=== PATIENT | female | born 1960 | race Caucasian/White ===

== ENCOUNTER → 2016-12-10 | Outpatient (CLI) | payer MEDICAID ==
[~2016-12-10] MED LIST: /ADVA50050; /ESOM40CA PO; /MOXI40TA; /TIOT18INH INH; ADV500INH INH; ADVAIR INH; ALBU17IN2 INH; ALBU83IN INH; ALBUT0.05 INHALATION; ALBUTEROL INHALATION; ALBUTEROL LIQ; AMIT75TA PO; AMIT75TA2 PO; AMITRIP PO; AMITRIP100 PO; AMITRIP75 PO; AMO500 PO; ASPI1TAB PO; ASPI81TA13 PO; ATOR1TAB21 PO; ATROVENT0.02%; ATROVENT0.02% INH; ATROVENTIN INHALATION; AZIT250T3 OR; AZMACORT; BACLOFEN10 PO; BENZ100C5 PO; COLA100C2 PO; COMBAER6 INH; COMBIVENT; COMBIVENT PO; CYMBALTA20 PO; DARVOCET-N PO; DULO20CA PO; FLEXERIL PO; FLEXERIL10 PO; GABA-282 PO; GUAI1TAB PO; GUAI400T6 PO; HABITROL2 TOPICAL; IPRA2IN INH; IPRATROP INHALATION; IPRATROPIUM; LIDODERM PATCH; LIPI10TA PO; LIPITOR10 PO; MELO15TA4 PO; MELOPOW; MELOPOW PO; MOBIC15 PO; MUCINEX; MUCU400T2 PO; NASONEX NASAL; NASONEX NASAL SPRAY; NEUR300C PO; NEURONTIN3 PO; NICO14DI3; NICO21DI4; NICO21PAT TD; NORCO PO; OCEAN NASAL SPRAY; OMEP20CA3 PO; PRED10TA PO; PRED10TA2; PREVACID; PREVACID30 PO; RELAFEN PO; SING10TA31 PO; SING10TA32 PO; SINGULAI10 PO; SPIR1CAP INH; SPIRIVA INH; TESS100C; TESS100C PO; TESSALO100 PO; TORADOL PO; TRAM50TA2 PO; ULTRTA; ULTRTA PO; VENL75TA2 PO; VENL75TA3 PO; VICO5TAB; VICODIN PO; VIOXX25 PO; VITA50003 PO; [UNRECOGNIZED DRUG - OTHER]; [UNRECOGNIZED DRUG - OTHER] PO; [UNRECOGNIZED DRUG - OTHER] PO
--- NOTE | 2016-12-10 12:07 | REP ---
Bilateral carotid artery duplex ultrasound: Peak flow velocity analysis: RIGHT LEFT ICA. Peak flow velocity cm/sec 53 the 43 ICA Diastolic flow velocity cm/sec 24 18 ICA/CCA Ratio 0.9 0.7 There is a small shallow focal atheromatous plaque at the origin of the right ICA. Otherwise there is intimal thickening bilaterally. Peak flow velocities are normal. Findings indicate less than 50% narrowing. There is no significant stenosis on the right on the left. There is antegrade flow in the vertebral arteries bilaterally. Signed by Anant Delgado MD 12/10/2016 11:58 A
--- NOTE | 2016-12-10 12:30 | REP ---
MR BRAIN WITHOUT CONTRAST: HISTORY: Dizziness. There are no areas of abnormal signal intensity in the brain. There is no intraparenchymal hemorrhage, infarct, mass or midline shift. The ventricular system is normal in appearance. There is no extracerebral collection. Minimal mucosal thickening is present in the left mastoid air cells. The sinuses are clear. Impression: There is no intracranial lesion. Signed by Frandy Bran MD 12/10/2016 12:33 P
== END ==
LOC: M RAD 10:41
PROVIDERS: ATTEND Physician Assistant Medical
DX: R42 Dizziness and giddiness (principal)

== ENCOUNTER → 2016-12-31 | Outpatient (CLI) | payer MEDICAID ==
[2016-12-31 16:47] LABS: BASO % 0.3 % (0.0-1.0); EOS # 0.2 K/mm3 (0.0-0.50); EOS % 2.5 % (0.0-3.0); LYMPH # 3.3 K/mm3 (1.5-4.5); LYMPH % 36.1 % (24.0-44.0); MEAN CORPUSCULAR HEMOGLOBIN 28.7 pg (27.0-33.0); MEAN CORPUSCULAR HGB CONC 31.3 g/dl (32.0-36.5); MEAN CORPUSCULAR VOLUME 91.6 fl (80.0-96.0); MONO # 0.6 K/mm3 (0.0-0.8); NEUTROPHILS # 4.8 K/mm3 (1.8-7.7); NEUTROPHILS % 52.3 % (36.0-66.0); RED CELL DISTRIBUTION WIDTH 12.4 % (11.5-14.5); WHITE BLOOD COUNT 9.2 K/mm3 (4.0-10.0)
[2016-12-31 16:59] LABS: ALBUMIN 3.5 GM/DL (3.2-5.2); ALKALINE PHOSPHATASE 83 U/L (45-117); ALT/SGPT 20 U/L (12-78); ANION GAP 6 MEQ/L (8-16); AST/SGOT 12 U/L (15-37); BILIRUBIN,TOTAL 0.3 MG/DL (0.2-1.0); BLOOD UREA NITROGEN 13 MG/DL (7-18); CALCIUM LEVEL 8.7 MG/DL (8.5-10.1); CARBON DIOXIDE LEVEL 35 MEQ/L (21-32); CHLORIDE LEVEL 98 MEQ/L (98-107); CREATININE FOR GFR 0.52 MG/DL (0.55-1.02); FERRITIN 44 NG/ML (8-252); GLOMERULAR FILTRATION RATE > 60.0 (>51); GLUCOSE, FASTING 97 MG/DL (70-105); POTASSIUM SERUM 4.5 MEQ/L (3.5-5.1); SODIUM LEVEL 139 MEQ/L (136-145); TOTAL PROTEIN 6.2 GM/DL (6.4-8.2)
[2016-12-31 17:01] LABS: FOLATE 9.6 NG/ML; VITAMIN B12 LEVEL 386 PG/ML
== END ==
LOC: M WUC 11:24
PROVIDERS: ATTEND Physician Assistant Medical
DX: R42 Dizziness and giddiness (principal)

== ENCOUNTER → 2018-01-17 | Outpatient (REF) | payer OTHER, MEDICAID ==
[2018-01-17 19:22] LABS: BASO % 0.1 % (0.0-1.0); EOS % 0.1 % (0.0-3.0); HEMATOCRIT 38.4 % (36.0-47.0); HEMOGLOBIN 11.9 g/dl (12.0-15.5); IMMATURE GRANULOCYTE % 0.3 % (0-3.0); LYMPH % 11.1 % (24.0-44.0); MEAN CORPUSCULAR HEMOGLOBIN 27.3 pg (27.0-33.0); MEAN CORPUSCULAR VOLUME 88.1 fl (80.0-96.0); MONO # 0.2 10^3/uL (0.0-0.8); MONO % 1.8 % (0.0-5.0); NEUTROPHILS # 7.5 10^3/uL (1.8-7.7); NEUTROPHILS % 86.6 % (36.0-66.0); PLATELET COUNT, AUTOMATED 252 10^3/uL (150-450); RED BLOOD COUNT 4.36 10^6/uL (4.00-5.40); RED CELL DISTRIBUTION WIDTH 12.7 % (11.5-14.5); WHITE BLOOD COUNT 8.7 10^3/uL (4.0-10.0)
[2018-01-17 19:53] LABS: ALBUMIN 3.7 GM/DL (3.2-5.2); ALBUMIN/GLOBULIN RATIO 1.23 (1.00-1.93); ALKALINE PHOSPHATASE 67 U/L (45-117); ALT/SGPT 23 U/L (12-78); ANION GAP 5 MEQ/L (8-16); AST/SGOT 14 U/L (7-37); BILIRUBIN,TOTAL 0.3 MG/DL (0.2-1.0); BLOOD UREA NITROGEN 8 MG/DL (7-18); CALCIUM LEVEL 9.4 MG/DL (8.5-10.1); CARBON DIOXIDE LEVEL 37 MEQ/L (21-32); CHLORIDE LEVEL 99 MEQ/L (98-107); CHOLESTEROL LEVEL 204 MG/DL (<200); CHOLESTEROL RISK RATIO 1.773 (<5); CREATININE FOR GFR 0.44 MG/DL (0.55-1.30); FERRITIN 19 NG/ML (8-252); GLOMERULAR FILTRATION RATE > 60.0 (>51); GLUCOSE, FASTING 108 MG/DL (70-100); HDL CHOLESTEROL 115 MG/DL (>40); IRON (FE) 60 UG/DL (50-170); LDL CHOLESTEROL 74.8 MG/DL (<100); NON-HDL-C 89 MG/DL; POTASSIUM SERUM 4.3 MEQ/L (3.5-5.1); SODIUM LEVEL 141 MEQ/L (136-145); THYROID STIMULATING HORMONE 0.517 uIU/ML (0.358-3.740); TOTAL PROTEIN 6.7 GM/DL (6.4-8.2); TRIGLYCERIDES LEVEL 71 MG/DL (<150)
[2018-01-17 19:55] LABS: FOLATE 12.2 NG/ML (>5.4); VITAMIN B12 LEVEL 340 PG/ML (247-911)
[2018-01-17 20:31] LABS: ESTIMATED AVERAGE GLUCOSE 120 MG/DL (60-110); HEMOGLOBIN A1c 5.8 %
[2018-01-18 10:58] LABS: TOTAL 25(OH) VITAMIN D 20.1 NG/ML (30.0-100.0)
== END ==
LOC: M LAB REF 19:00
DX: Z13.9 Encounter for screening, unspecified (principal)

== ENCOUNTER 2018-06-01 16:27 | Inpatient (IN) | payer OTHER, MEDICAID ==
[2018-06-01 17:36] LABS: BASO % 0.1 % (0.0-1.0); EOS % 0.1 % (0.0-3.0); HEMATOCRIT 37.1 % (36.0-47.0); HEMOGLOBIN 11.2 g/dl (12.0-15.5); IMMATURE GRANULOCYTE % 0.3 % (0-3.0); LYMPH # 0.8 10^3/uL (1.5-4.5); LYMPH % 9.3 % (24.0-44.0); MEAN CORPUSCULAR HEMOGLOBIN 27.6 pg (27.0-33.0); MEAN CORPUSCULAR HGB CONC 30.2 g/dl (32.0-36.5); MEAN CORPUSCULAR VOLUME 91.4 fl (80.0-96.0); MONO # 0.3 10^3/uL (0.0-0.8); MONO % 3.5 % (0.0-5.0); NEUTROPHILS # 7.8 10^3/uL (1.8-7.7); NEUTROPHILS % 86.7 % (36.0-66.0); PLATELET COUNT, AUTOMATED 279 10^3/uL (150-450); RED BLOOD COUNT 4.06 10^6/uL (4.00-5.40)
[2018-06-01] MEDS: methylPREDNISolone INJ 125 MG/2 ML VIAL (J2930) IV (17:37)
[2018-06-01] MEDS: IPRATROPIUM 0.5MG/ALBUTEROL 2.5MG INH SOL UD 3ML (DUONEB)(J7620) NEB ×3 (17:46→21:11)
[2018-06-01 18:07] LABS: ALBUMIN 3.7 GM/DL (3.2-5.2); ALBUMIN/GLOBULIN RATIO 1.28 (1.00-1.93); ALKALINE PHOSPHATASE 74 U/L (45-117); ALT/SGPT 24 U/L (12-78); ANION GAP 6 MEQ/L (8-16); AST/SGOT 20 U/L (7-37); BILIRUBIN,DIRECT 0.1 MG/DL (0.0-0.2); BILIRUBIN,TOTAL 0.2 MG/DL (0.2-1.0); BLOOD UREA NITROGEN 9 MG/DL (7-18); CALCIUM LEVEL 9.4 MG/DL (8.5-10.1); CARBON DIOXIDE LEVEL 42 MEQ/L (21-32); CHLORIDE LEVEL 90 MEQ/L (98-107); CPK CREATINE PHOSPHOKINASE 84 U/L (26-192); CREATININE FOR GFR 0.48 MG/DL (0.55-1.30); GLOMERULAR FILTRATION RATE > 60.0 (>51); GLUCOSE, FASTING 147 MG/DL (70-100); MB/CK RELATIVE INDEX 2.74 (< OR =4); POTASSIUM SERUM 4.2 MEQ/L (3.5-5.1); SODIUM LEVEL 138 MEQ/L (136-145); THYROID STIMULATING HORMONE 0.873 uIU/ML (0.358-3.740); TOTAL PROTEIN 6.6 GM/DL (6.4-8.2); TROPONIN I < 0.02 NG/ML (< 0.10)
[2018-06-01 18:28] LABS: ABG HCO3 45.8 MEQ/L (22.0-26.0); ABG O2 SATURATION 93.1 % (95.0-99.0); ABG PARTIAL PRESSURE O2 62.8 mmHg (75.0-100.0); ABG STANDARD HCO3 40.9 MEQ/L (22.0-26.0); ABG TOTAL CO2 48.2 MEQ/L (22.0-29.0); ABG pH (ARTERIAL) 7.382 UNITS (7.350-7.450)
[2018-06-01 18:34] LABS: ABG PARTIAL PRESSURE CO2 78.8 mmHg (35.0-45.0)
[2018-06-01] MEDS: FUROSEMIDE 20 MG/2 ML VIAL (J1940) IV (18:58)
[2018-06-01] MEDS ORDERED: ONDANSETRON 4MG/2ML VIAL (J2405) IV (20:15)
[2018-06-01] MEDS ORDERED: GABAPENTIN 300 MG CAP PO (20:15)
[2018-06-01 20:42] LABS: NT-PRO BNP 123 PG/ML (<125)
[2018-06-01] MEDS: ATORVASTATIN 20 MG TAB PO (23:32)
[2018-06-01] MEDS: AMITRIPTYLINE 25 MG TAB PO (23:32)
[2018-06-01] MEDS: FUROSEMIDE 40 MG/4 ML VIAL (J1940) IV (23:34)
[2018-06-01 23:47] LABS: ABG BASE EXCESS 16.8 (-2.0-2.0); ABG HCO3 45.8 MEQ/L (22.0-26.0); ABG O2 SATURATION 97.8 % (95.0-99.0); ABG PARTIAL PRESSURE O2 97.9 mmHg (75.0-100.0); ABG STANDARD HCO3 40.9 MEQ/L (22.0-26.0); ABG TOTAL CO2 48.3 MEQ/L (22.0-29.0); ABG pH (ARTERIAL) 7.372 UNITS (7.350-7.450)
[2018-06-01 23:48] LABS: ABG PARTIAL PRESSURE CO2 80.7 mmHg (35.0-45.0)
[2018-06-02] MEDS: methylPREDNISolone INJ 125 MG/2 ML VIAL (J2930) IV ×3 (01:09→17:36)
[2018-06-02 05:14] LABS: HEMATOCRIT 36.8 % (36.0-47.0); HEMOGLOBIN 11.1 g/dl (12.0-15.5); MEAN CORPUSCULAR HEMOGLOBIN 26.8 pg (27.0-33.0); MEAN CORPUSCULAR HGB CONC 30.2 g/dl (32.0-36.5); MEAN CORPUSCULAR VOLUME 88.9 fl (80.0-96.0); PLATELET COUNT, AUTOMATED 276 10^3/uL (150-450); RED BLOOD COUNT 4.14 10^6/uL (4.00-5.40); RED CELL DISTRIBUTION WIDTH 11.9 % (11.5-14.5); WHITE BLOOD COUNT 6.5 10^3/uL (4.0-10.0)
[2018-06-02 05:30] LABS: ANION GAP 6 MEQ/L (8-16); BLOOD UREA NITROGEN 11 MG/DL (7-18); CARBON DIOXIDE LEVEL 44 MEQ/L (21-32); CHLORIDE LEVEL 90 MEQ/L (98-107); CREATININE FOR GFR 0.37 MG/DL (0.55-1.30); GLOMERULAR FILTRATION RATE > 60.0 (>51); GLUCOSE, FASTING 156 MG/DL (70-100); POTASSIUM SERUM 3.9 MEQ/L (3.5-5.1); SODIUM LEVEL 140 MEQ/L (136-145)
[2018-06-02 06:24] LABS: ABG BASE EXCESS 16.8 (-2.0-2.0); ABG HCO3 46.3 MEQ/L (22.0-26.0); ABG O2 SATURATION 99.4 % (95.0-99.0); ABG STANDARD HCO3 40.8 MEQ/L (22.0-26.0); ABG pH (ARTERIAL) 7.339 UNITS (7.350-7.450)
[2018-06-02 06:26] LABS: ABG PARTIAL PRESSURE CO2 87.9 mmHg (35.0-45.0)
[2018-06-02] MEDS: IPRATROPIUM 0.5MG/ALBUTEROL 2.5MG INH SOL UD 3ML (DUONEB)(J7620) NEB ×4 (08:10→19:59)
[2018-06-02] MEDS ORDERED: PANTOPRAZOLE 40MG TAB (PROTONIX) PO (09:00)
[2018-06-02] MEDS ORDERED: FUROSEMIDE 40 MG/4 ML VIAL (J1940) IV (09:00)
[2018-06-02 09:13] LABS: ABG BASE EXCESS 17.7 (-2.0-2.0); ABG HCO3 46.3 MEQ/L (22.0-26.0); ABG O2 SATURATION 96.7 % (95.0-99.0); ABG PARTIAL PRESSURE O2 81.6 mmHg (75.0-100.0); ABG STANDARD HCO3 41.7 MEQ/L (22.0-26.0); ABG TOTAL CO2 48.7 MEQ/L (22.0-29.0); ABG pH (ARTERIAL) 7.386 UNITS (7.350-7.450)
[2018-06-02] MEDS: MELOXICAM (MOBIC) 7.5 MG TAB PO (10:14)
[2018-06-02] MEDS: ASPIRIN 81 MG ENTERIC TAB PO (10:14)
[2018-06-02] MEDS: MONTELUKAST 10 MG TAB PO (10:14)
[2018-06-02] MEDS: OMEPRAZOLE 20 MG CAP PO (10:14)
[2018-06-02] MEDS: ENOXAPARIN 40 MG/0.4 ML SYRINGE (J1650) SC (10:15)
[2018-06-02] MEDS: NICOTINE 21MG/24HR 1 EA TRANSDERMAL TD (10:16)
[2018-06-02] MEDS: FUROSEMIDE 40 MG/4 ML VIAL (J1940) IV ×2 (10:16→17:33)
[2018-06-02] MEDS: ACETAMINOPHEN TAB 650MG DOSE (2X325MG) PO (17:36)
[2018-06-02] MEDS: AMITRIPTYLINE 25 MG TAB PO (20:50)
[2018-06-02] MEDS: ATORVASTATIN 20 MG TAB PO (20:50)
[2018-06-03] MEDS: methylPREDNISolone INJ 125 MG/2 ML VIAL (J2930) IV ×2 (02:06→08:49)
[2018-06-03 06:48] LABS: HEMATOCRIT 36.7 % (36.0-47.0); HEMOGLOBIN 11.1 g/dl (12.0-15.5); MEAN CORPUSCULAR HEMOGLOBIN 27.5 pg (27.0-33.0); MEAN CORPUSCULAR HGB CONC 30.2 g/dl (32.0-36.5); MEAN CORPUSCULAR VOLUME 90.8 fl (80.0-96.0); PLATELET COUNT, AUTOMATED 306 10^3/uL (150-450); RED BLOOD COUNT 4.04 10^6/uL (4.00-5.40); RED CELL DISTRIBUTION WIDTH 12.2 % (11.5-14.5); WHITE BLOOD COUNT 13.2 10^3/uL (4.0-10.0)
[2018-06-03] MEDS: IPRATROPIUM 0.5MG/ALBUTEROL 2.5MG INH SOL UD 3ML (DUONEB)(J7620) NEB ×4 (07:16→20:00)
[2018-06-03 07:17] LABS: ANION GAP 3 MEQ/L (8-16); BLOOD UREA NITROGEN 29 MG/DL (7-18); CALCIUM LEVEL 9.3 MG/DL (8.5-10.1); CARBON DIOXIDE LEVEL 45 MEQ/L (21-32); CHLORIDE LEVEL 92 MEQ/L (98-107); CREATININE FOR GFR 0.66 MG/DL (0.55-1.30); GLOMERULAR FILTRATION RATE > 60.0 (>51); GLUCOSE, FASTING 140 MG/DL (70-100); POTASSIUM SERUM 4.6 MEQ/L (3.5-5.1); SODIUM LEVEL 140 MEQ/L (136-145)
[2018-06-03] MEDS: FUROSEMIDE 40 MG/4 ML VIAL (J1940) IV ×2 (08:49→16:08)
[2018-06-03] MEDS: ASPIRIN 81 MG ENTERIC TAB PO (08:50)
[2018-06-03] MEDS: MELOXICAM (MOBIC) 7.5 MG TAB PO (08:50)
[2018-06-03] MEDS: ENOXAPARIN 40 MG/0.4 ML SYRINGE (J1650) SC (08:50)
[2018-06-03] MEDS: NICOTINE 21MG/24HR 1 EA TRANSDERMAL TD (08:50)
[2018-06-03] MEDS: MONTELUKAST 10 MG TAB PO (08:51)
[2018-06-03] MEDS: OMEPRAZOLE 20 MG CAP PO (08:51)
[2018-06-03] MEDS: ADVAIR HFA 230/21MCG INHALER INH ×2 (09:00→21:14)
[2018-06-03 09:27] LABS: MAGNESIUM LEVEL 2.4 MG/DL (1.8-2.4)
[2018-06-03] MEDS ORDERED: CYCLOBENZAPRINE 5MG TABLET PO (12:45)
[2018-06-03] MEDS: GABAPENTIN 100 MG CAP PO ×2 (16:08→20:49)
[2018-06-03] MEDS: ATORVASTATIN 20 MG TAB PO (20:48)
[2018-06-03] MEDS: AMITRIPTYLINE 25 MG TAB PO (20:49)
[2018-06-03] MEDS: methylPREDNISolone INJ 40 MG/1 ML VIAL (J2920) IV (20:49)
[2018-06-04 06:05] LABS: HEMATOCRIT 36.1 % (36.0-47.0); MEAN CORPUSCULAR HEMOGLOBIN 27.4 pg (27.0-33.0); MEAN CORPUSCULAR HGB CONC 30.5 g/dl (32.0-36.5); MEAN CORPUSCULAR VOLUME 89.8 fl (80.0-96.0); PLATELET COUNT, AUTOMATED 291 10^3/uL (150-450); RED BLOOD COUNT 4.02 10^6/uL (4.00-5.40); RED CELL DISTRIBUTION WIDTH 12.4 % (11.5-14.5); WHITE BLOOD COUNT 12.9 10^3/uL (4.0-10.0)
[2018-06-04 06:47] LABS: ANION GAP 5 MEQ/L (8-16); BLOOD UREA NITROGEN 30 MG/DL (7-18); CALCIUM LEVEL 9.5 MG/DL (8.5-10.1); CHLORIDE LEVEL 90 MEQ/L (98-107); CREATININE FOR GFR 0.59 MG/DL (0.55-1.30); GLOMERULAR FILTRATION RATE > 60.0 (>51); GLUCOSE, FASTING 161 MG/DL (70-100); MAGNESIUM LEVEL 2.1 MG/DL (1.8-2.4); POTASSIUM SERUM 4.2 MEQ/L (3.5-5.1); SODIUM LEVEL 142 MEQ/L (136-145)
[2018-06-04 06:48] LABS: CARBON DIOXIDE LEVEL 47 MEQ/L (21-32)
[2018-06-04] MEDS: ADVAIR HFA 230/21MCG INHALER INH ×2 (07:14→22:10)
[2018-06-04] MEDS: IPRATROPIUM 0.5MG/ALBUTEROL 2.5MG INH SOL UD 3ML (DUONEB)(J7620) NEB ×4 (07:19→20:00)
[2018-06-04] MEDS: ASPIRIN 81 MG ENTERIC TAB PO (08:52)
[2018-06-04] MEDS: OMEPRAZOLE 20 MG CAP PO (08:52)
[2018-06-04] MEDS: MELOXICAM (MOBIC) 7.5 MG TAB PO (08:53)
[2018-06-04] MEDS: GABAPENTIN 100 MG CAP PO ×3 (08:54→20:29)
[2018-06-04] MEDS: VITAMIN D 50,000 UNITS CAPSULE (ERGOCALCIFEROL 1.25MG) PO (08:54)
[2018-06-04] MEDS: NICOTINE 21MG/24HR 1 EA TRANSDERMAL TD (08:54)
[2018-06-04] MEDS: ENOXAPARIN 40 MG/0.4 ML SYRINGE (J1650) SC (08:55)
[2018-06-04] MEDS: methylPREDNISolone INJ 40 MG/1 ML VIAL (J2920) IV ×2 (08:56→20:28)
[2018-06-04] MEDS: FUROSEMIDE 40 MG/4 ML VIAL (J1940) IV (08:56)
[2018-06-04] MEDS: MONTELUKAST 10 MG TAB PO (08:57)
[2018-06-04] MEDS: FUROSEMIDE 40 MG TAB PO (17:28)
[2018-06-04] MEDS: AMITRIPTYLINE 25 MG TAB PO (20:29)
[2018-06-04] MEDS: ATORVASTATIN 20 MG TAB PO (20:29)
[2018-06-05 06:43] LABS: HEMATOCRIT 36.2 % (36.0-47.0); HEMOGLOBIN 10.9 g/dl (12.0-15.5); MEAN CORPUSCULAR HGB CONC 30.1 g/dl (32.0-36.5); MEAN CORPUSCULAR VOLUME 89.6 fl (80.0-96.0); PLATELET COUNT, AUTOMATED 269 10^3/uL (150-450); RED BLOOD COUNT 4.04 10^6/uL (4.00-5.40); RED CELL DISTRIBUTION WIDTH 12.4 % (11.5-14.5)
[2018-06-05 07:03] LABS: ANION GAP 3 MEQ/L (8-16); BLOOD UREA NITROGEN 26 MG/DL (7-18); CALCIUM LEVEL 8.9 MG/DL (8.5-10.1); CARBON DIOXIDE LEVEL 45 MEQ/L (21-32); CHLORIDE LEVEL 90 MEQ/L (98-107); CREATININE FOR GFR 0.56 MG/DL (0.55-1.30); GLOMERULAR FILTRATION RATE > 60.0 (>51); GLUCOSE, FASTING 132 MG/DL (70-100); MAGNESIUM LEVEL 2.1 MG/DL (1.8-2.4); POTASSIUM SERUM 3.6 MEQ/L (3.5-5.1); SODIUM LEVEL 138 MEQ/L (136-145)
[2018-06-05] MEDS: IPRATROPIUM 0.5MG/ALBUTEROL 2.5MG INH SOL UD 3ML (DUONEB)(J7620) NEB ×4 (07:58→20:00)
[2018-06-05] MEDS: ADVAIR HFA 230/21MCG INHALER INH ×2 (07:58→20:03)
[2018-06-05] MEDS: ENOXAPARIN 40 MG/0.4 ML SYRINGE (J1650) SC (09:00)
[2018-06-05] MEDS: methylPREDNISolone INJ 40 MG/1 ML VIAL (J2920) IV ×2 (09:37→20:11)
[2018-06-05] MEDS: MONTELUKAST 10 MG TAB PO (09:37)
[2018-06-05] MEDS: MELOXICAM (MOBIC) 7.5 MG TAB PO (09:38)
[2018-06-05] MEDS: NICOTINE 21MG/24HR 1 EA TRANSDERMAL TD (09:38)
[2018-06-05] MEDS: GABAPENTIN 100 MG CAP PO ×3 (09:38→20:11)
[2018-06-05] MEDS: ASPIRIN 81 MG ENTERIC TAB PO (09:38)
[2018-06-05] MEDS: OMEPRAZOLE 20 MG CAP PO (09:38)
[2018-06-05] MEDS: FUROSEMIDE 40 MG TAB PO ×2 (12:09→16:54)
[2018-06-05] MEDS: ATORVASTATIN 20 MG TAB PO (20:11)
[2018-06-05] MEDS: AMITRIPTYLINE 25 MG TAB PO (20:11)
[2018-06-06] MEDS: BISACODYL 5 MG TAB PO (02:27)
[2018-06-06 07:17] LABS: HEMATOCRIT 34.7 % (36.0-47.0); HEMOGLOBIN 10.8 g/dl (12.0-15.5); MEAN CORPUSCULAR HEMOGLOBIN 27.6 pg (27.0-33.0); MEAN CORPUSCULAR HGB CONC 31.1 g/dl (32.0-36.5); MEAN CORPUSCULAR VOLUME 88.5 fl (80.0-96.0); PLATELET COUNT, AUTOMATED 263 10^3/uL (150-450); RED BLOOD COUNT 3.92 10^6/uL (4.00-5.40); RED CELL DISTRIBUTION WIDTH 12.2 % (11.5-14.5); WHITE BLOOD COUNT 9.6 10^3/uL (4.0-10.0)
[2018-06-06] MEDS: ADVAIR HFA 230/21MCG INHALER INH ×2 (07:50→20:07)
[2018-06-06 07:51] LABS: ANION GAP 2 MEQ/L (8-16); BLOOD UREA NITROGEN 22 MG/DL (7-18); CALCIUM LEVEL 9.1 MG/DL (8.5-10.1); CHLORIDE LEVEL 88 MEQ/L (98-107); CREATININE FOR GFR 0.48 MG/DL (0.55-1.30); GLOMERULAR FILTRATION RATE > 60.0 (>51); GLUCOSE, FASTING 142 MG/DL (70-100); MAGNESIUM LEVEL 2.2 MG/DL (1.8-2.4); POTASSIUM SERUM 3.6 MEQ/L (3.5-5.1); SODIUM LEVEL 138 MEQ/L (136-145)
[2018-06-06] MEDS: IPRATROPIUM 0.5MG/ALBUTEROL 2.5MG INH SOL UD 3ML (DUONEB)(J7620) NEB ×4 (07:51→20:00)
[2018-06-06 08:06] LABS: CARBON DIOXIDE LEVEL 48 MEQ/L (21-32)
[2018-06-06] MEDS: MELOXICAM (MOBIC) 7.5 MG TAB PO (08:18)
[2018-06-06] MEDS: methylPREDNISolone INJ 40 MG/1 ML VIAL (J2920) IV (08:18)
[2018-06-06] MEDS: OMEPRAZOLE 20 MG CAP PO (08:18)
[2018-06-06] MEDS: FUROSEMIDE 40 MG TAB PO ×2 (08:18→16:22)
[2018-06-06] MEDS: ENOXAPARIN 40 MG/0.4 ML SYRINGE (J1650) SC (08:18)
[2018-06-06] MEDS: GABAPENTIN 100 MG CAP PO ×3 (08:19→21:04)
[2018-06-06] MEDS: MONTELUKAST 10 MG TAB PO (08:19)
[2018-06-06] MEDS: NICOTINE 21MG/24HR 1 EA TRANSDERMAL TD (08:19)
[2018-06-06] MEDS: ASPIRIN 81 MG ENTERIC TAB PO (08:19)
[2018-06-06] MEDS: ACETAMINOPHEN TAB 650MG DOSE (2X325MG) PO (14:44)
[2018-06-06] MEDS: predniSONE 20 MG TAB PO (21:04)
[2018-06-06] MEDS: AMITRIPTYLINE 25 MG TAB PO (21:04)
[2018-06-06] MEDS: ATORVASTATIN 20 MG TAB PO (21:05)
[2018-06-06] MEDS: MOM 30ML SUSPENSION UDC PO (22:57)
[2018-06-07 06:10] LABS: HEMATOCRIT 37.6 % (36.0-47.0); HEMOGLOBIN 11.6 g/dl (12.0-15.5); MEAN CORPUSCULAR HEMOGLOBIN 27.3 pg (27.0-33.0); MEAN CORPUSCULAR HGB CONC 30.9 g/dl (32.0-36.5); MEAN CORPUSCULAR VOLUME 88.5 fl (80.0-96.0); PLATELET COUNT, AUTOMATED 284 10^3/uL (150-450); RED BLOOD COUNT 4.25 10^6/uL (4.00-5.40); WHITE BLOOD COUNT 11.8 10^3/uL (4.0-10.0)
[2018-06-07 06:35] LABS: BLOOD UREA NITROGEN 20 MG/DL (7-18); CALCIUM LEVEL 8.9 MG/DL (8.5-10.1); CHLORIDE LEVEL 86 MEQ/L (98-107); CREATININE FOR GFR 0.64 MG/DL (0.55-1.30); GLOMERULAR FILTRATION RATE > 60.0 (>51); GLUCOSE, FASTING 226 MG/DL (70-100); MAGNESIUM LEVEL 2.6 MG/DL (1.8-2.4); POTASSIUM SERUM 3.7 MEQ/L (3.5-5.1); SODIUM LEVEL 139 MEQ/L (136-145)
[2018-06-07 06:39] LABS: ANION GAP 5 MEQ/L (8-16)
[2018-06-07 07:39] LABS: CARBON DIOXIDE LEVEL 45 MEQ/L (21-32)
[2018-06-07] MEDS: ADVAIR HFA 230/21MCG INHALER INH (07:51)
[2018-06-07] MEDS: IPRATROPIUM 0.5MG/ALBUTEROL 2.5MG INH SOL UD 3ML (DUONEB)(J7620) NEB ×2 (07:53→12:20)
[2018-06-07] MEDS: NICOTINE 21MG/24HR 1 EA TRANSDERMAL TD (09:03)
[2018-06-07] MEDS: ENOXAPARIN 40 MG/0.4 ML SYRINGE (J1650) SC (09:03)
[2018-06-07] MEDS: DOCUSATE SODIUM 100 MG CAP PO (09:04)
[2018-06-07] MEDS: predniSONE 20 MG TAB PO (09:06)
[2018-06-07] MEDS: OMEPRAZOLE 20 MG CAP PO (09:06)
[2018-06-07] MEDS: GABAPENTIN 100 MG CAP PO (09:07)
[2018-06-07] MEDS: MONTELUKAST 10 MG TAB PO (09:07)
[2018-06-07] MEDS: FUROSEMIDE 40 MG TAB PO (09:07)
[2018-06-07] MEDS: ASPIRIN 81 MG ENTERIC TAB PO (09:07)
[2018-06-07] MEDS: MOM 30ML SUSPENSION UDC PO (09:13)
[2018-06-07] MEDS: BISACODYL 5 MG TAB PO (09:13)
[2018-06-07] MEDS: MELOXICAM (MOBIC) 7.5 MG TAB PO (09:14)
== END 2018-06-07 14:26 | disposition home health service (06) | DRG 194 ==
LOC: M MSPAV 06-02 12:16 → M ED 16:27 → M ED INP 20:01 → M ICU 22:29
DX: I50.33 Acute on chronic diastolic (congestive) heart failure (principal); J96.21 Acute and chronic respiratory failure with hypoxia; J96.22 Acute and chronic respiratory failure with hypercapnia; J44.1 Chronic obstructive pulmonary disease with (acute) exacerbation; E66.01 Morbid (severe) obesity due to excess calories; G62.9 Polyneuropathy, unspecified; F17.210 Nicotine dependence, cigarettes, uncomplicated; E78.5 Hyperlipidemia, unspecified; K21.9 Gastro-esophageal reflux disease without esophagitis; Z79.899 Other long term (current) drug therapy; Z79.82 Long term (current) use of aspirin; Z79.52 Long term (current) use of systemic steroids

== ENCOUNTER → 2018-08-04 | Outpatient (REF) | payer OTHER, MEDICAID ==
[2018-08-04 19:11] LABS: BASO % 0.4 % (0.0-1.0); EOS # 0.1 10^3/uL (0.0-0.50); EOS % 0.8 % (0.0-3.0); HEMATOCRIT 37.8 % (36.0-47.0); HEMOGLOBIN 11.2 g/dl (12.0-15.5); IMMATURE GRANULOCYTE % 0.4 % (0-3.0); LYMPH # 0.9 10^3/uL (1.5-4.5); LYMPH % 10.9 % (24.0-44.0); MEAN CORPUSCULAR HEMOGLOBIN 26.5 pg (27.0-33.0); MEAN CORPUSCULAR HGB CONC 29.6 g/dl (32.0-36.5); MEAN CORPUSCULAR VOLUME 89.6 fl (80.0-96.0); MONO # 0.4 10^3/uL (0.0-0.8); MONO % 4.6 % (0.0-5.0); NEUTROPHILS # 7.1 10^3/uL (1.8-7.7); NEUTROPHILS % 82.9 % (36.0-66.0); RED BLOOD COUNT 4.22 10^6/uL (4.00-5.40); RED CELL DISTRIBUTION WIDTH 12.1 % (11.5-14.5); WHITE BLOOD COUNT 8.5 10^3/uL (4.0-10.0)
[2018-08-04 19:30] LABS: POS COUNT POS FLAG
[2018-08-04 20:02] LABS: ALBUMIN 3.5 GM/DL (3.2-5.2); ALBUMIN/GLOBULIN RATIO 1.09 (1.00-1.93); ALKALINE PHOSPHATASE 97 U/L (45-117); ALT/SGPT 23 U/L (12-78); ANION GAP 5 MEQ/L (8-16); AST/SGOT 15 U/L (7-37); BILIRUBIN,TOTAL 0.2 MG/DL (0.2-1.0); BLOOD UREA NITROGEN 9 MG/DL (7-18); CALCIUM LEVEL 8.6 MG/DL (8.5-10.1); CHLORIDE LEVEL 87 MEQ/L (98-107); CHOLESTEROL LEVEL 214 MG/DL (<200); CHOLESTEROL RISK RATIO 1.739 (<5); CREATININE FOR GFR 0.53 MG/DL (0.55-1.30); FOLATE 11.3 NG/ML (>5.4); GLOMERULAR FILTRATION RATE > 60.0 (>51); GLUCOSE, FASTING 107 MG/DL (70-100); HDL CHOLESTEROL 123 MG/DL (>40); LDL CHOLESTEROL 78 MG/DL (<100); NON-HDL-C 91 MG/DL; POTASSIUM SERUM 4.6 MEQ/L (3.5-5.1); SODIUM LEVEL 140 MEQ/L (136-145); THYROID STIMULATING HORMONE 0.964 uIU/ML (0.358-3.740); TOTAL PROTEIN 6.7 GM/DL (6.4-8.2); TRIGLYCERIDES LEVEL 66 MG/DL (<150); VITAMIN B12 LEVEL 431 PG/ML (247-911)
[2018-08-04 21:44] LABS: CARBON DIOXIDE LEVEL 48 MEQ/L (21-32)
== END ==
LOC: M LAB REF 18:31
DX: Z13.9 Encounter for screening, unspecified (principal)
CPT/HCPCS: 82746

== ENCOUNTER 2018-09-02 14:38 | Inpatient (IN) | payer OTHER, MEDICAID ==
[~2018-09-02] VITALS: Ht 162.6 cm; Wt 98.5 kg
[~2018-09-02 14:38] MED LIST changes: -ASPI81TA13 PO; +ASPI81TA24 PO; +AZIT-12 OR; -AZIT250T3 OR; +AZIT500T2 PO; +BENZ-18 PO; -BENZ100C5 PO; +COLA100C5 PO; +DRIS50003 PO; -GABA-282 PO; +GABA-843 PO; -GUAI400T6 PO; +GUAI400T9 PO; +IPRA0.00 INH; +LASI40TA PO; +MELO15TA28 PO; -MELO15TA4 PO; +NICO7PA TD; +PRED10TA2 PO; +PRED25TA PO; +SPIR12.9 INH; +VENTAER INH; -VITA50003 PO; +VITA50005 PO
[2018-09-02] MEDS ORDERED: methylPREDNISolone INJ 125 MG/2 ML VIAL (J2930) IV ONE (15:15)
[2018-09-02] MEDS ORDERED: IPRATROPIUM 0.5MG/ALBUTEROL 2.5MG INH SOL UD 3ML (DUONEB)(J7620) NEB ONE (15:15)
[2018-09-02] MEDS ORDERED: ALBUTEROL SULFATE 2.5 MG/0.5 ML INH NEB SOLN INH ONE (15:15)
[2018-09-02 15:33] LABS: ABG BASE EXCESS 16.9 (-2.0-2.0); ABG O2 SATURATION 99.1 % (95.0-99.0); ABG PARTIAL PRESSURE O2 176.2 mmHg (75.0-100.0); ABG STANDARD HCO3 40.9 MEQ/L (22.0-26.0); ABG TOTAL CO2 52.8 MEQ/L (22.0-29.0)
[2018-09-02 15:36] LABS: ABG PARTIAL PRESSURE CO2 122.5 mmHg (35.0-45.0)
[2018-09-02] MEDS ORDERED: LORazepam 2 MG/ML VIAL (J2060) IV STA (16:04)
--- NOTE | 2018-09-02 16:15 | REP ---
Clinical: Cough and dyspnea. Technique: Portable semiupright view. Findings: Mediastinum and cardiac silhouette are relatively stable/normal. Lung wilson demonstrate mildly increased interstitial markings with indistinct pulmonary vasculature and suspected early Isidro B lines raising the possibility of pulmonary vascular congestion/interstitial edema. No effusion. No pneumothorax. Trace right middle lobe atelectasis cannot be excluded. Skeletal structures intact. Impression: Cannot exclude mild early pulmonary vascular congestion/interstitial edema as well as trace linear right middle lobe atelectasis. Electronically Signed by Luis Ware MD 09/02/2018 04:07 P
[2018-09-02] MEDS ORDERED: FUROSEMIDE 100 MG/10 ML VIAL (J1940) IV ONE (17:00)
[2018-09-02 17:19] LABS: ABG BASE EXCESS 11.7 (-2.0-2.0); ABG HCO3 42.6 MEQ/L (22.0-26.0); ABG O2 SATURATION 93.5 % (95.0-99.0); ABG PARTIAL PRESSURE O2 73.2 mmHg (75.0-100.0); ABG STANDARD HCO3 35.4 MEQ/L (22.0-26.0); ABG TOTAL CO2 45.7 MEQ/L (22.0-29.0); ABG pH (ARTERIAL) 7.232 UNITS (7.350-7.450)
[2018-09-02 17:20] LABS: ABG PARTIAL PRESSURE CO2 103.5 mmHg (35.0-45.0)
[2018-09-02 17:42] LABS: VENOUS BASE EXCESS 14.2 (-2.0-2.0); VENOUS HCO3 43.4 MEQ/L (23.0-27.0); VENOUS O2 SATURATION 98.8 % (60.0-80.0); VENOUS PARTIAL PRESSURE CO2 84.4 mmHg (38.0-50.0); VENOUS PARTIAL PRESSURE O2 139.9 mmHg (30.0-50.0); VENOUS PH 7.329 UNITS (7.330-7.430); VENOUS STANDARD HCO3 38.1 MEQ/L
[2018-09-02 17:44] LABS: BASO % 0.1 % (0.0-1.0); EOS % 0.1 % (0.0-3.0); HEMATOCRIT 33.8 % (36.0-47.0); LYMPH # 0.3 10^3/uL (1.5-4.5); LYMPH % 3.4 % (24.0-44.0); MEAN CORPUSCULAR HEMOGLOBIN 26.2 pg (27.0-33.0); MEAN CORPUSCULAR HGB CONC 29.6 g/dl (32.0-36.5); MEAN CORPUSCULAR VOLUME 88.5 fl (80.0-96.0); MONO # 0.3 10^3/uL (0.0-0.8); MONO % 2.9 % (0.0-5.0); NEUTROPHILS % 93.1 % (36.0-66.0); PLATELET COUNT, AUTOMATED 254 10^3/uL (150-450); RED BLOOD COUNT 3.82 10^6/uL (4.00-5.40); WHITE BLOOD COUNT 9.7 10^3/uL (4.0-10.0)
[2018-09-02 18:01] LABS: INR 0.95; PROTHROMBIN TIME 12.8 SECONDS (12.1-14.4)
[2018-09-02 18:09] LABS: ALBUMIN 3.3 GM/DL (3.2-5.2); ALT/SGPT 25 U/L (12-78); BILIRUBIN,DIRECT < 0.1 MG/DL (0.0-0.2); BILIRUBIN,TOTAL 0.2 MG/DL (0.2-1.0); BLOOD UREA NITROGEN 11 MG/DL (7-18); CARBON DIOXIDE LEVEL 40 MEQ/L (21-32); CHLORIDE LEVEL 92 MEQ/L (98-107); CPK CREATINE PHOSPHOKINASE 110 U/L (26-192); CREATININE FOR GFR 0.35 MG/DL (0.55-1.30); GLOMERULAR FILTRATION RATE > 60.0 (>51); GLUCOSE, FASTING 121 MG/DL (70-100); MB/CK RELATIVE INDEX 7.09 (< OR =4); NT-PRO BNP 142 PG/ML (<125); POTASSIUM SERUM 4.3 MEQ/L (3.5-5.1); SODIUM LEVEL 137 MEQ/L (136-145); TOTAL PROTEIN 6.2 GM/DL (6.4-8.2); TROPONIN I < 0.02 NG/ML (< 0.10)
[2018-09-02] MEDS ORDERED: cefTRIAXone SOD 1 GM in D5W MINI-BAG PLUS 50 ML IV ONE (18:15)
--- NOTE | 2018-09-02 18:45 | ECGEPIP ---
Stationary ECG Study [facility] - ED Test Date: 2018-09-02 Pat Name: HARRY GUTIERRES Department: Room: - Gender: F Data Analytics Developer: jarett : 1960 Requested By: Berenice Rodas Order Number: [id number] Reading MD: Naren Barton Measurements Intervals [place] Rate: 120 P: 77 [place]: 120 QRS: 103 QRSD: 87 T: 40 QT: 297 QTc: 420 Interpretive Statements SINUS TACHYCARDIA BASELINE ARTIFACT AFFECTS INTERPRETATION SIMILAR TO 06/01/18 Electronically Signed On 09-02-2018 18:44:36 EST by Naren Barton
--- NOTE | 2018-09-02 19:23 | HPE ---
DATE OF ADMISSION: 09/02/2018 A 57-year-old female with past medical history of oxygen (O2) dependent end-stage chronic obstructive pulmonary disease (COPD) requiring 4 liters, history of hyperlipidemia, morbid obesity, also steroid dependent, presents to the emergency room with increasing shortness of breath for the last 2 weeks, unrelieved by inhalers. She also has a cough associated with productive yellow sputum. No subjective feeling of fever, aches or chills. She also has a history of intubation due to COPD exacerbation in the past. In the emergency room (ER), she received Solu-Medrol and DuoNebs times two. Through her arterial blood gas (ABG), was found to be in hypercapnic respiratory failure, was started on bilevel positive airway pressure (BiPAP) and repeat BiPAPs have showed improved pCO2 and blood pH. The patient is awake, alert, oriented times three, and she gave a coherent history. She will be admitted to the intensive care unit (ICU) for further management. PAST MEDICAL HISTORY: Hyperlipidemia. Morbid obesity. End-stage COPD, steroid dependent and requiring 4 liters of nasal cannula. Chronic active tobacco abuser. Gastroesophageal reflux disease (GERD). ALLERGIES: She has no known drug allergies. FAMILY HISTORY: Noncontributory. SOCIAL HISTORY: The patient still smokes a half a pack a day, used to smoke a pack a day for many years but still is actively smoking. Denies alcohol or illicit drugs. MEDICATIONS: Medications she takes at home are as follows: - albuterol inhaler as needed - amitriptyline 75 mg orally at bedtime - aspirin 81 mg orally daily - atorvastatin 20 mg orally at bedtime - Zithromax 500 mg orally every 2 days - Colace 100 mg orally twice daily - Lasix 40 mg orally daily - gabapentin 300 mg orally three times a day as needed - meloxicam 15 mg orally daily - montelukast 10 mg orally daily - nicotine patch 7 mg transdermal daily - omeprazole 20 mg orally daily - prednisone 10 mg orally daily - salmeterol/fluticasone 500-50 one puff inhaled twice daily - Spiriva two inhalations daily - Drisdol 50,000 units by mouth every week REVIEW OF SYSTEMS: Negative all ten major systems except what is mentioned in the history of the present illness. Vital Signs: Blood pressure 152/73, heart rate is 120, regular, respiratory rate 18, temperature 98.2, oxygen saturation is 95% on Bilevel positive airway pressure (BiPAP). Head is atraumatic, normocephalic. Neck supple. No jugular venous distention (JVD). Lungs have late expiratory wheezes bilaterally. S1, S2 audible, No murmurs appreciated. Abdomen: Soft, positive bowel sounds. +1 pedal edema. Skin: Intact. Neurologic Examination: Patient awake, alert, oriented times three. LABORATORY: ABG initial on room air was pH of 7.220, pCO2 of 122.5, pO2 of 176.2. With BiPAP, the patient's blood pH is now 7.329, pCO2 is 84.4, pO2 is 139.9. WBC is 9.7, hemoglobin is 10.0, hematocrit 33.8, platelets are 254,000. Sodium 137, potassium 4.3, chloride 92, CO2 40, anion gap 5, BUN 11, creatinine 0.35, TSH 0.8, lactic acid 0.7. Troponin is less than 0.02. Chest x-ray shows no obvious consolidation. IMPRESSION: 1. Acute hypercapnic respiratory failure. 2. Acute bronchitis. PLAN: Patient is to be admitted to the ICU. Will continue current BiPAP settings. Dr. Montalvo will be seeing the patient on consult, and he will decide on when to switch her from BiPAP back to her 4 liters nasal cannula. We are going to start her on IV Levaquin 500 daily and DuoNebs every 4 hours as needed, as well as Solu-Medrol 40 mg IV every 8 hours. I will continue her other preadmission medications and will continue her care in the ICU.
[2018-09-02] MEDS ORDERED: PRED10TA2 PO (19:35)
[2018-09-02] MEDS ORDERED: NICODIS3 TD (19:35)
[2018-09-02] MEDS ORDERED: DOCU100C16 PO (19:35)
[2018-09-02] MEDS ORDERED: FURO40TA2 PO (19:35)
[2018-09-02] MEDS ORDERED: OMEP40CA2 PO (19:36)
[2018-09-02 20:47] VITALS: BP 167/73
[2018-09-02 21:00] VITALS: BP 116/68
[2018-09-02 22:00] VITALS: BP 140/86
[2018-09-02] MEDS ORDERED: NICOTINE 7 MG/24 HR TRANSDERMAL TD ONE (22:15)
[2018-09-02] MEDS: MONTELUKAST 10 MG TAB PO SCH (22:36)
[2018-09-02] MEDS: ATORVASTATIN 20 MG TAB PO SCH (22:37)
[2018-09-02] MEDS: AMITRIPTYLINE 25 MG TAB PO SCH (22:37)
[2018-09-02] MEDS: DOCUSATE SODIUM 100 MG CAP PO SCH (22:37)
[2018-09-02 23:00] VITALS: BP 144/65
[2018-09-02] MEDS: methylPREDNISolone INJ 40 MG/1 ML VIAL (J2920) IV SCH (23:07)
[2018-09-02] MEDS: ADVAIR HFA 230/21MCG INHALER INH SCH (23:26)
[2018-09-03] VITALS (20 sets, daily range): BP systolic 113–168; BP diastolic 55–78; O2SAT 97–99
[2018-09-03 04:24] LABS: HEMATOCRIT 32.6 % (36.0-47.0); HEMOGLOBIN 9.8 g/dl (12.0-15.5); LYMPH # 0.5 10^3/uL (1.5-4.5); LYMPH % 9.2 % (24.0-44.0); MEAN CORPUSCULAR HEMOGLOBIN 26.2 pg (27.0-33.0); MEAN CORPUSCULAR HGB CONC 30.1 g/dl (32.0-36.5); MEAN CORPUSCULAR VOLUME 87.2 fl (80.0-96.0); MONO # 0.1 10^3/uL (0.0-0.8); MONO % 1.2 % (0.0-5.0); NEUTROPHILS # 4.5 10^3/uL (1.8-7.7); NEUTROPHILS % 89.2 % (36.0-66.0); PLATELET COUNT, AUTOMATED 253 10^3/uL (150-450); RED BLOOD COUNT 3.74 10^6/uL (4.00-5.40)
[2018-09-03 04:45] LABS: BLOOD UREA NITROGEN 12 MG/DL (7-18); CALCIUM LEVEL 9.1 MG/DL (8.5-10.1); CARBON DIOXIDE LEVEL 44 MEQ/L (21-32); CHLORIDE LEVEL 89 MEQ/L (98-107); CREATININE FOR GFR 0.38 MG/DL (0.55-1.30); GLOMERULAR FILTRATION RATE > 60.0 (>51); GLUCOSE, FASTING 131 MG/DL (70-100); POTASSIUM SERUM 4.4 MEQ/L (3.5-5.1); SODIUM LEVEL 136 MEQ/L (136-145)
[2018-09-03 08:22] LABS: ABG BASE EXCESS 21.6 (-2.0-2.0); ABG HCO3 50.7 MEQ/L (22.0-26.0); ABG PARTIAL PRESSURE CO2 90.2 mmHg (35.0-45.0); ABG PARTIAL PRESSURE O2 151.4 mmHg (75.0-100.0); ABG STANDARD HCO3 45.9 MEQ/L (22.0-26.0); ABG TOTAL CO2 53.5 MEQ/L (22.0-29.0); ABG pH (ARTERIAL) 7.368 UNITS (7.350-7.450)
[2018-09-03] MEDS: DOCUSATE SODIUM 100 MG CAP PO SCH ×2 (08:56→20:02)
[2018-09-03] MEDS: ASPIRIN 81 MG ENTERIC TAB PO SCH (08:56)
[2018-09-03] MEDS: methylPREDNISolone INJ 40 MG/1 ML VIAL (J2920) IV SCH (08:56)
[2018-09-03] MEDS: OMEPRAZOLE 20 MG CAP PO SCH (08:57)
[2018-09-03] MEDS ORDERED: NICOTINE 7 MG/24 HR TRANSDERMAL TD SCH (09:00)
[2018-09-03] MEDS ORDERED: LevoFLOXacin IV 500 MG in APPROPRIATE DILUENT 1 EA IV SCH (09:00)
[2018-09-03] MEDS ORDERED: predniSONE 10 MG TAB PO SCH (09:00)
[2018-09-03] MEDS: ADVAIR HFA 230/21MCG INHALER INH SCH ×2 (09:00→20:00)
[2018-09-03 10:16] LABS: FERRITIN 13 NG/ML (8-252); IRON (FE) 25 UG/DL (50-170); PERCENT SATURATION 5.4 % (13.2-45.0); TOTAL IRON BINDING CAPACITY 461 UG/DL (250-450)
[2018-09-03] MEDS: FUROSEMIDE 40 MG TAB PO SCH (11:44)
--- NOTE | 2018-09-03 12:25 | IPN ---
DATE: 09/03/2018 Kenia was seen in the ICU. She is a patient of [facility], Dr. Jani Paul though she sees a unspecified mid-level provider typically. She has severe COPD which required hospitalizations for chronic respiratory failure with hypercapnia. She is followed by Dr. Noe in the pulmonary office. She feels about the same as when she got admitted. Her blood gas are improving her PCo2 has improved and her pH has normalized. Her respiratory panel came back showing rhinovirus /enterovirus as a probable etiology of her exacerbation. She is anemic. She has been anemic going back to January with a hemoglobin around 11. I do not have access to her primary care records. I do not know if this has been worked up or not. She had partial iron studies in January. She had a low normal ferritin at that time. PHYSICAL EXAMINATION: 127/59, pulse 100, respiratory rate 29, on pressure support. She is able to speak short sentences. Thick neck. Narrow airway. Lungs have expiratory wheezes and fairly tight bilaterally. Could not hear her heart sounds well. Abdomen soft, nontender and 1+ peripheral edema. LABS: Potassium 4.2, BUN 9, creatinine 0.4 glucose 147, troponin was negative, white count 5, hemoglobin 9.8, platelets 250, ABG 7.36/90/150. IMPRESSION: 1. Acute on chronic respiratory failure secondary to exacerbation of COPD from vital upper respiratory infection. PLAN: We will stop the Levaquin. It seems to be a vital etiology. She has a nebulized bronchodilator and new venous steroids on pressure support. Appreciate Dr. Montalvo's assistance of the patient while she is on pressure support. I have ordered labs for the morning. Expect her hospitalization to last at least 5-6 days. 2. Tobacco abuse. Smoking cessation discussed. She still smokes. 3. History of diastolic congestive heart failure per her past history, suspect this is also contributing. She has pretty significant edema. We will restart her furosemide. She does not have any ordered this morning. Hold Meloxicam. Would advise against restarting this upon discharge as it will blunt the effects of her diuretic. 4. Suspected neuropathy. He is on Gabapentin 300 mg three times a day and I do not have access to her office records. I am not sure what she is being for with this. She also takes Amitriptyline 75 mg at bedtime. We will continue this. 5. Tobacco abuse. Smoking cessation reviewed. 6. Hyperlipidemia. Continue atorvastatin 20 mg daily. 7. Vitamin B deficiency. Should restart her Drisdol 50,000 units weekly upon discharge
--- NOTE | 2018-09-03 12:55 | CCN ---
DATE: 09/03/2018 START TIME: 944 STOP TIME: 1021 I was asked to attend Kenia Hung here in the intensive care unit. She is on non-invasive support. She has advanced obstructive lung disease and is on chronic antibiotic she tells me and was in the midst of a prednisone taper. Unfortunately she is still smoking. She says that she is chronically shortness of breath but yesterday more so. Blood gas done at that time showed a pH of 7.220, PCO2 122.5 and a PO2 176. She was placed on non-invasive support per my suggestions changes were made. She remains dependant on non-invasive support this morning. She is however able to be conversant. She has had some cough with some sputum production at home but does not think she has had any fevers. Most recent laboratories show an arterial blood gas done on a biPAP 16/6 rate of 8 FiO2 of 40% and has a pH of 7.368, PcO2 of 90.2 and a P02 of 151.4. White blood cell count 5.0, hemoglobin 9.8, platelet count 253,000, 89% segmented neutrophils no bands. Sodium 136, potassium 4.4, chloride 89, CO2 44, BUN 12, creatinine 0.38, glucose 131. Chest x-rays show suboptimal respiratory effort. I can not rule out some infiltrate versus atelectasis versus crowding at the bases bilaterally. Medication list has been reviewed and does include IV steroids, aerosols and empiric antimicrobials of which it appears she only got one dose in the ER. On exam she is awake, alert, appropriate and follows commands. Noninvasive mask is in place. Pupils are reactive and sclera is clear. Jugular venous distension difficulty to assess with the mask in place. Chest shows diminished buy symmetric expansion. There is ventilated expiratory wheezing. There is some occasional rhonchi. No convincing rubs. No obvious egophony. Cardiac exam is distant but regular. Peripheral pulses palpable. Abdomen is obese, soft with active bowel sounds. No complaints of any nausea. Extremities without cyanosis, clubbing. Neurologic as outlined above and is grossly nonfocal. The most pressing problems requiring my presence at the bedside, acute on chronic respiratory failure, both hypoxemia and hypercapnic. Obstructive lung disease with exacerbation. Continued tobacco abuse. At this point we will increase her IV steroids and made some further changes in her noninvasive support due to wheezing. My hopes is that we can still give her a break off and on during the day so that she can take some oral fluids. We will continue her nebulizers. She received one dose of antimicrobials in the ER. She says that she was on chronic antibiotics of some sort at home but describes every other day and I wonder if this is azithromycin used as an antiinflammatory. We will attempt to obtain her outpatient records in that regard. I did review with her the need for smoking cessation. She says that she think she is going to try to quit again as she has multiple times in the past. We will make the changes outlined above. I left the bedside at 1022 hours. 37 minutes of critical care time was delivered at the bedside not including procedure.
[2018-09-03] MEDS: methylPREDNISolone INJ 125 MG/2 ML VIAL (J2930) IV SCH ×2 (16:08→23:33)
[2018-09-03] MEDS ORDERED: NICOTINE 21MG/24HR 1 EA TRANSDERMAL TD ONE (19:45)
[2018-09-03] MEDS: AMITRIPTYLINE 25 MG TAB PO SCH (20:01)
[2018-09-03] MEDS: MONTELUKAST 10 MG TAB PO SCH (20:02)
[2018-09-03] MEDS: ATORVASTATIN 20 MG TAB PO SCH (20:02)
[2018-09-04] VITALS (9 sets, daily range): BP systolic 116–141; BP diastolic 56–80
[2018-09-04 04:45] LABS: HEMATOCRIT 31.8 % (36.0-47.0); HEMOGLOBIN 9.6 g/dl (12.0-15.5); MEAN CORPUSCULAR HEMOGLOBIN 25.9 pg (27.0-33.0); MEAN CORPUSCULAR HGB CONC 30.2 g/dl (32.0-36.5); MEAN CORPUSCULAR VOLUME 85.9 fl (80.0-96.0); PLATELET COUNT, AUTOMATED 289 10^3/uL (150-450); WHITE BLOOD COUNT 7.9 10^3/uL (4.0-10.0)
[2018-09-04 05:01] LABS: BLOOD UREA NITROGEN 16 MG/DL (7-18); CREATININE FOR GFR 0.51 MG/DL (0.55-1.30); GLOMERULAR FILTRATION RATE > 60.0 (>51); GLUCOSE, FASTING 123 MG/DL (70-100); SODIUM LEVEL 136 MEQ/L (136-145)
[2018-09-04 05:02] LABS: CALCIUM LEVEL 9.2 MG/DL (8.5-10.1); CARBON DIOXIDE LEVEL 43 MEQ/L (21-32); CHLORIDE LEVEL 90 MEQ/L (98-107); POTASSIUM SERUM 4.4 MEQ/L (3.5-5.1); TOTAL PROTEIN 6.1 GM/DL (6.4-8.2)
[2018-09-04] MEDS: DOCUSATE SODIUM 100 MG CAP PO SCH ×2 (08:13→20:21)
[2018-09-04] MEDS: methylPREDNISolone INJ 125 MG/2 ML VIAL (J2930) IV SCH ×2 (08:14→15:47)
[2018-09-04] MEDS: FUROSEMIDE 40 MG TAB PO SCH (08:14)
[2018-09-04] MEDS: ASPIRIN 81 MG ENTERIC TAB PO SCH (08:14)
[2018-09-04] MEDS: OMEPRAZOLE 20 MG CAP PO SCH (08:14)
[2018-09-04] MEDS: NICOTINE 21MG/24HR 1 EA TRANSDERMAL TD SCH (08:15)
[2018-09-04] MEDS: GABAPENTIN 300 MG CAP PO PRN (08:22)
[2018-09-04] MEDS: ADVAIR HFA 230/21MCG INHALER INH SCH ×2 (09:08→20:16)
[2018-09-04] MEDS: IPRATROPIUM 0.5MG/ALBUTEROL 2.5MG INH SOL UD 3ML (DUONEB)(J7620) NEB PRN ×2 (09:19→14:36)
[2018-09-04] MEDS: guaiFENesin ER 600 MG TAB PO SCH ×2 (11:58→20:20)
[2018-09-04] MEDS: LevoFLOXacin 500 MG TABLET PO SCH (11:58)
--- NOTE | 2018-09-04 14:34 | IPNPDOC ---
Date Seen The patient was seen on 09/04/18. Progress Note SUBJECTIVE: Patient seen and examined at bedside, off BIPAP on 4 L NC saturating well, speaking comfortably, On Levaquin day 1 for COPD ex 2/2 URI in setting of advanced COPD OBJECTIVE PHYSICAL EXAMINATION: VITAL SIGNS: Please see below. GENERAL: well nourished, in no acute distress HEENT: normocephalic, atraumatic, EOMI CARDIOVASCULAR: tachycardic, normal s1 and s2 no MGR RESPIRATORY: diminshed, faint expiratory wheezing ABDOMINAL: soft, non tender, non distended, + BS EXTREMITIES: 1+ edema, no calf tenderness NEUROLOGICAL: A&OX3, no focal deficits PSYCHOLOGICAL: normal mood LABORATORY DATA, IMAGING STUDIES, MICROBIOLOGY: Please see below. DVT prophylaxis ordered?: SCD ASSESSMENT AND PLAN: This is a -year-old [RACE] [GENDER] with . PROBLEMS: 1. Acute on chronic hypercapnic/ Hypoxemic respiratory failure 2/2 COPD ex due to URI in setting of advanced COPD: continue duoneb standing, spiriva on hold with standing nebs, continue symbicort , oxygen 4 L during day, BIPAP at night. On Levaquin ( fulfills [facility] criteria for antibiotics despite having virus on sputum) ? whether pt is on chronic macrolide therapy. pulmonary input appreciated 2. diastolic CHF: acute on chronic: diuresing well on lasix 40 mg PO daily, strict I:O , daily weights, elevate head of bed 3. neuropathy/ HPL: continue home meds VS, I&O, 24H, Fishbone Vital Signs/I&O Vital Signs Date Time Temp Pulse Resp B/P (MAP) Pulse Ox O2 Delivery O2 Flow Rate FiO2 09/04/18 12:00 4.0 09/04/18 12:00 97.9 129 24 135/80 (98) 94 Nasal Cannula 09/04/18 06:11 35 I&O- Last 24 Hours up to 6 AM 09/04/18 06:00 Intake Total 770 ml Output Total 3150 ml Balance -2380 ml Laboratory Data 24H LABS Laboratory Tests 2 09/04/18 04:11: Nucleated Red Blood Cells % (auto) 0.0, Anion Gap 3L, Glomerular Filtration Rate > 60.0, Blood Urea Nitrogen 16, Creatinine 0.51L, Sodium Level 136, Potassium Level 4.4, Chloride Level 90L, Carbon Dioxide Level 43H, Calcium Level 9.2, Total Protein (PEP) 6.1L CBC/BMP Laboratory Tests 09/04/18 04:11 Red Blood Count 3.70 L, Mean Corpuscular Volume 85.9, Mean Corpuscular Hemog lobin 25.9 L, Mean Corpuscular Hemoglobin Concent 30.2 L, Red Cell Distribution Width 12.5, Calcium Level 9.2 Microbiology Microbiology 09/02/18 Blood Culture - Preliminary, Resulted No growth after 24 hours . All specim... 09/02/18 Blood Culture - Preliminary, Resulted No growth after 24 hours . All specim... 09/02/18 Respiratory Virus Panel (PCR) ([facility]) - Final, Complete Human Rhinovirus/Enterovirus WEDNESDAY,MAR TITUS Sep 04, 2018 14:34
[2018-09-04] MEDS: ATORVASTATIN 20 MG TAB PO SCH (20:20)
[2018-09-04] MEDS: MONTELUKAST 10 MG TAB PO SCH (20:21)
[2018-09-04] MEDS: AMITRIPTYLINE 25 MG TAB PO SCH (20:21)
[2018-09-05] MEDS: methylPREDNISolone INJ 125 MG/2 ML VIAL (J2930) IV SCH ×2 (00:13→08:41)
[2018-09-05 04:00] VITALS: BP 141/69
[2018-09-05 04:30] LABS: HEMOGLOBIN 10.2 g/dl (12.0-15.5); MEAN CORPUSCULAR HEMOGLOBIN 26.2 pg (27.0-33.0); MEAN CORPUSCULAR VOLUME 87.4 fl (80.0-96.0); PLATELET COUNT, AUTOMATED 297 10^3/uL (150-450); RED BLOOD COUNT 3.89 10^6/uL (4.00-5.40); WHITE BLOOD COUNT 8.2 10^3/uL (4.0-10.0)
[2018-09-05 04:56] LABS: BLOOD UREA NITROGEN 24 MG/DL (7-18); CALCIUM LEVEL 9.2 MG/DL (8.5-10.1); CARBON DIOXIDE LEVEL 45 MEQ/L (21-32); CHLORIDE LEVEL 92 MEQ/L (98-107); CREATININE FOR GFR 0.62 MG/DL (0.55-1.30); GLOMERULAR FILTRATION RATE > 60.0 (>51); GLUCOSE, FASTING 140 MG/DL (70-100); SODIUM LEVEL 140 MEQ/L (136-145)
[2018-09-05 06:05] LABS: ABG HCO3 43.8 MEQ/L (22.0-26.0); ABG O2 SATURATION 94.7 % (95.0-99.0); ABG PARTIAL PRESSURE O2 77.7 mmHg (75.0-100.0); ABG STANDARD HCO3 39.9 MEQ/L (22.0-26.0); ABG pH (ARTERIAL) 7.402 UNITS (7.350-7.450)
[2018-09-05] MEDS: LevoFLOXacin 500 MG TABLET PO SCH (06:12)
[2018-09-05] MEDS: ADVAIR HFA 230/21MCG INHALER INH SCH ×2 (08:00→20:00)
[2018-09-05] MEDS: IPRATROPIUM 0.5MG/ALBUTEROL 2.5MG INH SOL UD 3ML (DUONEB)(J7620) NEB PRN ×2 (08:01→12:29)
[2018-09-05 08:25] VITALS: BP 126/60
[2018-09-05] MEDS: ASPIRIN 81 MG ENTERIC TAB PO SCH (08:42)
[2018-09-05] MEDS: NICOTINE 21MG/24HR 1 EA TRANSDERMAL TD SCH (08:42)
[2018-09-05] MEDS: OMEPRAZOLE 20 MG CAP PO SCH (08:42)
[2018-09-05] MEDS: DOCUSATE SODIUM 100 MG CAP PO SCH ×2 (08:43→21:06)
[2018-09-05] MEDS: guaiFENesin ER 600 MG TAB PO SCH ×2 (08:43→21:07)
[2018-09-05] MEDS: FUROSEMIDE 40 MG TAB PO SCH (08:43)
[2018-09-05 12:00] VITALS: BP 124/61
[2018-09-05 12:16] LABS: FOLATE 10.9 NG/ML (>5.4); VITAMIN B12 LEVEL 347 PG/ML (247-911)
--- NOTE | 2018-09-05 14:39 | IPNPDOC ---
Date Seen The patient was seen on 09/05/18. Progress Note SUBJECTIVE: Patient seen and examined at bedside, in no acute, on day 2 of levaquin for COPD ex. has been off BIPAP for last 24 hrs saturating well on NC. no acute complaints GENERAL: well nourished, in no acute distress HEENT: normocephalic, atraumatic, EOMI CARDIOVASCULAR: tachycardic, normal s1 and s2 no MGR RESPIRATORY: diminshed, faint expiratory wheezing ABDOMINAL: soft, non tender, non distended, + BS EXTREMITIES: 1+ edema, no calf tenderness NEUROLOGICAL: A&OX3, no focal deficits PSYCHOLOGICAL: normal mood LABORATORY DATA, IMAGING STUDIES, MICROBIOLOGY: Please see below. DVT prophylaxis ordered?: SCD ASSESSMENT AND PLAN: This is a -year-old [RACE] [GENDER] with . PROBLEMS: 1. Acute on chronic hypercapnic/ Hypoxemic respiratory failure 2/2 COPD ex due to URI in setting of advanced COPD: continue duoneb standing, spiriva on hold with standing nebs, continue symbicort , oxygen 4 L during day, BIPAP at night. On Levaquin ( fulfills [facility] criteria for antibiotics despite having virus on sputum) ? whether pt is on chronic macrolide therapy. pulmonary input appre ciated . resp cx: rhinovirus/enterovirus 2. diastolic CHF: acute on chronic: diuresing well on lasix 40 mg PO daily, strict I:O , daily weights, elevate head of bed 3. neuropathy/ HPL: continue home meds DISPOSITION: transfer to med surg today. can begin to initiate d/c process in the next 24 hrs VS, I&O, 24H, Fishbone Vital Signs/I&O Vital Signs Date Time Temp Pulse Resp B/P (MAP) Pulse Ox O2 Delivery O2 Flow Rate FiO2 09/05/18 12:30 113 09/05/18 12:00 97.9 22 124/61 (82) 99 Nasal Cannula 3.0 09/04/18 06:11 35 I&O- Last 24 Hours up to 6 AM 09/05/18 06:00 Intake Total 960 ml Output Total 2825 ml Balance -1865 ml Laboratory Data 24H LABS Laboratory Tests 2 09/05/18 04:08: Nucleated Red Blood Cells % (auto) 0.0, Anion Gap 3L, Glomerular Filtration Rate > 60.0, Blood Urea Nitrogen 24H, Creatinine 0.62, Sodium Level 140, Potassium Level 4.0, Chloride Level 92L, Carbon Dioxide Level 45H, Calcium Level 9.2 09/05/18 05:35: Blood Gas Bicarbonate Standard 39.9H, Arterial Blood pH 7.402, Arterial Blood Partial Pressure CO2 72.0*H, Arterial Blood Partial Pressure O2 77.7, Arterial Blood Total CO2 46.0H, Arterial Blood HCO3 43.8H, Arterial Blood Base Excess 16.0H, Arterial Blood Oxygen Saturation 94.7L CBC/BMP Laboratory Tests 09/05/18 04:08 Red Blood Count 3.89 L, Mean Corpuscular Volume 87.4, Mean Corpuscular Hemoglobin 26.2 L, Mean Corpuscular Hemoglobin Concent 30.0 L, Red Cell Distribution Width 12.5, Calcium Level 9.2 Microbiology Microbiology 09/02/18 Blood Culture - Preliminary, Resulted No Growth after 48 hours. All Specime... 09/02/18 Blood Culture - Preliminary, Resulted No Growth after 48 hours. All Specime... 09/02/18 Respiratory Virus Panel (PCR) ([facility]) - Final, Complete Human Rhinovirus/Enterovirus WEDNESDAY,MAR TITUS Sep 05, 2018 14:39
[2018-09-05 16:00] VITALS: BP 148/98
[2018-09-05] MEDS: methylPREDNISolone INJ 40 MG/1 ML VIAL (J2920) IV SCH (16:49)
[2018-09-05 20:00] VITALS: BP 150/80
[2018-09-05] MEDS: AMITRIPTYLINE 25 MG TAB PO SCH (21:07)
[2018-09-05] MEDS: ATORVASTATIN 20 MG TAB PO SCH (21:07)
[2018-09-05] MEDS: MONTELUKAST 10 MG TAB PO SCH (21:08)
[2018-09-06] MEDS: methylPREDNISolone INJ 40 MG/1 ML VIAL (J2920) IV SCH ×2 (00:37→08:49)
[2018-09-06 04:00] VITALS: BP 136/74
[2018-09-06] MEDS: LevoFLOXacin 500 MG TABLET PO SCH (05:54)
[2018-09-06 07:13] LABS: HEMATOCRIT 33.4 % (36.0-47.0); MEAN CORPUSCULAR HEMOGLOBIN 25.8 pg (27.0-33.0); MEAN CORPUSCULAR HGB CONC 29.9 g/dl (32.0-36.5); MEAN CORPUSCULAR VOLUME 86.1 fl (80.0-96.0); PLATELET COUNT, AUTOMATED 285 10^3/uL (150-450); RED BLOOD COUNT 3.88 10^6/uL (4.00-5.40); WHITE BLOOD COUNT 9.1 10^3/uL (4.0-10.0)
[2018-09-06 07:16] LABS: BLOOD UREA NITROGEN 19 MG/DL (7-18); CALCIUM LEVEL 8.8 MG/DL (8.5-10.1); CARBON DIOXIDE LEVEL 44 MEQ/L (21-32); CHLORIDE LEVEL 91 MEQ/L (98-107); CREATININE FOR GFR 0.56 MG/DL (0.55-1.30); GLOMERULAR FILTRATION RATE > 60.0 (>51); GLUCOSE, FASTING 134 MG/DL (70-100); POTASSIUM SERUM 3.9 MEQ/L (3.5-5.1); SODIUM LEVEL 138 MEQ/L (136-145)
[2018-09-06] MEDS: ADVAIR HFA 230/21MCG INHALER INH SCH ×2 (07:51→20:00)
[2018-09-06] MEDS: guaiFENesin ER 600 MG TAB PO SCH ×2 (08:48→20:43)
[2018-09-06] MEDS: ASPIRIN 81 MG ENTERIC TAB PO SCH (08:48)
[2018-09-06] MEDS: DOCUSATE SODIUM 100 MG CAP PO SCH ×2 (08:48→20:45)
[2018-09-06] MEDS: FUROSEMIDE 40 MG TAB PO SCH (08:49)
[2018-09-06] MEDS: NICOTINE 21MG/24HR 1 EA TRANSDERMAL TD SCH (08:49)
[2018-09-06] MEDS: OMEPRAZOLE 20 MG CAP PO SCH (08:49)
[2018-09-06] MEDS: GABAPENTIN 300 MG CAP PO PRN (09:02)
[2018-09-06] MEDS: HEPARIN SOD (PORCINE) 5000 UNITS/ML VIAL SQ SCH ×2 (10:11→20:44)
[2018-09-06] MEDS: MELOXICAM (MOBIC) 7.5 MG TAB PO SCH (10:11)
[2018-09-06 12:00] VITALS: BP 140/78
[2018-09-06] MEDS: predniSONE 20 MG TAB PO SCH (20:43)
[2018-09-06] MEDS: ATORVASTATIN 20 MG TAB PO SCH (20:44)
[2018-09-06] MEDS: AMITRIPTYLINE 25 MG TAB PO SCH (20:44)
[2018-09-06] MEDS: MONTELUKAST 10 MG TAB PO SCH (20:44)
[2018-09-06 22:00] VITALS: BP 145/84
--- NOTE | 2018-09-07 01:39 | IPN ---
DATE OF SERVICE: 09/02/2018 Patient seen and examined. Reported respirations much improved. Currently on baseline 4 liter oxygen with mild dyspnea. Denies any chest pain, pressure or discomfort. VITAL SIGNS: Temperature 96.7, pulse 112, respirations 21, blood pressure 140/78, pulse oximetry 96% on 4 liters oxygen. LABORATORY: White blood cell (WBC) 9.1, hemoglobin and hematocrit (H and H) 10/33.4, platelets 285. Chemistry: Sodium 138, potassium 3.9, chloride 91, bicarbonate 44, BUN 19, creatinine 0.56. PHYSICAL EXAMINATION: GENERAL: The patient is obese, alert, in mild dyspnea. HEENT: Normocephalic, atraumatic. PULMONARY: Mild expiratory wheeze. Diminished breath sounds bilaterally. CARDIAC: Mild tachycardia. S1, S2. ABDOMEN: Soft, nontender. EXTREMITIES: 1+ edema of bilateral lower extremities. NEUROLOGIC: The patient seems to be anxious. ASSESSMENT AND PLAN: This is a 57-year-old female patient with underlying medical history of chronic hypoxic and chronic hypercarbic respiratory failure on 4 liters oxygen at home with chronic obstructive pulmonary disease (COPD) endstage, dyslipidemia, morbid obesity, steroid dependent, pulmonary artery hypertension, chronic smoker, gastroesophageal reflux disease (GERD), dyslipidemia admitted for acute on chronic hypoxic hypercarbic respiratory failure secondary to acute COPD exacerbation. 1. Acute on chronic hypercarbic hypoxic respiratory failure secondary to COPD exacerbation due to human rhinovirus in the setting of endstage COPD continue Spiriva, Advair, taper steroids to prednisone, smoking cessation, nicotine patch, continue Singulair, Levaquin, poor long-term prognosis. Patient currently off of bilevel positive airway pressure (BiPAP), back to baseline oxygen requirement. Patient on chronic suppressive azithromycin as outpatient. Pulmonology input appreciated. 2. Diastolic congestive heart failure acute on chronic. Diuresing well with Lasix, strict input/output (Is and Os), continue to follow. 3. Dyslipidemia. Outpatient followup. Continue statin and aspirin. 4. Morbid obesity complicating care. 5. Smoker. Nicotine patch. 6. Gastroesophageal reflux disease (GERD). Continue current medication. 7. Depression. Continue current medications. Deep vein thrombosis (DVT) prophylaxis. Heparin subcutaneously. DISPOSITION: Pending clinical improvement. Patient passed physical therapy likely discharge in the next 24 hours.
[2018-09-07] MEDS: LevoFLOXacin 500 MG TABLET PO SCH (05:54)
[2018-09-07 06:00] VITALS: BP 162/81
[2018-09-07 06:28] LABS: HEMATOCRIT 33.8 % (36.0-47.0); HEMOGLOBIN 10.2 g/dl (12.0-15.5); MEAN CORPUSCULAR HGB CONC 30.2 g/dl (32.0-36.5); PLATELET COUNT, AUTOMATED 262 10^3/uL (150-450); RED BLOOD COUNT 3.93 10^6/uL (4.00-5.40); WHITE BLOOD COUNT 8.4 10^3/uL (4.0-10.0)
[2018-09-07 06:58] LABS: BLOOD UREA NITROGEN 20 MG/DL (7-18); CALCIUM LEVEL 8.7 MG/DL (8.5-10.1); CARBON DIOXIDE LEVEL 42 MEQ/L (21-32); CHLORIDE LEVEL 92 MEQ/L (98-107); CREATININE FOR GFR 0.55 MG/DL (0.55-1.30); GLOMERULAR FILTRATION RATE > 60.0 (>51); GLUCOSE, FASTING 145 MG/DL (70-100); POTASSIUM SERUM 3.9 MEQ/L (3.5-5.1); SODIUM LEVEL 137 MEQ/L (136-145)
[2018-09-07] MEDS ORDERED: TIOTROPIUM INHALER/CAPSULE (SPIRIVA) INH SCH (08:00)
[2018-09-07] MEDS: OMEPRAZOLE 20 MG CAP PO SCH (08:50)
[2018-09-07] MEDS: guaiFENesin ER 600 MG TAB PO SCH (08:50)
[2018-09-07] MEDS: DOCUSATE SODIUM 100 MG CAP PO SCH (08:50)
[2018-09-07] MEDS: MELOXICAM (MOBIC) 7.5 MG TAB PO SCH (08:50)
[2018-09-07] MEDS: predniSONE 20 MG TAB PO SCH (08:50)
[2018-09-07] MEDS: ASPIRIN 81 MG ENTERIC TAB PO SCH (08:50)
[2018-09-07] MEDS: FUROSEMIDE 40 MG TAB PO SCH (08:50)
[2018-09-07] MEDS: HEPARIN SOD (PORCINE) 5000 UNITS/ML VIAL SQ SCH (08:51)
[2018-09-07] MEDS: ADVAIR HFA 230/21MCG INHALER INH SCH (08:51)
[2018-09-07] MEDS: NICOTINE 21MG/24HR 1 EA TRANSDERMAL TD SCH (08:52)
[2018-09-07] MEDS ORDERED: PRED10TA2 PO (10:50)
[2018-09-07] MEDS ORDERED: LEVA1TAB2 PO (10:50)
[2018-09-07] MEDS: GABAPENTIN 300 MG CAP PO PRN (11:19)
--- NOTE | 2018-09-07 16:15 | DSES ---
DATE OF ADMISSION: 09/02/2018 DATE OF DISCHARGE: 09/07/2018 FINAL DIAGNOSIS: Acute on chronic hypercarbic hypoxic respiratory failure secondary to COPD secondary to human rhinovirus and end-stage COPD, diastolic congestive heart failure, acute on chronic, dyslipidemia, morbid obesity, smoker, GERD, depression. HISTORY OF PRESENT ILLNESS: This is a 57-year-old female patient with underlying medical history of oxygen dependant end-stage COPD requiring 4 liters of oxygen at home, morbid obesity, dyslipidemia, steroid dependence who presented to the emergency room with increasing shortness of breath over the past 2 weeks only relieved by inhalers also reported a cough productive of yellow sputum. No subjective fevers, aches, or chills. Patient has a history of intubation due to COPD exacerbation. In the past in the emergency room patient received Solu-Medrol nebulizer treatment. ABG was found to have hypercarbic respiratory failure. Patient was started on BiPAP. Repeat ABG shows improvement of hypercarbia. Subsequently patient was admitted to intensive care unit. HOSPITAL COURSE: Patient was admitted to ICU and given steroids initially and placed on antibiotics. Pulmonology was consulted. Patient was waned off of bipap. Respiratory panel shows human rhinovirus. Patient's condition gradually improved. Subsequently patient went to medical surgical floor. Smoking cessation counseling provided. Physical therapy has been ordered. Steroids were tapered. Patient was also diuresed with Lasix. Currently patient is back to baseline Oxygen requirement. Comfortable and ready to discharged for further care as outpatient. VITAL SIGNS: Temperature 97.5, pulse 100, respirations 18, blood pressure 162/81, pulse ox 100% on 2 liters. LABORATORY: WBC 8.4, hemoglobin and hematocrit 10.2 over 33.8, platelets 262. Chemistry: Sodium 137, potassium 3.9, chloride 92, bicarbonate 42, BUN 20, creatinine 0.55. GENERAL: Patient morbidly obese, comfortable in no acute distress. HEENT: Normocephalic atraumatic. PULMONARY: Minimal expiratory wheeze. Diminished breath sounds bilateral. CARDIAC: Regular S1, S2. ABDOMEN: Soft and nontender. EXTREMITIES: 1+ edema bilateral lower extremities. DISCHARGE MEDICATIONS: Levaquin 500 mg by mouth daily for 5 more days and start azithromycin after Levaquin. Patient on chronic suppressive azithromycin. Prednisone taper and to resume prednisone 10 mg by mouth daily after taper. Continue Ventolin inhalers four times a day as needed. Duonebs inhalation four times a day as needed, amitriptyline 75 mg by mouth at bedtime. Aspirin 81 mg by mouth daily, Lipitor 20 mg by mouth at bedtime. Colace 100 mg by mouth twice a day, Lasix 40 mg by mouth daily, gabapentin 300 mg by mouth three times a day as needed. Meloxicam 15 mg by mouth daily, Singular 10 mg by mouth at bedtime, nicotine patch 7 mg transdermal daily, omeprazole 40 mg by mouth daily, Advair 1 inhalation twice a day, Spiriva inhalation daily, vitamin D 50,000 units by mouth weekly, discharge instructions. DISCHARGE INSTRUCTIONS: Recommend weight loss. Oxygen supplementation, Oxygen saturation goal of 90-94%. Avoid over oxygenation. Please see primary care provider in 7 days. Please see ship construction teacher Dr. Noe in 14 days. Resume Azithromycin after Levaquin complete, resume prednisone 10 mg by mouth daily after prednisone taper, adjustment of steroids per ship construction teacher return to hospital if symptoms worse. Smoking cessation.
[2018-09-08 00:06] LABS: FREE KAPPA LIGHT CHAINS SERUM 6.4 mg/L (3.3-19.4); FREE LAMBDA LIGHT CHAINS SERUM 10.4 mg/L (5.7-26.3); KAPPA/LAMBDA RATIO SERUM 0.62 (0.26-1.65)
[2018-09-08 13:19] LABS: ALBUMIN 3.45 GM/DL (3.29-5.55); ALBUMIN % 56.6 % (55.8-66.1); ALPHA-1-GLOBULIN % 6.2 % (2.9-4.9); ALPHA-1-GLOBULINS 0.38 GM/DL (0.17-0.41); ALPHA-2-GLOBULINS 0.82 GM/DL (0.42-0.99); ALPHA-2-GLOBULINS % 13.4 % (7.1-11.8); BETA-1-GLOBULINS 0.53 GM/DL (0.28-0.60); BETA-1-GLOBULINS % 8.7 % (4.7-7.2); BETA-2-GLOBULINS 0.31 GM/DL (0.19-0.55)
[2018-09-08 13:20] LABS: BETA-2-GLOBULINS % 5.1 % (3.2-6.5); GAMMA GLOBULINS 0.61 GM/DL (0.65-1.58)
== END 2018-09-07 13:39 | disposition home health service (06) | DRG 133 ==
LOC: M ED 14:38 → M ED INP 18:41 → M ICU 20:40 → M MS4PR 09-05 15:42
PROVIDERS: ADMIT Internal Medicine; ATTEND Hospitalist
DX: J96.22 Acute and chronic respiratory failure with hypercapnia (principal); I50.33 Acute on chronic diastolic (congestive) heart failure; Z99.81 Dependence on supplemental oxygen; J44.0 Chronic obstructive pulmonary disease with (acute) lower respiratory infection; E66.01 Morbid (severe) obesity due to excess calories; G62.9 Polyneuropathy, unspecified; J44.1 Chronic obstructive pulmonary disease with (acute) exacerbation; B97.89 Other viral agents as the cause of diseases classified elsewhere; K21.9 Gastro-esophageal reflux disease without esophagitis; E78.5 Hyperlipidemia, unspecified; F17.200 Nicotine dependence, unspecified, uncomplicated; F32.9 Major depressive disorder, single episode, unspecified; Z79.52 Long term (current) use of systemic steroids; Z79.899 Other long term (current) drug therapy; Z79.82 Long term (current) use of aspirin; J96.21 Acute and chronic respiratory failure with hypoxia

== ENCOUNTER → 2018-10-10 | Outpatient (REF) | payer OTHER ==
[~2018-10-10] MED LIST changes: +DOCU100C16 PO; +FURO40TA2 PO; -LASI40TA PO; +LASI40TA9 PO; +LEVA1TAB2 PO; +NICO7DIS27 TD; +OMEP40CA2 PO
== END ==
LOC: M LAB REF 17:21
PROVIDERS: ATTEND Internal Medicine Pulmonary Disease
DX: J44.9 Chronic obstructive pulmonary disease, unspecified (principal); R05 Cough

== ENCOUNTER 2018-12-28 18:09 | Inpatient (IN) | payer OTHER ==
[~2018-12-28] VITALS: Ht 160 cm; Wt 102.8 kg
[~2018-12-28 18:09] MED LIST changes: -/ADVA50050; -/ESOM40CA PO; -/MOXI40TA; -/TIOT18INH INH; +ADVA1AER2; -ASPI1TAB PO; +ASPI81TA26 PO; +AVEL1TAB2; +CYMB1CAP4 PO; -DULO20CA PO; +NEXI1CAP3 PO; +NICO21DI3 TD; -NICO21PAT TD; -NICO7DIS27 TD; +NICO7DIS5 TD; +PRED-351 PO; -PRED10TA PO; +VENL-65 PO; -VENL75TA3 PO
[2018-12-28] MEDS ORDERED: IPRATROPIUM 0.5MG/ALBUTEROL 2.5MG INH SOL UD 3ML (DUONEB)(J7620) As Ordered ONE (18:25)
[2018-12-28] MEDS ORDERED: ALBUTEROL SULFATE 2.5 MG/0.5 ML INH NEB SOLN As Ordered ONE (18:25)
[2018-12-28] MEDS ORDERED: IPRATROPIUM 0.5MG/ALBUTEROL 2.5MG INH SOL UD 3ML (DUONEB)(J7620) NEB ONE (18:30)
[2018-12-28] MEDS ORDERED: ALBUTEROL SULFATE 2.5 MG/0.5 ML INH NEB SOLN INH ONE (18:30)
[2018-12-28] MEDS ORDERED: methylPREDNISolone INJ 125 MG/2 ML VIAL (J2930) IV ONE (18:45)
[2018-12-28 18:48] LABS: ABG BASE EXCESS 21.1 (-2.0-2.0); ABG HCO3 53.5 MEQ/L (22.0-26.0); ABG O2 SATURATION 99.5 % (95.0-99.0); ABG PARTIAL PRESSURE O2 284.8 mmHg (75.0-100.0); ABG STANDARD HCO3 45.5 MEQ/L (22.0-26.0); ABG TOTAL CO2 57.3 MEQ/L (22.0-29.0)
[2018-12-28 18:49] LABS: ABG pH (ARTERIAL) 7.247 UNITS (7.350-7.450)
[2018-12-28 18:50] LABS: ABG PARTIAL PRESSURE CO2 125.6 mmHg (35.0-45.0)
--- NOTE | 2018-12-28 19:15 | REP ---
Chest one-view HISTORY: Cough Comparison: 09/02/2018 The lungs are clear. The heart is normal in size. The pulmonary vasculature is normal in appearance. The proximal one half of the right clavicle is absent. Impression: No acute disease. Electronically Signed by Frandy Bran MD 12/28/2018 07:06 P
[2018-12-28 19:38] LABS: INFLUENZA A AMPLIFICATION NEGATIVE (NEGATIVE); INFLUENZA B AMPLIFICATION NEGATIVE (NEGATIVE)
[2018-12-28 19:55] LABS: ALBUMIN 3.7 GM/DL (3.2-5.2); ALT/SGPT 23 U/L (12-78); BILIRUBIN,DIRECT < 0.1 MG/DL (0.0-0.2); BILIRUBIN,TOTAL 0.1 MG/DL (0.2-1.0); BLOOD UREA NITROGEN 13 MG/DL (7-18); CALCIUM LEVEL 8.9 MG/DL (8.5-10.1); CARBON DIOXIDE LEVEL 50 MEQ/L (21-32); CHLORIDE LEVEL 87 MEQ/L (98-107); CPK CREATINE PHOSPHOKINASE 101 U/L (26-192); CREATININE FOR GFR 0.56 MG/DL (0.55-1.30); GLOMERULAR FILTRATION RATE > 60.0 (>51); GLUCOSE, FASTING 155 MG/DL (70-100); MB/CK RELATIVE INDEX 4.06 (< OR =4); NT-PRO BNP 195 PG/ML (<125); POTASSIUM SERUM 4.1 MEQ/L (3.5-5.1); SODIUM LEVEL 136 MEQ/L (136-145); THYROID STIMULATING HORMONE 0.587 uIU/ML (0.358-3.740); TOTAL PROTEIN 6.8 GM/DL (6.4-8.2); TROPONIN I < 0.02 NG/ML (< 0.10)
[2018-12-28] MEDS ORDERED: LevoFLOXacin IV 750 MG in APPROPRIATE DILUENT 1 EA IV ONE (20:00)
[2018-12-28 20:39] LABS: BASO % 0.1 % (0.0-1.0); HEMATOCRIT 34.6 % (36.0-47.0); HEMOGLOBIN 9.9 g/dl (12.0-15.5); LYMPH # 0.4 10^3/uL (1.5-4.5); LYMPH % 3.6 % (24.0-44.0); MEAN CORPUSCULAR HEMOGLOBIN 26.1 pg (27.0-33.0); MEAN CORPUSCULAR HGB CONC 28.6 g/dl (32.0-36.5); MEAN CORPUSCULAR VOLUME 91.1 fl (80.0-96.0); MONO # 0.3 10^3/uL (0.0-0.8); MONO % 3.3 % (0.0-5.0); NEUTROPHILS # 9.2 10^3/uL (1.8-7.7); NEUTROPHILS % 92.6 % (36.0-66.0); PLATELET COUNT, AUTOMATED 277 10^3/uL (150-450)
[2018-12-28 20:43] LABS: ABG HCO3 51.7 MEQ/L (22.0-26.0); ABG O2 SATURATION 96.9 % (95.0-99.0); ABG PARTIAL PRESSURE O2 93.6 mmHg (75.0-100.0); ABG STANDARD HCO3 45.3 MEQ/L (22.0-26.0); ABG pH (ARTERIAL) 7.308 UNITS (7.350-7.450)
[2018-12-28 20:44] LABS: ABG PARTIAL PRESSURE CO2 105.6 mmHg (35.0-45.0)
[2018-12-28] MEDS ORDERED: guaiFENesin SYRUP 200 MG/10 ML UDC PO PRN (21:15)
[2018-12-28] MEDS ORDERED: AZIT500T2 PO (22:17)
[2018-12-28] MEDS ORDERED: PRED20TA PO (22:17)
--- NOTE | 2018-12-28 22:24 | ECGEPIP ---
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
[2018-12-28] MEDS ORDERED: ALBUTEROL SULFATE 2.5 MG/0.5 ML INH NEB SOLN NEB PRN (23:15)
[2018-12-29 00:35] VITALS: BP 130/68
[2018-12-29] MEDS: IPRATROPIUM 0.5MG/ALBUTEROL 2.5MG INH SOL UD 3ML (DUONEB)(J7620) NEB SCH ×4 (00:42→13:40)
[2018-12-29] MEDS ORDERED: IPRATROPIUM 0.5MG/ALBUTEROL 2.5MG INH SOL UD 3ML (DUONEB)(J7620) NEB SCH (02:00)
[2018-12-29] MEDS: methylPREDNISolone INJ 125 MG/2 ML VIAL (J2930) IV SCH ×2 (03:46→10:13)
[2018-12-29 04:00] VITALS: BP 127/62
[2018-12-29 06:12] LABS: ABG BASE EXCESS 12.9 (-2.0-2.0); ABG HCO3 40.1 MEQ/L (22.0-26.0); ABG O2 SATURATION 91.4 % (95.0-99.0); ABG STANDARD HCO3 36.5 MEQ/L (22.0-26.0); ABG TOTAL CO2 42.1 MEQ/L (22.0-29.0)
[2018-12-29 06:15] LABS: ABG PARTIAL PRESSURE CO2 67.7 mmHg (35.0-45.0)
[2018-12-29 06:22] LABS: ALT/SGPT 18 U/L (12-78); BLOOD UREA NITROGEN 16 MG/DL (7-18); CALCIUM LEVEL 8.8 MG/DL (8.5-10.1); CARBON DIOXIDE LEVEL 47 MEQ/L (21-32); CHLORIDE LEVEL 85 MEQ/L (98-107); CREATININE FOR GFR 0.46 MG/DL (0.55-1.30); GLOMERULAR FILTRATION RATE > 60.0 (>51); GLUCOSE, FASTING 113 MG/DL (70-100); POTASSIUM SERUM 3.6 MEQ/L (3.5-5.1); SODIUM LEVEL 133 MEQ/L (136-145)
[2018-12-29 06:23] LABS: TOTAL PROTEIN 6.2 GM/DL (6.4-8.2)
[2018-12-29 06:24] LABS: BILIRUBIN,TOTAL 0.3 MG/DL (0.2-1.0)
[2018-12-29] MEDS: HEPARIN SOD (PORCINE) 5000 UNITS/ML VIAL SC SCH ×3 (06:32→20:07)
[2018-12-29] MEDS: ACETAMINOPHEN TAB 650MG DOSE (2X325MG) PO PRN (06:33)
[2018-12-29 08:00] VITALS: BP 126/80
--- NOTE | 2018-12-29 08:54 | REP ---
Right knee series: Four views. History: Pain after fall. Findings: Four views of the right knee are presented. The no sunrise view is included. There is some diffuse osteopenia. No fracture or subluxation is seen. No evidence of joint effusion. Impression: Mild diffuse osteopenia. No fracture seen. Electronically Signed by Corona Melendez MD 12/29/2018 08:45 A
--- NOTE | 2018-12-29 08:54 | REP ---
Right tib-fib series: Three views. History: Pain after a fall. Findings: There is mild diffuse soft tissue edema. No tibial or fibular fracture is seen. No subluxation noted. Impression: No fracture or other acute bony abnormality. Electronically Signed by Corona Melendez MD 12/29/2018 08:45 A
[2018-12-29 11:07] LABS: HEMATOCRIT 31.5 % (36.0-47.0); HEMOGLOBIN 9.4 g/dl (12.0-15.5); MEAN CORPUSCULAR HGB CONC 29.8 g/dl (32.0-36.5); PLATELET COUNT, AUTOMATED 268 10^3/uL (150-450); RED BLOOD COUNT 3.62 10^6/uL (4.00-5.40)
[2018-12-29 12:00] VITALS: BP 136/66
--- NOTE | 2018-12-29 14:59 | HPE ---
DATE OF ADMISSION: 12/28/2018 HISTORY OF PRESENT ILLNESS: 58-year-old female with chronic hypoxic and hypercapnic respiratory failure secondary to chronic obstructive pulmonary disease (COPD) who came to the emergency department for complaints of worsening shortness of breath for the past few days. In the emergency room, the patient was found in mild respiratory distress and immediately placed on BiPAP. She was found with vitals of temperature 98.1, blood pressure 159/67, heart rate 123, respiratory rate 28, saturating 92% on supplemental oxygen. Chest x-ray did not show any acute pathology. ABG was pH 7.247, pCO2 125.6. Influenza test was negative. The patient was given levofloxacin, IV Solu-Medrol 80 mg, DuoNebs. The hospitalist service was consulted to admit the patient for further management. The patient was seen and examined in the emergency department at bedside. Boyfriend at bedside. Patient was on BiPAP. Patient stated that after she was placed on BiPAP her complaint of shortness of breath has significantly improved. She also complained of right lower extremity pain around the lateral aspect of the upper right leg. The patient stated that today she was walking around at about 9:00 a.m. and she fell down. The patient denied any history of loss of consciousness. At the time of examination, the patient complained of mild shortness of breath and right lower extremity pain. PAST MEDICAL HISTORY: Hyperlipidemia. Morbid obesity. Chronic hypoxic and hypercapnic respiratory failure secondary to end stage COPD, requires 4 liters supplemental oxygen. Nicotine dependence. Gastroesophageal reflux disease (GERD). ALLERGIES: No known drug allergies. HOME MEDICATIONS: Reviewed. Please refer to permanent medical records. SOCIAL HISTORY: The patient is an active smoker, denied use of alcohol and any illicit drug abuse, lives with her boyfriend. FAMILY HISTORY: Reviewed, noncontributory. PHYSICAL EXAMINATION: GENERAL: Patient is on BiPAP, not in acute distress. HEENT: Oral mucosa moist. NECK: Supple. RESPIRATORY SYSTEM: Bilateral decreased breath sounds. No rhonchi or wheezing. No crepitations. CARDIOVASCULAR SYSTEM: S1, S2 heard. ABDOMEN: Soft, obese, nontender. EXTREMITIES: Bilateral lower extremities neurovascularly intact. There is no tenderness. Mild restriction of right knee movement due to pain. CENTRAL NERVOUS SYSTEM: No focal deficits. PSYCHIATRIC: Mood normal. SKIN- no rash REVIEW OF SYSTEMS: 10 point review of systems was performed and it was negative except as per history of present illness. LABS: White count 10.0, hemoglobin 9.9, platelets 277. BUN 13, creatinine 0.56. Influenza negative. Chest x-ray no acute pathology. ASSESSMENT: 58-year-old female with chronic respiratory failure, nicotine dependence, complaining of worsening shortness of breath for the past few days, no specific aggravating or relieving factor. In the emergency department, the patient was found in respiratory distress and ABG was suggestive of acute hypercapnic respiratory failure. IMPRESSION: 1. Acute on chronic hypercapnic respiratory failure, most probably secondary to COPD exacerbation related to active smoking. PLAN: Patient was counseled extensively about smoking cessation, but the patient is not willing to quit. IV steroids, DuoNebs, IV levofloxacin, BiPAP as needed. We will consult the client delivery manager for BiPAP management. 2. Morbid obesity, supportive care. 3. Chronic anemia. Hemoglobin and hematocrit stable. Patient to follow-up with primary medical doctor for further workup and management. 4. Gastroesophageal reflux disease (GERD), home medications. 5. Hyperlipidemia. Home medication. DVT ppx - sq heparin MTDD
[2018-12-29] MEDS ORDERED: ALBUTEROL SULFATE 2.5 MG/0.5 ML INH NEB SOLN NEB PRN (15:00)
[2018-12-29 16:00] VITALS: BP 147/72
[2018-12-29] MEDS ORDERED: NICOTINE 14 MG/24 HR TRANSDERMAL TD PRN (16:30)
--- NOTE | 2018-12-29 16:54 | IPNPDOC ---
Date Seen The patient was seen on 12/29/18. Progress Note SUBJECTIVE: Patient admitted overnight for shortness of breath and hypercapnia respiratory failure. Patient started on BiPAP and in the ICU. Her shortness of breath is improved and currently has a Bernabe in due to urinary retention and difficulty ambulating due to BiPAP use. Patient states that she had right knee sprain and is aware that it is not broken. Provide supportive care for the pain and evaluate with PT and OT once respiratory status improves. OBJECTIVE PHYSICAL EXAMINATION: VITAL SIGNS: Please see below GENERAL APPEARANCE: Resting comfortably on BiPAP HEENT: Normocephalic, PERRLA, Mucous moist, CARDIOVASCULAR: S1,S2, pulse present, regularly, regular, no obvious murmur LUNGS: Equal air entry b/l, no wheezes or crackle ABDOMEN: Soft, BS present, no tenderness, no guarding, morbid obesity EXTREMITIES: B/L no edema, capillary refill present SKIN: Warm, No fever NEUROLOGICAL: Cranial nerves grossly intact PSYCHIATRIC: Normal mood and affect for current situation LABORATORY DATA, IMAGING STUDIES, MICROBIOLOGY: Please see below. ASSESSMENT: 58-year-old female past medical history of hyperlipidemia, morbid obesity, COPD endstage requiring 4 L nasal cannula, and nicotine dependent, GERD, hypertension, chronic knee pain admitted due to complaining of worsening shortne ss of breath for the past few days, no specific aggravating or relieving factor. In the emergency department, the patient was found in respiratory distress and ABG was suggestive of acute hypercapnic respiratory failure. Acute on chronic hypercapnic respiratory failure, most probably secondary to COPD exacerbation related to active smoking. -Patient was counseled extensively about smoking cessation, but the patient is not willing to quit. -IV steroids, DuoNebs, IV levofloxacin -consult with Dr. Olivia triage clinician for BiPAP management. -Bernabe due to urinary retention and difficulty ablation due to respiratory failure -cxr:Impression: No acute disease -Blood culture 2 pending result -Respiratory virus panel negative -nicotine patch prn Right leg/knee pain, suspect sprain -X-ray of the right tib-fib:No fracture or other acute bony abnormality. -Right knee:Mild diffuse osteopenia. No fracture seen. -Supportive therapy including amitriptyline, Mobic with omeprazole, Tylenol when necessary -Weight loss recommended Morbid obesity, supportive care. Chronic anemia. -Stable -No active bleed Gastroesophageal reflux disease (GERD), home medications. Hyperlipidemia. Home medication. Pertinent hypertension. Resume Lasix DISPOSITION: [PT/OT after BiPAP utilization no longer required.]. VS, I&O, 24H, Fishbone Vital Signs/I&O Vital Signs Date Time Temp Pulse Resp B/P (MAP) Pulse Ox O2 Delivery O2 Flow Rate FiO2 12/29/18 12:00 4.0 12/29/18 12:00 98.4 104 20 136/66 (89) 95 12/29/18 08:04 35 12/28/18 23:39 NIPPV (BIPAP/CPAP) I&O- Last 24 Hours up to 6 AM 12/29/18 06:00 Intake Total 480 ml Balance 480 ml Laboratory Data 24H LABS Laboratory Tests 2 12/28/18 18:23: Blood Gas Bicarbonate Standard 45.5H, Arterial Blood pH 7.247*L, Arterial Blood Partial Pressure CO2 125.6*H, Arterial Blood Partial Pressure O2 284.8H, Arterial Blood Total CO2 57.3H, Arterial Blood HCO3 53.5H, Arterial Blood Base Excess 21.1H, Arterial Blood Oxygen Saturation 99.5H, Anion Gap , Glomerular Filtration Rate > 60.0, Calcium Level 8.9, Aspartate Amino Transf (AST/SGOT) 24, Alanine Aminotransferase (ALT/SGPT) 23, Alkaline Phosphatase 111, Total Bilirubin 0.1L, Direct Bilirubin < 0.1, Total Creatine Kinase 101, Creatine Kinase MB 4.0H, Creatine Kinase MB Relative Index 4.06H, Troponin I < 0.02, SO-Udm-X-Type Natriuretic Peptide 195H, Total Protein 6.8, Albumin 3.7, Albumin/Globulin Ratio 1.19, Thyroid Stimulating Hormone (TSH) 0.587 12/28/18 18:48: Influenza Type A (RT-PCR) NEGATIVE, Influenza Type B (RT-PCR) NEGATIVE 12/28/18 20:34: Immature Granulocyte % (Auto) 0.4, White Blood Count 10.0, Red Blood Count 3.80L, Hemoglobin 9.9L, Hematocrit 34.6L, Mean Corpuscular Volume 91.1, Mean Corpuscular Hemoglobin 26.1L, Mean Corpuscular Hemoglobin Concent 28.6L, Red Cell Distribution Width 12.7, Platelet Count 277, Neutrophils (%) (Auto) 92.6H, Lymphocytes (%) (Auto) 3.6L, Monocytes (%) (Auto) 3.3, Eosinophils (%) (Auto) 0.0, Basophils (%) (Auto) 0.1, Neutrophils # (Auto) 9.2H, Lymphocytes # (Auto) 0.4L, Monocytes # (Auto) 0.3, Eosinophils # (Auto) 0.0, Basophils # (Auto) 0.0, Nucleated Red Blood Cells % (auto) 0.0 12/28/18 20:35: Blood Gas Bicarbonate Standard 45.3H, Arterial Blood pH 7.308L, Arterial Blood Partial Pressure CO2 105.6*H, Arterial Blood Partial Pressure O2 93.6, Arterial Blood Total CO2 55.0H, Arterial Blood HCO3 51.7H, Arterial Blood Base Excess 21.0H, Arterial Blood Oxygen Saturation 96.9 12/29/18 04:30: Anion Gap 1L, Glomerular Filtration Rate > 60.0, Blood Urea Nitrogen 16, Creatinine 0.46L, Sodium Level 133L, Potassium Level 3.6, Chloride Level 85L, Carbon Dioxide Level 47H, Calcium Level 8.8, Aspartate Amino Transf (AST/SGOT) 14, Alanine Aminotransferase (ALT/SGPT) 18, Alkaline Phosphatase 83, Total Bilirubin 0.3#, Total Protein 6.2L, Albumin 3.0L, Albumin/Globulin Ratio 0.94L 12/29/18 05:51: Blood Gas Bicarbonate Standard 36.5H, Arterial Blood pH 7.390, Arterial Blood Partial Pressure CO2 67.7*H, Arterial Blood Partial Pressure O2 64.0L, Arterial Blood Total CO2 42.1H, Arterial Blood HCO3 40.1H, Arterial Blood Base Excess 12.9H, Arterial Blood Oxygen Saturation 91.4L 12/29/18 10:55: Nucleated Red Blood Cells % (auto) 0.0 CBC/BMP Laboratory Tests 12/28/18 18:23 12/28/18 20:34 Red Blood Count 3.80 L, Mean Corpuscular Volume 91.1, Mean Corpuscular Hemoglobin 26.1 L, Mean Corpuscular Hemoglobin Concent 28.6 L, Red Cell Distribution Width 12.7, Neutrophils (%) (Auto) 92.6 H, Lymphocytes (%) (Auto) 3.6 L, Monocytes (%) (Auto) 3.3, Eosinophils (%) (Auto) 0.0, Basophils (%) (Auto) 0.1, Neutrophils # (Auto) 9.2 H, Lymphocytes # (Auto) 0.4 L, Monocytes # (Auto) 0.3, Eosinophils # (Auto) 0.0, Basophils # (Auto) 0.0 12/29/18 04:30 Calcium Level 8.8, Aspartate Amino Transf (AST/SGOT) 14, Alanine Aminotransferase (ALT/SGPT) 18, Alkaline Phosphatase 83, Total Bilirubin 0.3 #, Total Protein 6.2 L, Albumin 3.0 L 12/29/18 10:55 Red Blood Count 3.62 L, Mean Corpuscular Volume 87.0, Mean Corpuscular Hemoglobin 26.0 L, Mean Corpuscular Hemoglobin Concent 29.8 L, Red Cell Distribution Width 12.7 Microbiology Microbiology 12/28/18 Blood Culture, Received Pending 12/28/18 Blood Culture, Received Pending 12/29/18 Respiratory Virus Panel (PCR) ([facility]) - Final, Complete BOB ABDI MD Dec 29, 2018 16:54
[2018-12-29] MEDS: OMEPRAZOLE 20 MG CAP PO SCH (17:52)
[2018-12-29] MEDS: FUROSEMIDE 40 MG TAB PO SCH (17:52)
[2018-12-29] MEDS: GABAPENTIN 300 MG CAP PO SCH (17:52)
[2018-12-29] MEDS ORDERED: LevoFLOXacin IV 750 MG in APPROPRIATE DILUENT 1 EA IV SCH (18:00)
[2018-12-29 20:00] VITALS: BP 132/73
[2018-12-29] MEDS: DOCUSATE SODIUM 100 MG CAP PO SCH (20:06)
[2018-12-29] MEDS: AMITRIPTYLINE 25 MG TAB PO SCH (20:06)
[2018-12-29] MEDS: ATORVASTATIN 20 MG TAB PO SCH (20:06)
[2018-12-29] MEDS: MONTELUKAST 10 MG TAB PO SCH (20:06)
[2018-12-29] MEDS: ADVAIR HFA 230/21MCG INHALER INH SCH (20:56)
[2018-12-30] VITALS (7 sets, daily range): BP systolic 113–168; BP diastolic 55–86
[2018-12-30 04:47] LABS: HEMATOCRIT 31.6 % (36.0-47.0); HEMOGLOBIN 9.5 g/dl (12.0-15.5); MEAN CORPUSCULAR HEMOGLOBIN 26.1 pg (27.0-33.0); MEAN CORPUSCULAR HGB CONC 30.1 g/dl (32.0-36.5); MEAN CORPUSCULAR VOLUME 86.8 fl (80.0-96.0); PLATELET COUNT, AUTOMATED 267 10^3/uL (150-450); RED BLOOD COUNT 3.64 10^6/uL (4.00-5.40); WHITE BLOOD COUNT 8.3 10^3/uL (4.0-10.0)
[2018-12-30 05:27] LABS: ALT/SGPT 19 U/L (12-78); BILIRUBIN,TOTAL 0.2 MG/DL (0.2-1.0); BLOOD UREA NITROGEN 16 MG/DL (7-18); CALCIUM LEVEL 8.9 MG/DL (8.5-10.1); CARBON DIOXIDE LEVEL 49 MEQ/L (21-32); CHLORIDE LEVEL 89 MEQ/L (98-107); CREATININE FOR GFR 0.61 MG/DL (0.55-1.30); GLOMERULAR FILTRATION RATE > 60.0 (>51); GLUCOSE, FASTING 99 MG/DL (70-100); POTASSIUM SERUM 3.9 MEQ/L (3.5-5.1); SODIUM LEVEL 138 MEQ/L (136-145); TOTAL PROTEIN 5.9 GM/DL (6.4-8.2)
[2018-12-30] MEDS: HEPARIN SOD (PORCINE) 5000 UNITS/ML VIAL SC SCH ×3 (06:00→21:46)
[2018-12-30] MEDS: TIOTROPIUM INHALER/CAPSULE (SPIRIVA) INH SCH (08:16)
[2018-12-30] MEDS: ADVAIR HFA 230/21MCG INHALER INH SCH ×2 (08:16→20:03)
[2018-12-30] MEDS: predniSONE 10 MG TAB PO SCH (08:20)
[2018-12-30] MEDS: ASPIRIN 81 MG ENTERIC TAB PO SCH (08:20)
[2018-12-30] MEDS: MELOXICAM (MOBIC) 7.5 MG TAB PO SCH (08:20)
[2018-12-30] MEDS: FUROSEMIDE 40 MG TAB PO SCH (08:21)
[2018-12-30] MEDS: GABAPENTIN 300 MG CAP PO SCH (08:21)
[2018-12-30] MEDS: DOCUSATE SODIUM 100 MG CAP PO SCH ×2 (08:21→21:45)
[2018-12-30] MEDS: OMEPRAZOLE 20 MG CAP PO SCH (08:21)
[2018-12-30] MEDS: NICOTINE 14 MG/24 HR TRANSDERMAL TD SCH (09:02)
[2018-12-30] MEDS ORDERED: IPRATROPIUM 0.5MG/ALBUTEROL 2.5MG INH SOL UD 3ML (DUONEB)(J7620) NEB PRN (10:15)
--- NOTE | 2018-12-30 10:40 | CCN ---
DATE: 12/30/2018 Ms. Hung is seen in intensive care unit (ICU). She states that she is slowly improving. She is now using oxygen through nasal cannula at 4 liters. She did not use BiPap last night. She is coughing and she does desaturate some with the cough. Otherwise, she states her breathing is close to baseline. She is using a Nicoderm patch in hopes of working towards complete smoking cessation. She denies fevers or chills. She does state that she thinks the BiPap did help. PHYSICAL EXAMINATION: Vitals: Temperature is 98.6, pulse 117, respiratory rate 24, blood pressure is 113/55, pulse oximetry was 98% on 4 liters. This was decreased to 2 liters and was 90% on 2 liters. GENERAL: The patient is alert and oriented times three. She speaks in complete sentences. HEENT: Head is normocephalic, atraumatic. Moist mucous membranes. Neck is supple. No cervical lymphadenopathy. No jugular venous distention (JVD). Trachea is midline. PULMONARY: Diminished breath sounds in all wilson. No wheezes, rales, rhonchi or crackles. Prolongation of expiratory phase. No dullness to percussion. HEART: Regular rate and rhythm. No obvious murmurs. ABDOMEN: Positive bowel sounds, soft, nontender. No rebound or guarding. EXTREMITIES: Trace bilateral lower extremity edema. SKIN: Warm and dry. NEUROLOGIC: : Nonfocal. LABORATORIES: WBC 8.3, hemoglobin is 9.5, hematocrit 31.6, platelets 267. Sodium was 138, potassium 3.9, chloride is 89, carbon dioxide is 49, BUN 16, creatinine 0.61, glucose 66, calcium 8.9, total bili 0.2, AST 20, ALT 19, alkaline phosphatase 75, total protein 5.9, albumin 3.0. Respiratory virus panel was negative. Blood cultures showed no growth after 24 hours times two. ASSESSMENT/PLAN: 1. Acute on chronic hypercapnic respiratory failure. Plan for today is to try to titrate the patient's oxygen down to see if she can tolerate a lower supplemental oxygen level and hopefully to decrease her carbon dioxide. She is coughing. Therefore, we will add DuoNebs scheduled and as needed. She will continue Advair, Spiriva, Singulair. She is on chronic prednisone therapy. She is getting guaifenesin. The plan is to avoid excessive oxygen. 2. Tobacco use. The patient is getting nicotine patch. She was counseled on smoking cessation. 3. Probable obstructive sleep apnea / excessive daytime somnolence. The patient will require a pulmonary office followup soon after discharge for sleep evaluation for probable sleep apnea. She will probably need C-PAP or BiPap. Testing will need to be conducted as an outpatient through pulmonary office. We will sign off this patient for now but will be available if needed.
[2018-12-30] MEDS: IPRATROPIUM 0.5MG/ALBUTEROL 2.5MG INH SOL UD 3ML (DUONEB)(J7620) NEB SCH ×4 (11:08→23:52)
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
[2018-12-30] MEDS: ACETAMINOPHEN TAB 650MG DOSE (2X325MG) PO PRN (12:24)
--- NOTE | 2018-12-30 13:14 | IPNPDOC ---
Date Seen The patient was seen on 12/30/18. Progress Note SUBJECTIVE: Patient no longer requiring BiPAP and currently on nasal cannula. Patient -1595 net negative. Patient complained of multiple chronic condition including feet neuropathy which she takes gabapentin. Otherwise patient denies of any acute respiratory complaint. DC Bernabe for void trial. Inform by staff pt okay to downgrade out of ICU by Kiln Cleaner. OBJECTIVE PHYSICAL EXAMINATION: VITAL SIGNS: Please see below GENERAL APPEARANCE: Resting comfortably on nasal cannula HEENT: Normocephalic, PERRLA, Mucous moist, CARDIOVASCULAR: S1,S2, pulse present, regularly, regular, no obvious murmur LUNGS: Equal air entry b/l, no wheezes or crackle ABDOMEN: Soft, BS present, no tenderness, no guarding, morbid obesity EXTREMITIES: B/L no edema, capillary refill present SKIN: Warm, No fever NEUROLOGICAL: Cranial nerves grossly intact PSYCHIATRIC: Normal mood and affect for current situation LABORATORY DATA, IMAGING STUDIES, MICROBIOLOGY: Please see below. ASSESSMENT: 58-year-old female past medical history of hyperlipidemia, morbid obesity, COPD endstage requiring 4 L nasal cannula, and nicotine dependent, GERD, hypertension, chronic knee pain admitted due to complaining of worsening shortness of breath for the past few days, no specific aggravating or relieving factor. In the emergency department, the patient was found in respiratory distress and ABG was suggestive of acute hypercapnic respiratory failure. Patient was started on BiPAP once admitted to ICU. Patient titrated off the BiPAP and on nasal cannula. Patient downgraded. Acute on chronic hypercapnic respiratory failure, COPD exacerbation related to active smoking and hypoxemia dependency. -Patient was counseled extensively about smoking cessation, but the patient is not willing to quit. -IV steroids, DuoNebs, s/p IV levofloxacin -Status post consult with Dr. Olivia/Kusum sr. operations manager for BiPAP management. -Bernabe due to urinary retention and difficulty ablation due to respiratory failure. Void trial -cxr:Impression: No acute disease -Blood culture 2 no growth to date -Respiratory virus panel negative -nicotine patch prn Chronic Right leg/knee pain, suspect sprain and OA -X-ray of the right tib-fib:No fracture or other acute bony abnormality. -Right knee:Mild diffuse osteopenia. No fracture seen. -Supportive therapy including amitriptyline, Mobic with omeprazole, Tylenol when necessary -Weight loss recommended Morbid obesity, supportive care. Chronic peripheral neuropathy -Gabapentin Chronic anemia. -Stable -No active bleed Gastroesophageal reflux disease (GERD), home medications. Hyperlipidemia. Home medication. Pertinent hypertension. Resume Lasix DISPOSITION: [PT/OT evaluation tomorrow] VS, I&O, 24H, Fishbone Vital Signs/I&O Vital Signs Date Time Temp Pulse Resp B/P (MAP) Pulse Ox O2 Delivery O2 Flow Rate FiO2 12/30/18 11:15 98.9 122 22 132/73 (92) 89 4.0 12/29/18 08:04 35 12/28/18 23:39 NIPPV (BIPAP/CPAP) I&O- Last 24 Hours up to 6 AM 12/30/18 06:00 Intake Total 2080 ml Output Total 2920 ml Balance -840 ml Laboratory Data 24H LABS Laboratory Tests 2 12/30/18 04:29: Nucleated Red Blood Cells % (auto) 0.0, Anion Gap 0L, Glomerular Filtration Rate > 60.0, Blood Urea Nitrogen 16, Creatinine 0.61, Sodium Level 138, Potassium Level 3.9, Chloride Level 89L, Carbon Dioxide Level 49H, Calcium Level 8.9, Aspartate Amino Transf (AST/SGOT) 20, Alanine Aminotransferase (ALT/SGPT) 19, Alkaline Phosphatase 75, Total Bilirubin 0.2, Total Protein 5.9L, Albumin 3.0L, Albumin/Globulin Ratio 1.03 CBC/BMP Laboratory Tests 12/30/18 04:29 Red Blood Count 3.64 L, Mean Corpuscular Volume 86.8, Mean Corpuscular Hemoglobin 26.1 L, Mean Corpuscular Hemoglobin Concent 30.1 L, Red Cell Distribution Width 13.1, Calcium Level 8.9, Aspartate Amino Transf (AST/SGOT) 20, Alanine Aminotransferase (ALT/SGPT) 19, Alkaline Phosphatase 75, Total Bilirubin 0.2, Total Protein 5.9 L, Albumin 3.0 L Microbiology Microbiology 12/28/18 Blood Culture - Preliminary, Resulted No growth after 24 hours . All specim... 12/28/18 Blood Culture - Preliminary, Resulted No growth after 24 hours . All specim... 12/29/18 Respiratory Virus Panel (PCR) ([facility]) - Final, Complete BOB ABDI MD Dec 30, 2018 13:14
[2018-12-30] MEDS ORDERED: ALBUTEROL SULFATE 2.5 MG/0.5 ML INH NEB SOLN NEB PRN (13:15)
[2018-12-30] MEDS: MONTELUKAST 10 MG TAB PO SCH (21:46)
[2018-12-30] MEDS: ATORVASTATIN 20 MG TAB PO SCH (21:46)
[2018-12-30] MEDS: AMITRIPTYLINE 25 MG TAB PO SCH (21:46)
[2018-12-31 04:00] VITALS: BP 150/73
[2018-12-31] MEDS: IPRATROPIUM 0.5MG/ALBUTEROL 2.5MG INH SOL UD 3ML (DUONEB)(J7620) NEB SCH ×5 (04:22→19:44)
[2018-12-31 05:52] LABS: HEMATOCRIT 32.1 % (36.0-47.0); HEMOGLOBIN 9.4 g/dl (12.0-15.5); MEAN CORPUSCULAR HEMOGLOBIN 25.8 pg (27.0-33.0); MEAN CORPUSCULAR HGB CONC 29.3 g/dl (32.0-36.5); MEAN CORPUSCULAR VOLUME 88.2 fl (80.0-96.0); PLATELET COUNT, AUTOMATED 265 10^3/uL (150-450); RED BLOOD COUNT 3.64 10^6/uL (4.00-5.40); WHITE BLOOD COUNT 7.8 10^3/uL (4.0-10.0)
[2018-12-31] MEDS: HEPARIN SOD (PORCINE) 5000 UNITS/ML VIAL SC SCH ×3 (05:56→21:38)
[2018-12-31 06:17] LABS: ALBUMIN 2.8 GM/DL (3.2-5.2); ALT/SGPT 18 U/L (12-78); BILIRUBIN,TOTAL 0.3 MG/DL (0.2-1.0); BLOOD UREA NITROGEN 17 MG/DL (7-18); CALCIUM LEVEL 9.1 MG/DL (8.5-10.1); CARBON DIOXIDE LEVEL 43 MEQ/L (21-32); CHLORIDE LEVEL 89 MEQ/L (98-107); CREATININE FOR GFR 0.48 MG/DL (0.55-1.30); GLOMERULAR FILTRATION RATE > 60.0 (>51); GLUCOSE, FASTING 120 MG/DL (70-100); POTASSIUM SERUM 3.2 MEQ/L (3.5-5.1); SODIUM LEVEL 137 MEQ/L (136-145); TOTAL PROTEIN 6.1 GM/DL (6.4-8.2)
[2018-12-31 07:26] VITALS: BP 165/78
[2018-12-31] MEDS ORDERED: MAGNESIUM OXIDE 400 MG TAB (MAG-OX) PO ONE (09:00)
[2018-12-31] MEDS: ADVAIR HFA 230/21MCG INHALER INH SCH ×2 (09:00→19:44)
[2018-12-31] MEDS: TIOTROPIUM INHALER/CAPSULE (SPIRIVA) INH SCH (09:00)
[2018-12-31] MEDS ORDERED: POTASSIUM CHLORIDE 10 MEQ SR TABLET PO ONE (09:00)
[2018-12-31] MEDS: predniSONE 10 MG TAB PO SCH (09:34)
[2018-12-31] MEDS: OMEPRAZOLE 20 MG CAP PO SCH (09:34)
[2018-12-31] MEDS: DOCUSATE SODIUM 100 MG CAP PO SCH ×2 (09:34→21:36)
[2018-12-31] MEDS: GABAPENTIN 300 MG CAP PO SCH (09:35)
[2018-12-31] MEDS: ASPIRIN 81 MG ENTERIC TAB PO SCH (09:35)
[2018-12-31] MEDS: FUROSEMIDE 40 MG TAB PO SCH (09:35)
[2018-12-31] MEDS: MELOXICAM (MOBIC) 7.5 MG TAB PO SCH (09:35)
[2018-12-31] MEDS: NICOTINE 14 MG/24 HR TRANSDERMAL TD SCH (09:36)
[2018-12-31 11:40] VITALS: BP 146/69
--- NOTE | 2018-12-31 12:05 | IPNPDOC ---
Date Seen The patient was seen on 12/31/18. Progress Note SUBJECTIVE: No new complaint this morning. But she complained of her chronic leg discomfort that she has from home. She had xray which did not show fracture. Continue non-narcotic supportive therapy and continue with PT/OT. OBJECTIVE PHYSICAL EXAMINATION: VITAL SIGNS: Please see below GENERAL APPEARANCE: Resting comfortably on nasal cannula HEENT: Normocephalic, PERRLA, Mucous moist, CARDIOVASCULAR: S1,S2, pulse present, regularly, regular, no obvious murmur LUNGS: Equal air entry b/l, no wheezes or crackle ABDOMEN: Soft, BS present, no tenderness, no guarding, morbid obesity EXTREMITIES: B/L no edema, capillary refill present SKIN: Warm, No fever NEUROLOGICAL: Cranial nerves grossly intact PSYCHIATRIC: Normal mood and affect for current situation LABORATORY DATA, IMAGING STUDIES, MICROBIOLOGY: Please see below. ASSESSMENT: 58-year-old female past medical history of hyperlipidemia, morbid obesity, COPD endstage requiring 4 L nasal cannula, and nicotine dependent, GERD, hyper tension, chronic knee pain admitted due to complaining of worsening shortness of breath for the past few days, no specific aggravating or relieving factor. In the emergency department, the patient was found in respiratory distress and ABG was suggestive of acute hypercapnic respiratory failure. Patient was started on BiPAP once admitted to ICU. Patient titrated off the BiPAP and on nasal cannula. Patient downgraded. Acute on chronic hypercapnic respiratory failure, COPD exacerbation related to active smoking and hypoxemia dependency. -Chronically on home O2, per patient 4L nc at home, she smoke at home but takes off oxygen before smoking. Cessation STRONGLY advise in light of home oxygen u se. -Patient was counseled extensively about smoking cessation, but the patient is not willing to quit. -IV steroids, DuoNebs, s/p IV levofloxacin -Status post consult with Dr. Olivia/Kusum transmission technician for BiPAP management. -Bernabe due to urinary retention and difficulty ablation due to respiratory failure. Void trial -cxr:Impression: No acute disease -Blood culture 2 no growth to date -Respiratory virus panel negative -nicotine patch Chronic Right leg/knee pain, suspect sprain and OA -X-ray of the right tib-fib:No fracture or other acute bony abnormality. -Right knee:Mild diffuse osteopenia. No fracture seen. -Supportive therapy including amitriptyline, Mobic with omeprazole, Tylenol when necessary -Weight loss recommended Morbid obesity, supportive care. Chronic peripheral neuropathy -Gabapentin Chronic anemia. -Stable -No active bleed Gastroesophageal reflux disease (GERD), home medications. Hyperlipidemia. Home medication. Pertinent hypertension. Resume Lasix DISPOSITION: [Home if able to return to baseline home oxygen requirement without desaturation] VS, I&O, 24H, Fishbone Vital Signs/I&O Vital Signs Date Time Temp Pulse Resp B/P (MAP) Pulse Ox O2 Delivery O2 Flow Rate FiO2 12/31/18 11:40 97.6 111 20 146/69 (94) 91 4.0 12/30/18 23:52 Nasal Cannula 12/29/18 08:04 35 I&O- Last 24 Hours up to 6 AM 12/31/18 06:00 Intake Total 1920 ml Output Total 1475 ml Balance 445 ml Laboratory Data 24H LABS Laboratory Tests 2 12/31/18 05:26: Nucleated Red Blood Cells % (auto) 0.0, Anion Gap 5L, Glomerular Filtration Rate > 60.0, Blood Urea Nitrogen 17, Creatinine 0.48L, Sodium Level 137, Potassium Level 3.2L, Chloride Level 89L, Carbon Dioxide Level 43H, Calcium Level 9.1, Aspartate Amino Transf (AST/SGOT) 18, Alanine Aminotransferase (ALT/SGPT) 18, Alkaline Phosphatase 83, Total Bilirubin 0.3, Total Protein 6.1L, Albumin 2.8L, Albumin/Globulin Ratio 0.85L CBC/BMP Laboratory Tests 12/31/18 05:26 Red Blood Count 3.64 L, Mean Corpuscular Volume 88.2, Mean Corpuscular Hemoglobin 25.8 L, Mean Corpuscular Hemoglobin Concent 29.3 L, Red Cell Distribution Width 13.1, Calcium Level 9.1, Aspartate Amino Transf (AST/SGOT) 18, Alanine Aminotransferase (ALT/SGPT) 18, Alkaline Phosphatase 83, Total Bilirubin 0.3, Total Protein 6.1 L, Albumin 2.8 L Microbiology Microbiology 12/28/18 Blood Culture - Preliminary, Resulted No Growth after 48 hours. All Specime... 12/28/18 Blood Culture - Preliminary, Resulted No Growth after 48 hours. All Specime... 12/29/18 Respiratory Virus Panel (PCR) ([facility]) - Final, Complete BOB ABDI MD Dec 31, 2018 12:05
--- NOTE | 2018-12-31 15:22 | CCN ---
DATE: 12/31/2018 Ms. Hung has been doing fairly well. She is sitting at the side of her bed during our visit today. She states she still feels tired and worn out. I have encouraged ambulation and physical activity with nursing assistance. She has some shortness of breath, but she denies that she is any worse than yesterday. She has no hemoptysis. She has noted that she occasionally wheezes; however, this is improved since admission. She has no chest pain, chest pressure. PHYSICAL EXAMINATION: Temperature is 97.6, pulse ranges 105-111, respiratory rate is 20, blood pressure is 146/69, oxygen saturation 91% on 4 liters, which is close to her baseline oxygen requirements. GENERAL: The patient is awake, alert, and oriented. Affect appropriate. Nutrition and hygiene are good. Oral mucosa is normal. She has poor dentition. Oropharynx is crowded, Mallampati 4. NECK: Supple without thyromegaly or masses. Trachea is midline. There is no elevated jugular venous pulse (JVP) that is discernible. LYMPH: No cervical, supraclavicular, axillary adenopathy. CARDIAC: There are decreased breath sounds throughout. Poor air entry. I do not auscultate any wheeze, rhonchi, or rales. Expiratory phase is significantly prolonged at this point in time. There is no accessory muscle use. There is increased AP diameter. CARDIAC: Regular S1, S2 but distant. No murmur, rub, or gallop. No discernible elevated JVP. Minimal pedal edema. ABDOMEN: Obese, soft, nontender, nontender with no splenomegaly. No masses or hernia. EXTREMITIES: No cyanosis, clubbing. Minimal pedal edema. Peripheral pulses are palpable at radial locations and symmetric. Nails without clubbing or cyanosis. MUSCULOSKELETAL: Without evidence of recent trauma. No joint effusions or evidence of fracture. NEUROLOGIC: No unilateral weakness or tremor. The patient able to complete sentences, follow simple commands, and is alert and oriented times three. LABORATORY EVALUATION: Shows a white blood cell count of 7.8, hemoglobin 9.4, hematocrit of 32.1 with a platelet count is 265. Sodium is 137, potassium 3.2, bicarbonate 43, chloride is 89, BUN 17, creatinine 0.48, glucose of 120 with an albumin of 2.8. Of note, influenza A and B panel has been negative. IMPRESSION: This is a 58-year-old female with a chronic hypercarbic hypoxic respiratory failure, close to baseline. 1. Recommend discharging from pulmonary standpoint. Will continue to follow the patient as an outpatient. She should continue her inhaled therapy, low-dose prednisone until seen in the office. Infectious surveillance reviewed with the patient. 2. Nicotine dependence. Extensively counseled on need to be smoke free. The patient has attempted quitting before. I have offered assistance. MAURICE
[2018-12-31 16:00] VITALS: BP 138/93
[2018-12-31] MEDS: ACETAMINOPHEN TAB 650MG DOSE (2X325MG) PO PRN (17:55)
[2018-12-31 20:00] VITALS: BP 134/75
[2018-12-31] MEDS: AMITRIPTYLINE 25 MG TAB PO SCH (21:36)
[2018-12-31] MEDS: MONTELUKAST 10 MG TAB PO SCH (21:36)
[2018-12-31] MEDS: ATORVASTATIN 20 MG TAB PO SCH (21:36)
[2018-12-31] MEDS: LIDOCAINE 5% (LIDODERM) PATCH TD SCH (21:37)
[2018-12-31 23:59] VITALS: BP 132/60
[2019-01-01 04:00] VITALS: BP 144/59
[2019-01-01] MEDS: IPRATROPIUM 0.5MG/ALBUTEROL 2.5MG INH SOL UD 3ML (DUONEB)(J7620) NEB SCH ×6 (04:00→20:30)
[2019-01-01] MEDS: HEPARIN SOD (PORCINE) 5000 UNITS/ML VIAL SC SCH ×3 (06:11→21:11)
[2019-01-01 07:32] VITALS: BP 134/98
[2019-01-01] MEDS: FUROSEMIDE 40 MG TAB PO SCH (08:00)
[2019-01-01] MEDS: DOCUSATE SODIUM 100 MG CAP PO SCH ×2 (08:01→21:11)
[2019-01-01] MEDS: ACETAMINOPHEN TAB 650MG DOSE (2X325MG) PO PRN (08:01)
[2019-01-01] MEDS: predniSONE 10 MG TAB PO SCH (08:01)
[2019-01-01] MEDS: GABAPENTIN 300 MG CAP PO SCH (08:01)
[2019-01-01] MEDS: OMEPRAZOLE 20 MG CAP PO SCH (08:01)
[2019-01-01] MEDS: ASPIRIN 81 MG ENTERIC TAB PO SCH (08:01)
[2019-01-01] MEDS: MELOXICAM (MOBIC) 7.5 MG TAB PO SCH (08:02)
[2019-01-01] MEDS: **NOTE PATIENT COMMENT** MISC XX SCH (08:02)
[2019-01-01] MEDS: NICOTINE 14 MG/24 HR TRANSDERMAL TD SCH (08:02)
[2019-01-01] MEDS: TIOTROPIUM INHALER/CAPSULE (SPIRIVA) INH SCH (08:39)
[2019-01-01] MEDS: ADVAIR HFA 230/21MCG INHALER INH SCH ×2 (08:39→20:30)
[2019-01-01] MEDS ORDERED: POTASSIUM CHLORIDE 10 MEQ SR TABLET PO ONE (09:00)
[2019-01-01] MEDS ORDERED: MAGNESIUM OXIDE 400 MG TAB (MAG-OX) PO ONE (09:00)
[2019-01-01 11:46] VITALS: BP 148/82
--- NOTE | 2019-01-01 12:16 | IPNPDOC ---
Date Seen The patient was seen on 01/01/19. Progress Note SUBJECTIVE:Still coughing but unable to bring up sputum. Will provide pulmonary toiletry. Otherwise, no new complaints today. No short of breath with rest. she is willing to ambulated with staff today. Will monitor for desaturation ambulating while on her nml 4L nc. OBJECTIVE PHYSICAL EXAMINATION: VITAL SIGNS: Please see below GENERAL APPEARANCE: comfortably on nasal cannula HEENT: Normocephalic, PERRLA, Mucous moist, CARDIOVASCULAR: S1,S2, pulse present, regularly, regular LUNGS: Equal air entry b/l, no wheezes or crackle ABDOMEN: Soft, BS present, no tenderness, no guarding, morbid obesity EXTREMITIES: B/L no edema, capillary refill present SKIN: Warm, No fever NEUROLOGICAL: Cranial nerves grossly intact PSYCHIATRIC: Normal mood and affect for current situation LABORATORY DATA, IMAGING STUDIES, MICROBIOLOGY: Please see below. ASSESSMENT: 58-year-old female past medical history of hyperlipidemia, morbid obesity, COPD endstage requiring 4 L nasal cannula, and nicotine dependent, GERD, hypertension, chronic knee pain admitted due to complaining of worsening shortness of breath for the past few days, no specific aggravating or relieving factor. In the emergency department, the patient was found in respiratory distress and ABG was suggestive of acute hypercapnic respiratory failure. Patient was started on BiPAP once admitted to ICU. Patient titrated off the BiPAP and on nasal cannula. Patient downgraded. Acute on chronic hypercapnic respiratory failure, COPD exacerbation related to active smoking and hypoxemia dependency. -Chronically on home O2, per patient 4L nc at home, she smoke at home but takes off oxygen before smoking. Cessation STRONGLY advise in light of home oxygen use. -Patient was counseled extensively about smoking cessation. Pt willing to try. -IV steroids, DuoNebs, s/p IV levofloxacin -Status post consult with Dr. Olivia/Kusum biofuels technology manager for BiPAP management. Outpatient f/u with Pulm. -Bernabe due to urinary retention and difficulty ablation due to respiratory failure. Void trial -cxr:Impression: No acute disease -Blood culture 2 no growth to date -Respiratory virus panel negative -nicotine patch Chronic Right leg/knee pain, suspect sprain and OA -X-ray of the right tib-fib:No fracture or other acute bony abnormality. -Right knee:Mild diffuse osteopenia. No fracture seen. -Supportive therapy including amitriptyline, Mobic with omeprazole, Tylenol when necessary -Weight loss recommended Morbid obesity, supportive care. Chronic peripheral neuropathy -Gabapentin Chronic anemia. -Stable -No active bleed Gastroesophageal reflux disease (GERD), home medications. Hyperlipidemia. Home medication. Pertinent hypertension. Resume Lasix DISPOSITION: [Home if able to return to baseline home oxygen requirement without desaturation] VS, I&O, 24H, Fishbone Vital Signs/I&O Vital Signs Date Time Temp Pulse Resp B/P (MAP) Pulse Ox O2 Delivery O2 Flow Rate FiO2 01/01/19 11:46 97.6 114 18 148/82 (104) 92 3.0 12/31/18 19:45 Nasal Cannula 12/29/18 08:04 35 I&O- Last 24 Hours up to 6 AM 01/01/19 05:59 Intake Total 1080 ml Output Total 3400 ml Balance -2320 ml Laboratory Data Microbiology Microbiology 12/28/18 Blood Culture - Preliminary, Resulted No Growth after 72 hours. All specime... 12/28/18 Blood Culture - Preliminary, Resulted No Growth after 72 hours. All specime... 12/29/18 Respiratory Virus Panel (PCR) ([facility]) - Final, Complete BOB ABDI MD Jan 01, 2019 12:16
[2019-01-01 15:47] VITALS: BP 140/74
[2019-01-01 20:00] VITALS: BP 146/72
[2019-01-01] MEDS: LIDOCAINE 5% (LIDODERM) PATCH TD SCH (21:10)
[2019-01-01] MEDS: ATORVASTATIN 20 MG TAB PO SCH (21:11)
[2019-01-01] MEDS: AMITRIPTYLINE 25 MG TAB PO SCH (21:11)
[2019-01-01] MEDS: MONTELUKAST 10 MG TAB PO SCH (21:11)
[2019-01-01 23:59] VITALS: BP 148/70
[2019-01-02] MEDS: IPRATROPIUM 0.5MG/ALBUTEROL 2.5MG INH SOL UD 3ML (DUONEB)(J7620) NEB SCH ×5 (00:11→14:54)
[2019-01-02 04:00] VITALS: BP 120/63
[2019-01-02 05:45] LABS: HEMATOCRIT 31.3 % (36.0-47.0); HEMOGLOBIN 8.8 g/dl (12.0-15.5); MEAN CORPUSCULAR HEMOGLOBIN 25.1 pg (27.0-33.0); MEAN CORPUSCULAR HGB CONC 28.1 g/dl (32.0-36.5); MEAN CORPUSCULAR VOLUME 89.2 fl (80.0-96.0); PLATELET COUNT, AUTOMATED 254 10^3/uL (150-450); RED BLOOD COUNT 3.51 10^6/uL (4.00-5.40); WHITE BLOOD COUNT 7.6 10^3/uL (4.0-10.0)
[2019-01-02] MEDS: HEPARIN SOD (PORCINE) 5000 UNITS/ML VIAL SC SCH ×2 (05:53→14:35)
[2019-01-02 06:33] LABS: BLOOD UREA NITROGEN 11 MG/DL (7-18); CALCIUM LEVEL 8.8 MG/DL (8.5-10.1); CARBON DIOXIDE LEVEL 47 MEQ/L (21-32); CHLORIDE LEVEL 90 MEQ/L (98-107); CREATININE FOR GFR 0.62 MG/DL (0.55-1.30); GLOMERULAR FILTRATION RATE > 60.0 (>51); GLUCOSE, FASTING 110 MG/DL (70-100); POTASSIUM SERUM 3.6 MEQ/L (3.5-5.1); SODIUM LEVEL 137 MEQ/L (136-145)
[2019-01-02] MEDS: TIOTROPIUM INHALER/CAPSULE (SPIRIVA) INH SCH (07:18)
[2019-01-02] MEDS: ADVAIR HFA 230/21MCG INHALER INH SCH (07:18)
[2019-01-02 08:00] VITALS: BP 131/66
[2019-01-02] MEDS: DOCUSATE SODIUM 100 MG CAP PO SCH (09:56)
[2019-01-02] MEDS: predniSONE 10 MG TAB PO SCH (09:57)
[2019-01-02] MEDS: **NOTE PATIENT COMMENT** MISC XX SCH (09:57)
[2019-01-02] MEDS: GABAPENTIN 300 MG CAP PO SCH (09:57)
[2019-01-02] MEDS: ASPIRIN 81 MG ENTERIC TAB PO SCH (09:57)
[2019-01-02] MEDS: OMEPRAZOLE 20 MG CAP PO SCH (09:57)
[2019-01-02] MEDS: MELOXICAM (MOBIC) 7.5 MG TAB PO SCH (09:57)
[2019-01-02] MEDS: FUROSEMIDE 40 MG TAB PO SCH (09:57)
[2019-01-02] MEDS: NICOTINE 14 MG/24 HR TRANSDERMAL TD SCH (09:58)
[2019-01-02 12:00] VITALS: BP 130/66
[2019-01-02] MEDS ORDERED: SLF 3 ML SYR IV PRN (14:00)
[2019-01-02] MEDS ORDERED: SLF 3 ML SYR IV SCH (14:00)
--- NOTE | 2019-01-02 15:14 | DS.PDOC ---
Discharge Summary General Date of Admission Dec 28, 2018 at 21:04 Discharge Summary PROCEDURES PERFORMED DURING STAY: [None]. ADMITTING DIAGNOSES: Acute on chronic hypercapnic respiratory failure, COPD exacerbation related to active smoking and hypoxemia dependency. Chronic Right leg/knee pain, suspect sprain and OA Morbid obesity Chronic peripheral neuropathy Chronic anemia. Gastroesophageal reflux disease (GERD) Hyperlipidemia DISCHARGE DIAGNOSES: Acute on chronic hypercapnic respiratory failure, COPD exacerbation related to active smoking and hypoxemia dependency. Chronic Right leg/knee pain, suspect sprain and OA Morbid obesity Chronic peripheral neuropathy Chronic anemia. Gastroesophageal reflux disease (GERD) Hyperlipidemia COMPLICATIONS/CHIEF COMPLAINT: Acut Hypercapnic Respiratory Failure. HISTORY OF PRESENT ILLNESS: [58-year-old female with chronic hypoxic and hypercapnic respiratory failure secondary to chronic obstructive pulmonary disease (COPD) who came to the emergency department for complaints of worsening shortness of breath for the past few days. In the emergency room, the patient w as found in mild respiratory distress and immediately placed on BiPAP. She was found with vitals of temperature 98.1, blood pressure 159/67, heart rate 123, respiratory rate 28,saturating 92% on supplemental oxygen. Chest x-ray did not show any acutepathology. ABG was pH 7.247, pCO2 125.6. Influenza test was negative. Thepatient was given levofloxacin, IV Solu-Medrol 80 mg, DuoNebs. The hospitalist service was consulted to admit the patient for further management. The patient was seen and examined in the emergency department at bedside.Boyfriend at bedside. Patient was on BiPAP. Patient stated that after she was placed on BiPAP her complaint of shortness of breath has significantly improved. She also complained of right lower extremity pain around the lateral aspect of the upper right leg. The patient stated that today she was walking around at about 9:00 a.m. and she fell down. The patient denied any history of loss of consciousness. At the time of examination, the patient complained of mild shortness of breath and right lower extremity pain.]. HOSPITAL COURSE: [58-year-old female past medical history of hyperlipidemia, morbid obesity, COPD endstage requiring 4 L nasal cannula, and nicotine dependent, GERD, hypertension, chronic knee pain admitted due to complaining of worsening shortness of breath for the past few days, no specific aggravating or relieving factor. In the emergency department, the patient was found in respiratory distress and ABG was suggestive of acute hypercapnic respiratory failure. Patient was started on BiPAP once admitted to ICU. Patient titrated off the BiPAP and on nasal cannula. Patient downgraded. Patient evaluated by PT/OT and patient stable to return home with home health on her nml home oxygen of 4L nc. Patient already on azithromycin po and PO prednisone. Please resume prednisone and azithromcyin and follow up with PCP and Civil Cad Designer as outpatient within 1 week. Acute on chronic hypercapnic respiratory failure, COPD exacerbation related to active smoking and hypoxemia dependency. -Chronically on home O2, per patient 4L nc at home, she smoke at home but takes off oxygen before smoking. Cessation STRONGLY advise in light of home oxygen use. -Patient was counseled extensively about smoking cessation. Pt willing to try. -IV steroids, DuoNebs, s/p IV levofloxacin. Patient already on azithromycin po a nd PO prednisone. Please follow up with PCP and Civil Cad Designer. -Status post consult with Dr. Olivia/Kusum plant utility person for BiPAP management. Outpatient f/u with Pulm. -Bernabe due to urinary retention and difficulty ablation due to respiratory failure. Void trial -cxr:Impression: No acute disease -Blood culture 2 no growth to date -Respiratory virus panel negative -nicotine patch Chronic Right leg/knee pain, suspect sprain and OA -X-ray of the right tib-fib:No fracture or other acute bony abnormality. -Right knee:Mild diffuse osteopenia. No fracture seen. -Supportive therapy including amitriptyline, Mobic with omeprazole, Tylenol when necessary -Weight loss recommended Morbid obesity, supportive care. Chronic peripheral neuropathy -Gabapentin Chronic anemia. -Stable -No active bleed Gastroesophageal reflux disease (GERD), home medications. Hyperlipidemia. Home medication. Pertinent hypertension. Resume Lasix]. DISCHARGE MEDICATIONS: Please see below. ALLERGIES: Please see below. PHYSICAL EXAMINATION: VITAL SIGNS: Please see below GENERAL APPEARANCE: comfortably on nasal cannula HEENT: Normocephalic, PERRLA, Mucous moist, CARDIOVASCULAR: S1,S2, pulse present, regularly, regular LUNGS: Equal air entry b/l, no wheezes or crackle ABDOMEN: Soft, BS present, no tenderness, no guarding, morbid obesity EXTREMITIES: B/L no edema, capillary refill present SKIN: Warm, No fever NEUROLOGICAL: Cranial nerves grossly intact PSYCHIATRIC: Normal mood and affect for current situation LABORATORY DATA: Please see below. IMAGING: PROGNOSIS: ACTIVITY: [As tolerated]. DIET: DISCHARGE PLAN: DISPOSITION: . DISCHARGE INSTRUCTIONS: 1. . ITEMS TO FOLLOWUP ON ON OUTPATIENT: 1. . DISCHARGE CONDITION: [Stable]. TIME SPENT ON DISCHARGE: Greater than minutes. Vital Signs/I&Os Vital Signs Date Time Temp Pulse Resp B/P (MAP) Pulse Ox O2 Delivery O2 Flow Rate FiO2 01/02/19 12:00 97.8 101 18 130/66 (87) 95 4.0 01/02/19 00:11 Nasal Cannula 12/29/18 08:04 35 I&O- Last 24 Hours up to 6 AM 01/02/19 05:59 Intake Total 2060 ml Output Total 1100 ml Balance 960 ml Laboratory Data Labs 24H Laboratory Tests 2 01/02/19 05:13: Nucleated Red Blood Cells % (auto) 0.0, Anion Gap 0L, Glomerular Filtration Rate > 60.0, Blood Urea Nitrogen 11, Creatinine 0.62, Sodium Level 137, Potassium Level 3.6, Chloride Level 90L, Carbon Dioxide Level 47H, Calcium Level 8.8 CBC/BMP Laboratory Tests 01/02/19 05:13 Red Blood Count 3.51 L, Mean Corpuscular Volume 89.2, Mean Corpuscular Hemoglobin 25.1 L, Mean Corpuscular Hemoglobin Concent 28.1 L, Red Cell Distribution Width 12.8, Calcium Level 8.8 Microbiology Microbiology 12/28/18 Blood Culture - Preliminary, Resulted No Growth after 72 hours. All specime... 12/28/18 Blood Culture - Preliminary, Resulted No Growth after 72 hours. All specime... 12/29/18 Respiratory Virus Panel (PCR) ([facility]) - Final, Complete Discharge Medications Scheduled Amitriptyline HCl (Amitriptyline HCl) 75 Mg Tab, 75 MG PO QHS, (Reported) Aspirin (Aspirin EC) 81 Mg Tab, 81 MG PO DAILY, (Reported) Atorvastatin Calcium (Atorvastatin Calcium) 20 Mg Tab, 20 MG PO QHS, (Reported) Azithromycin (Azithromycin) 500 Mg Tablet, 500 MG PO Q2D, (Reported) Docusate Sodium (Docusate Sodium) 100 Mg Cap, 100 MG PO BID, (Reported) Ergocalciferol (Vitamin D2) (Drisdol) 50,000 Unit Cap, 50,000 UNIT PO QWEEK, (Reported) SATURDAYS Furosemide (Furosemide) 40 Mg Tab, 40 MG PO DAILY, (Reported) Gabapentin (Gabapentin) 300 Mg Cap, 300 MG PO DAILY, (Reported) Meloxicam (Meloxicam) 15 Mg Tab, 15 MG PO DAILY, (Reported) Montelukast Sodium (Singulair) 10 Mg Tab, 10 MG PO QHS, (Reported) Omeprazole (Omeprazole) 40 Mg Cap, 40 MG PO DAILY, (Reported) Prednisone (Prednisone) 20 Mg Tablet, 20 MG PO DAILY, (Reported) Salmeterol/Fluticasone (Advair 500-50 Diskus) 28 Puff/Inhaler Aerp, 1 PUFF INH BID, (Reported) Tiotropium [place] (Spiriva Respimat) 2.5 Mcg/Act Spr, 2 INHALATION INH DAILY, (Reported) Scheduled PRN Albuterol Sulfate (Ventolin Hfa) 108 Mcg/Act Aer, 2 PUFFS INH Q4H PRN for SHORTNESS OF BREATH, (Reported) Ipratropium/Albuterol Sulfate (Iprat-Albut 0.5-3(2.5) mg/3 ml) 1 Christiano Christiano, 1 CHRISTIANO INH QID PRN for SHORTNESS OF BREATH, (Reported) Allergies Coded Allergies: No Known Drug Allergies (Verified Allergy, Unknown, 12/28/18) acetylcysteine (Verified Adverse Reaction, Intermediate, BRONCHOSPASM, 12/28/18) BOB ABDI MD Jan 02, 2019 15:14
[2019-01-02] MEDS ORDERED: FLUBLOK(EGG FREE)(QUAD)INFLUENZA VACC 0.5ML SYRINGE (90682)18YRS&OLDER IM ONE (18:00)
== END 2019-01-02 18:06 | disposition home health service (06) | DRG 140 ==
LOC: EDBD 18:09 → M ED 18:09 → M ED INP 21:04 → M ICU 12-29 00:29 → M PCU 12-30 11:03
PROVIDERS: ADMIT Internal Medicine; ATTEND Internal Medicine
DX: J44.1 Chronic obstructive pulmonary disease with (acute) exacerbation (principal); J96.21 Acute and chronic respiratory failure with hypoxia; Z99.81 Dependence on supplemental oxygen; J96.22 Acute and chronic respiratory failure with hypercapnia; E66.01 Morbid (severe) obesity due to excess calories; Z68.41 Body mass index [BMI] 40.0-44.9, adult; G62.9 Polyneuropathy, unspecified; F17.200 Nicotine dependence, unspecified, uncomplicated; M17.11 Unilateral primary osteoarthritis, right knee; K21.9 Gastro-esophageal reflux disease without esophagitis; E78.5 Hyperlipidemia, unspecified; D64.9 Anemia, unspecified; Z79.82 Long term (current) use of aspirin; Z79.899 Other long term (current) drug therapy; I10 Essential (primary) hypertension; F41.9 Anxiety disorder, unspecified

== ENCOUNTER 2019-02-02 20:21 | Inpatient (IN) | payer MEDICAID, OTHER ==
[~2019-02-02] VITALS: Ht 162.6 cm; Wt 100.0 kg
[~2019-02-02 20:21] MED LIST changes: +PRED20TA PO
[2019-02-02] MEDS ORDERED: IPRATROPIUM 0.5MG/ALBUTEROL 2.5MG INH SOL UD 3ML (DUONEB)(J7620) NEB ONE (20:45)
[2019-02-02 20:56] LABS: BASO % 0.2 % (0.0-1.0); EOS % 0.1 % (0.0-3.0); HEMATOCRIT 34.4 % (36.0-47.0); HEMOGLOBIN 10.2 g/dl (12.0-15.5); LYMPH # 1.4 10^3/uL (1.5-4.5); LYMPH % 14.2 % (24.0-44.0); MEAN CORPUSCULAR HEMOGLOBIN 25.6 pg (27.0-33.0); MEAN CORPUSCULAR HGB CONC 29.7 g/dl (32.0-36.5); MEAN CORPUSCULAR VOLUME 86.4 fl (80.0-96.0); MONO # 0.7 10^3/uL (0.0-0.8); NEUTROPHILS # 7.4 10^3/uL (1.8-7.7); NEUTROPHILS % 78.2 % (36.0-66.0); PLATELET COUNT, AUTOMATED 310 10^3/uL (150-450); RED BLOOD COUNT 3.98 10^6/uL (4.00-5.40); WHITE BLOOD COUNT 9.5 10^3/uL (4.0-10.0)
[2019-02-02] MEDS: DOCUSATE SODIUM 100 MG CAP PO SCH (21:00)
[2019-02-02] MEDS ORDERED: ALBUTEROL SULFATE 2.5 MG/0.5 ML INH NEB SOLN INH ONE (21:00)
[2019-02-02 21:26] LABS: ALBUMIN 3.2 GM/DL (3.2-5.2); ALT/SGPT 22 U/L (12-78); BILIRUBIN,DIRECT < 0.1 MG/DL (0.0-0.2); BILIRUBIN,TOTAL 0.2 MG/DL (0.2-1.0); BLOOD UREA NITROGEN 9 MG/DL (7-18); CALCIUM LEVEL 8.6 MG/DL (8.5-10.1); CARBON DIOXIDE LEVEL 42 MEQ/L (21-32); CHLORIDE LEVEL 90 MEQ/L (98-107); CPK CREATINE PHOSPHOKINASE 89 U/L (26-192); GLOMERULAR FILTRATION RATE > 60.0 (>51); GLUCOSE, FASTING 100 MG/DL (70-100); MB/CK RELATIVE INDEX 4.27 (< OR =4); POTASSIUM SERUM 4.7 MEQ/L (3.5-5.1); SODIUM LEVEL 137 MEQ/L (136-145); TOTAL PROTEIN 6.6 GM/DL (6.4-8.2); TROPONIN I < 0.02 NG/ML (< 0.10)
[2019-02-02 21:28] LABS: INFLUENZA A AMPLIFICATION NEGATIVE (NEGATIVE); INFLUENZA B AMPLIFICATION NEGATIVE (NEGATIVE)
--- NOTE | 2019-02-02 21:44 | REP ---
Clinical: Cough and dyspnea . Comparison: 12/28/2018 . Findings: The mediastinum and cardiac silhouette are stable and within normal limits for portable technique. The lung wilson are clear without acute consolidation, effusion, or pneumothorax. Skeletal structures are intact. Impression: No acute cardiopulmonary process appreciated. Electronically Signed by Luis Ware MD 02/02/2019 09:36 P
[2019-02-02 22:08] LABS: ABG BASE EXCESS 9.9 (-2.0-2.0); ABG HCO3 38.2 MEQ/L (22.0-26.0); ABG O2 SATURATION 94.8 % (95.0-99.0); ABG PARTIAL PRESSURE CO2 73.5 mmHg (35.0-45.0); ABG PARTIAL PRESSURE O2 75.3 mmHg (75.0-100.0); ABG STANDARD HCO3 33.6 MEQ/L (22.0-26.0); ABG TOTAL CO2 40.5 MEQ/L (22.0-29.0); ABG pH (ARTERIAL) 7.334 UNITS (7.350-7.450)
[2019-02-02] MEDS ORDERED: MOM 30ML SUSPENSION UDC PO PRN (23:15)
[2019-02-02] MEDS ORDERED: MAALOX 30 ML SUSP *UDC PO PRN (23:15)
--- NOTE | 2019-02-02 23:18 | HPEPDOC ---
General Date of Admission Date of Service: February 02, 2019 Chief Complaint The patient is a 58-year-old female admitted with a reason for visit of SOB. Source: Patient, RN/, Old records History of Present Illness Ms. Hung is a 58 years old woman with End Stage COPD on 4L home O2. She was recently admitted for Respiratory Failure a month ago. She presents to ER today with c/o of non-productive cough and SOB worsening over the past three days. She reports lung congestion, and inability to clear phlegm. David chest pain, fever, chills or other systemic problems. She was treated with Dexamethasone by EMS, and received nebulizer treatments in ER. During my visit pt was in mild resp distress, but able to talk and give history freely. Afebrile; hemodynamically stable. O2 sat 96% in 4L NC. ABG: pH 7.33, pCO2 73.5. CXR was normal. Pt noted to have 3+ chronic edema on both legs. Echo one year ago: normal LV and RV but elevated pulmonary artery pressure. Home Medications Scheduled Amitriptyline HCl (Amitriptyline HCl) 75 Mg Tab, 75 MG PO QHS, (Reported) Aspirin (Aspirin EC) 81 Mg Tab, 81 MG PO DAILY, (Reported) Atorvastatin Calcium (Atorvastatin Calcium) 20 Mg Tab, 20 MG PO QHS, (Reported) Azithromycin (Azithromycin) 500 Mg Tablet, 500 MG PO Q2D, (Reported) Docusate Sodium (Docusate Sodium) 100 Mg Cap, 100 MG PO BID, (Reported) Ergocalciferol (Vitamin D2) (Drisdol) 50,000 Unit Cap, 50,000 UNIT PO QWEEK, (Reported) SATURDAYS Furosemide (Furosemide) 40 Mg Tab, 40 MG PO DAILY, (Reported) Meloxicam (Meloxicam) 15 Mg Tab, 15 MG PO DAILY, (Reported) Montelukast Sodium (Singulair) 10 Mg Tab, 10 MG PO QHS, (Reported) Omeprazole (Omeprazole) 40 Mg Cap, 40 MG PO DAILY, (Reported) Salmeterol/Fluticasone (Advair 500-50 Diskus) 28 Puff/Inhaler Aerp, 1 PUFF INH BID, (Reported) Tiotropium E[place]ora (Spiriva Respimat) 2.5 Mcg/Act Spr, 2 INHALATION INH DAILY, (Reported) Scheduled PRN Albuterol Sulfate (Ventolin Hfa) 108 Mcg/Act Aer, 2 PUFFS INH Q4H PRN for SHORTNESS OF BREATH, (Reported) Ipratropium/Albuterol Sulfate (Iprat-Albut 0.5-3(2.5) mg/3 ml) 1 Margo Mrago, 3 ML INH QID PRN for SHORTNESS OF BREATH, (Reported) Allergies Coded Allergies: No Known Drug Allergies (Verified Allergy, Unknown, 12/28/18) acetylcysteine (Verified Adverse Reaction, Intermediate, BRONCHOSPASM, 12/28/18) Past Medical History Medical History Hyperlipidemia. Morbid obesity. Chronic hypoxic and hypercapnic respiratory failure secondary to end stage COPD, requires 4 liters supplemental oxygen. Nicotine dependence. Gastroesophageal reflux disease (GERD). Family History Significant Family History: No pertinent family hx Social History * Smoker: current smoker Alcohol: Denies Drugs: denies A-FIB/CHADSVASC A-FIB History Current/History of A-Fib/PAF?: No Review of Systems Constitutional: Denies: Chills, Fever ENT: Denies: Head Aches Skin: Denies: Rash, Lesions Pulmonary: Reports: Dyspnea, Cough Cardiovascular: Reports: Edema; Denies: Chest Pain Gastrointestinal: Denies: Nausea, Vomiting, Abdominal Pain, Diarrhea Genitourinary: Denies: Dysuria, Frequency Musculoskeletal: Denies: Neck Pain Neurological: Denies: Weakness, Numbness Psych: Reports: Mood Normal; Denies: Anxiety Physical Examination General Exam: Positive: Alert, Cooperative, Mild Distress Eye Exam: Positive: PERRLA ENT Exam: Positive: Atraumatic Neck Exam: Positive: Supple; Negative: JVD Chest Exam: Positive: Diminished (severely diminished air entry globally) Heart Exam: Positive: Rate Normal, Regular Rhythm Abdomen Exam: Positive: Normal bowel sounds, Soft; Negative: Tenderness Extremity Exam: Positive: Edema, Normal pulses Skin Exam: Positive: Nl turgor and temperature; Negative: Rash, Breakdown Neuro Exam: Positive: Normal Speech, Strength at 5/5 X4 ext Psych Exam: Positive: Mental status NL, Mood NL Vital Signs Vital Signs Date Time Temp Pulse Resp B/P (MAP) Pulse Ox O2 Delivery O2 Flow Rate FiO2 02/02/19 21:51 114 20 96 Nasal Cannula 4.0 02/02/19 21:45 157/72 (100) 02/02/19 20:39 98.4 Laboratory Data Labs 24H Laboratory Tests 2 02/02/19 20:50: Immature Granulocyte % (Auto) 0.3, White Blood Count 9.5, Red Blood Count 3.98L, Hemoglobin 10.2L, Hematocrit 34.4L, Mean Corpuscular Volume 86.4, Mean Corpuscular Hemoglobin 25.6L, Mean Corpuscular Hemoglobin Concent 29.7L, Red Cell Distribution Width 12.6, Platelet Count 310, Neutrophils (%) (Auto) 78.2H, Lymphocytes (%) (Auto) 14.2L, Monocytes (%) (Auto) 7.0H, Eosinophils (%) (Auto) 0.1, Basophils (%) (Auto) 0.2, Neutrophils # (Auto) 7.4, Lymphocytes # (Auto) 1.4L, Monocytes # (Auto) 0.7, Eosinophils # (Auto) 0.0, Basophils # (Auto) 0.0, Nucleated Red Blood Cells % (auto) 0.0, Anion Gap 5L, Glomerular Filtration Rate > 60.0, Lactic Acid Level 1.2, Calcium Level 8.6, Aspartate Amino Transf (AST/SGOT) 25, Alanine Aminotransferase (ALT/SGPT) 22, Alkaline Phosphatase 102, Total Bilirubin 0.2, Direct Bilirubin < 0.1, Total Creatine Kinase 89, Creatine Kinase MB 4.0H, Creatine Kinase MB Relative Index 4.27H, Troponin I < 0.02, Total Protein 6.6, Albumin 3.2, Albumin/Globulin Ratio 0.94L, Influenza Type A (RT-PCR) NEGATIVE, Influenza Type B (RT-PCR) NEGATIVE 02/02/19 22:00: Blood Gas Bicarbonate Standard 33.6H, Arterial Blood pH 7.334L, Arterial Blood Partial Pressure CO2 73.5*H, Arterial Blood Partial Pressure O2 75.3, Arterial Blood Total CO2 40.5H, Arterial Blood HCO3 38.2H, Arterial Blood Base Excess 9.9H, Arterial Blood Oxygen Saturation 94.8L CBC/BMP Laboratory Tests 02/02/19 20:50 Red Blood Count 3.98 L, Mean Corpuscular Volume 86.4, Mean Corpuscular Hemoglobin 25.6 L, Mean Corpuscular Hemoglobin Concent 29.7 L, Red Cell Distribution Width 12.6, Neutrophils (%) (Auto) 78.2 H, Lymphocytes (%) (Auto) 14.2 L, Monocytes (%) (Auto) 7.0 H, Eosinophils (%) (Auto) 0.1, Basophils (%) (Auto) 0.2, Neutrophils # (Auto) 7.4, Lymphocytes # (Auto) 1.4 L, Monocytes # (Auto) 0.7, Eosinophils # (Auto) 0.0, Basophils # (Auto) 0.0 Microbiology Microbiology 02/02/19 Blood Culture, Received Pending 02/02/19 Blood Culture, Received Pending Assessment/Plan Acute on Chronic Hypercapnic Respiratory Failure, COPD Exacerbation, Signs of Chronic Cor Pulmonale - Admit to inpatient - IV Steroid, Nebs, Doxy - O2 need is at baseline; continue with 3-4L O2 by NC - Smoking counseling; Nicotine patch - Lasix oral - Echo Continue home meds for other chronic illness. Plan / VTE VTE Prophylaxis Ordered?: Yes Plan Anticipated Discharge: ALEC Dent MD February 02, 2019 23:18
[2019-02-02] MEDS ORDERED: BENZONATATE 100 MG CAP PO ONE (23:30)
[2019-02-02] MEDS: IPRATROPIUM 0.5MG/ALBUTEROL 2.5MG INH SOL UD 3ML (DUONEB)(J7620) NEB PRN (23:51)
[2019-02-03] MEDS: methylPREDNISolone INJ 125 MG/2 ML VIAL (J2930) IV SCH ×3 (00:34→17:21)
[2019-02-03] MEDS ORDERED: MONTELUKAST 10 MG TAB PO ONE (00:45)
[2019-02-03] MEDS ORDERED: AMITRIPTYLINE 25 MG TAB PO ONE (00:45)
[2019-02-03] MEDS ORDERED: ATORVASTATIN 20 MG TAB PO ONE (00:45)
[2019-02-03 02:14] VITALS: BP 152/80
[2019-02-03] MEDS: IPRATROPIUM 0.5MG/ALBUTEROL 2.5MG INH SOL UD 3ML (DUONEB)(J7620) NEB SCH ×4 (04:31→23:45)
[2019-02-03 06:00] VITALS: BP 125/64
[2019-02-03 06:04] LABS: HEMATOCRIT 34.2 % (36.0-47.0); HEMOGLOBIN 10.1 g/dl (12.0-15.5); MEAN CORPUSCULAR HEMOGLOBIN 25.3 pg (27.0-33.0); MEAN CORPUSCULAR HGB CONC 29.5 g/dl (32.0-36.5); MEAN CORPUSCULAR VOLUME 85.5 fl (80.0-96.0); PLATELET COUNT, AUTOMATED 297 10^3/uL (150-450); WHITE BLOOD COUNT 8.1 10^3/uL (4.0-10.0)
--- NOTE | 2019-02-03 06:09 | ECGEPIP ---
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
[2019-02-03 06:24] LABS: BLOOD UREA NITROGEN 9 MG/DL (7-18); CALCIUM LEVEL 9.7 MG/DL (8.5-10.1); CARBON DIOXIDE LEVEL 43 MEQ/L (21-32); CHLORIDE LEVEL 89 MEQ/L (98-107); CREATININE FOR GFR 0.48 MG/DL (0.55-1.30); GLOMERULAR FILTRATION RATE > 60.0 (>51); GLUCOSE, FASTING 156 MG/DL (70-100); POTASSIUM SERUM 3.9 MEQ/L (3.5-5.1); SODIUM LEVEL 134 MEQ/L (136-145)
[2019-02-03] MEDS: HEPARIN SOD (PORCINE) 5000 UNITS/ML VIAL SC SCH ×2 (08:55→21:13)
[2019-02-03] MEDS: NICOTINE 14 MG/24 HR TRANSDERMAL TD SCH (08:56)
[2019-02-03] MEDS: OMEPRAZOLE 20 MG CAP PO SCH (08:57)
[2019-02-03] MEDS: BENZONATATE 100 MG CAP PO SCH ×3 (08:58→21:13)
[2019-02-03] MEDS: ASPIRIN 81 MG ENTERIC TAB PO SCH (08:58)
[2019-02-03] MEDS: DOXYCYCLINE HYCLATE 100 MG TAB PO SCH ×2 (08:58→21:13)
[2019-02-03] MEDS: DOCUSATE SODIUM 100 MG CAP PO SCH ×2 (08:59→21:13)
[2019-02-03] MEDS ORDERED: PANTOPRAZOLE 40MG TAB (PROTONIX) PO SCH (09:00)
[2019-02-03] MEDS ORDERED: FUROSEMIDE 40 MG TAB PO SCH (09:00)
--- NOTE | 2019-02-03 12:05 | IPNPDOC ---
Date Seen The patient was seen on 02/03/19. Progress Note SUBJECTIVE: Patient tells me she continues to experience shortness of breath even at rest she tells me that when she gets up to move her oxygen saturation dropped significantly so that she has felt this way for several days with increased cough. She tells me that she has not felt well and been able to breathe well enough to even smoke for the last 3 days otherwise patient denies chest pain, nausea, vomiting, fevers, chills or sick contacts OBJECTIVE PHYSICAL EXAMINATION: VITAL SIGNS: Please see below. GENERAL: unkept disheveled malodorous morbidly obese female sits up too great and he is entering the room awake alert oriented speaking in complete sentences no acute distress history muscle use mildly tachypnic HEENT: Moist mucous membranes no elevation and CVP CARDIOVASCULAR: S1 S2 tachycardic no additional heart sounds appreciated. RESPIRATORY: Diffuse expiratory wheeze prolonged expiration phase barrel chested. ABDOMINAL: Grossly obese with malodorous pannus Bowel sounds present abdomen soft and nontender EXTREMITIES: No clubbing cyanosis or edema NEUROLOGICAL: Spontaneously moves all 4 extremities cranial 2 through 12 grossly intact no gross focal deficits appreciated PSYCHOLOGICAL: Appropriate LABORATORY DATA, MICROBIOLOGY: Please see below. IMAGING STUDIES: Chest x-ray:No acute cardiopulmonary process appreciated. DVT prophylaxis ordered?: Heparin every 12 ASSESSMENT AND PLAN: This is a 58-year-old female with shortness of breath. PROBLEMS: 1. Shortness of breath with chronic hypercarbic respiratory failure as well as chronic hypoxic respiratory failure: Mildly improved at this time. Known history of COPD with FEV1/FVC ratio 43% She does appear to be saturating 98% on 3 L is entered the room and she complains of shortness of breath. I'm concerned about over oxygenation and turn down her oxygen and shortness of staff to titrate for sats 88-92 even if this means decreasing the amount of oxygen she is receiving. She is tachycardic which may be contributing as well possibly related to nebulizer treatments I will check an EKG. Patient normally follows with Dr. Noe of pulmonary, in terms of her respiratory baseline she does not appear to be far from his baseline previously document of records she was most recently admitted for 2419 and discharged 01/02/2019. They are concerned for some underlying obstructive sleep apnea for which may not be adequately being treated with Reglan should have close outpatient follow-up pulmonary clinic regarding this. She is actively smoking. Continue with IV steroids she is currently on doxycycline for antibiotics she does not appear grossly septic we'll check a pro-calcitonin follow-up cultures and discontinue as appropriate 2. Tobacco abuse: Cessation counseling provided. Continue with NicoDerm 3. Morbid obesity: Complicating care 4. Peripheral neuropathy: Continue gabapentin 5. Chronic anemia: Stable. 6. Gastroesophageal reflux disease: Continue with omeprazole and discontinue pantoprazole 7. Dyslipidemia: Continue statin 8. Anxiety: Continue with amitriptyline 9. Seasonal allergies continue with Singulair DISPOSITION: Pending clinical improvement as well as PTOT. VS, I&O, 24H, Fishbone Vital Signs/I&O Vital Signs Date Time Temp Pulse Resp B/P (MAP) Pulse Ox O2 Delivery O2 Flow Rate FiO2 02/03/19 09:00 2.0 02/03/19 06:00 97.2 109 20 125/64 (84) 97 02/03/19 01:37 Nasal Cannula I&O- Last 24 Hours up to 6 AM 02/03/19 06:00 Intake Total 300 ml Output Total 0 ml Balance 300 ml Laboratory Data 24H LABS Laboratory Tests 2 02/02/19 20:50: Immature Granulocyte % (Auto) 0.3, White Blood Count 9.5, Red Blood Count 3.98L, Hemoglobin 10.2L, Hematocrit 34.4L, Mean Corpuscular Volume 86.4, Mean Corpuscular Hemoglobin 25.6L, Mean Corpuscular Hemoglobin Concent 29.7L, Red Cell Distribution Width 12.6, Platelet Count 310, Neutrophils (%) (Auto) 78.2H, Lymphocytes (%) (Auto) 14.2L, Monocytes (%) (Auto) 7.0H, Eosinophils (%) (Auto) 0.1, Basophils (%) (Auto) 0.2, Neutrophils # (Auto) 7.4, Lymphocytes # (Auto) 1.4L, Monocytes # (Auto) 0.7, Eosinophils # (Auto) 0.0, Basophils # (Auto) 0.0, Nucleated Red Blood Cells % (auto) 0.0, Anion Gap 5L, Glomerular Filtration Rate > 60.0, Lactic Acid Level 1.2, Calcium Level 8.6, Aspartate Amino Transf (AST/SGOT) 25, Alanine Aminotransferase (ALT/SGPT) 22, Alkaline Phosphatase 102, Total Bilirubin 0.2, Direct Bilirubin < 0.1, Total Creatine Kinase 89, Creatine Kinase MB 4.0H, Creatine Kinase MB Relative Index 4.27H, Troponin I < 0.02, Total Protein 6.6, Albumin 3.2, Albumin/Globulin Ratio 0.94L, Influenza Type A (RT-PCR) NEGATIVE, Influenza Type B (RT-PCR) NEGATIVE 02/02/19 22:00: Blood Gas Bicarbonate Standard 33.6H, Arterial Blood pH 7.334L, Arterial Blood Partial Pressure CO2 73.5*H, Arterial Blood Partial Pressure O2 75.3, Arterial Blood Total CO2 40.5H, Arterial Blood HCO3 38.2H, Arterial Blood Base Excess 9.9H, Arterial Blood Oxygen Saturation 94.8L 02/03/19 05:31: Nucleated Red Blood Cells % (auto) 0.0, Anion Gap 2L, Glomerular Filtration Rate > 60.0, Calcium Level 9.7, Blood Urea Nitrogen 9, Creatinine 0.48L, Sodium Level 134L, Potassium Level 3.9, Chloride Level 89L, Carbon Dioxide Level 43H CBC/BMP Laboratory Tests 02/02/19 20:50 Red Blood Count 3.98 L, Mean Corpuscular Volume 86.4, Mean Corpuscular Hemoglobin 25.6 L, Mean Corpuscular Hemoglobin Concent 29.7 L, Red Cell Distribution Width 12.6, Neutrophils (%) (Auto) 78.2 H, Lymphocytes (%) (Auto) 14.2 L, Monocytes (%) (Auto) 7.0 H, Eosinophils (%) (Auto) 0.1, Basophils (%) (Auto) 0.2, Neutrophils # (Auto) 7.4, Lymphocytes # (Auto) 1.4 L, Monocytes # (Auto) 0.7, Eosinophils # (Auto) 0.0, Basophils # (Auto) 0.0 02/03/19 05:31 Red Blood Count 4.00, Mean Corpuscular Volume 85.5, Mean Corpuscular Hemoglobin 25.3 L, Mean Corpuscular Hemoglobin Concent 29.5 L, Red Cell Distribution Width 12.5, Calcium Level 9.7 Microbiology Microbiology 02/02/19 Blood Culture, Received Pending 02/02/19 Blood Culture, Received Pending 02/03/19 Respiratory Virus Panel (PCR) (ERLINDA), Ordered Pending BAUER,NAZEEL MD February 03, 2019 12:05
[2019-02-03 14:38] VITALS: BP 149/81
--- NOTE | 2019-02-03 16:38 | ECGEPIP ---
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
[2019-02-03] MEDS: MONTELUKAST 10 MG TAB PO SCH (21:12)
[2019-02-03] MEDS: ATORVASTATIN 20 MG TAB PO SCH (21:13)
[2019-02-03] MEDS: AMITRIPTYLINE 25 MG TAB PO SCH (21:13)
--- NOTE | 2019-02-03 21:46 | REP ---
Clinical: Left lower quadrant pain. Technique: Two supine views of the abdomen and pelvis. Findings: Bowel gas pattern is nonspecific and without evidence for obstruction or perforation. No organomegaly. No abnormal calcifications. Skeletal structures demonstrate age-related changes. Impression: Nonspecific bowel gas pattern. Electronically Signed by Luis Ware MD 02/03/2019 09:37 P
[2019-02-03 22:00] VITALS: BP 140/83
[2019-02-04] MEDS: methylPREDNISolone INJ 125 MG/2 ML VIAL (J2930) IV SCH ×3 (00:14→16:42)
[2019-02-04 02:43] VITALS: O2SAT 97
[2019-02-04] MEDS: IPRATROPIUM 0.5MG/ALBUTEROL 2.5MG INH SOL UD 3ML (DUONEB)(J7620) NEB PRN (02:43)
[2019-02-04 06:00] VITALS: BP 135/72
[2019-02-04 06:42] LABS: HEMATOCRIT 33.7 % (36.0-47.0); HEMOGLOBIN 9.9 g/dl (12.0-15.5); MEAN CORPUSCULAR HEMOGLOBIN 25.6 pg (27.0-33.0); MEAN CORPUSCULAR HGB CONC 29.4 g/dl (32.0-36.5); MEAN CORPUSCULAR VOLUME 87.3 fl (80.0-96.0); PLATELET COUNT, AUTOMATED 303 10^3/uL (150-450); RED BLOOD COUNT 3.86 10^6/uL (4.00-5.40)
[2019-02-04 07:00] LABS: BLOOD UREA NITROGEN 13 MG/DL (7-18); CALCIUM LEVEL 9.2 MG/DL (8.5-10.1); CARBON DIOXIDE LEVEL 42 MEQ/L (21-32); CHLORIDE LEVEL 91 MEQ/L (98-107); CREATININE FOR GFR 0.42 MG/DL (0.55-1.30); GLOMERULAR FILTRATION RATE > 60.0 (>51); GLUCOSE, FASTING 147 MG/DL (70-100); SODIUM LEVEL 136 MEQ/L (136-145)
[2019-02-04] MEDS: IPRATROPIUM 0.5MG/ALBUTEROL 2.5MG INH SOL UD 3ML (DUONEB)(J7620) NEB SCH ×3 (07:13→23:36)
[2019-02-04 08:45] VITALS: BP 118/84
--- NOTE | 2019-02-04 09:45 | IPNPDOC ---
Date Seen The patient was seen on 02/04/19. Progress Note SUBJECTIVE: Patient tells me she continues to experience shortness of breath she tells me it is better in that she is not short of breath at rest but walking to the bathroom she is quite winded. She complains that she is tremulous and this sometimes happen when she is retaining CO2. The patient also complains that she had difficulty with urination overnight that she was able to urinate quite well yesterday throughout the day. She denies any abdominal pain at this time. Otherwise patient denies chest pain, nausea, vomiting, fevers, chills or sick contacts OBJECTIVE PHYSICAL EXAMINATION: VITAL SIGNS: Please see below. GENERAL: unkept disheveled morbidly obese female sits up too great me as I enter the room. She is awake alert oriented speaking in complete sentences with some mild breathlessness mildly tachypnic HEENT: Moist mucous membranes some elevation in CVP but difficult to assess secondary to body habitus CARDIOVASCULAR: S1 S2 tachycardic no additional heart sounds appreciated. RESPIRATORY: Diffuse expiratory wheeze prolonged expiration phase barrel chested. No audible rales ABDOMINAL: Grossly obese with Bowel sounds present abdomen soft and nontender EXTREMITIES: No clubbing cyanosis she does have 1-2+ edema bilaterally today NEUROLOGICAL: Spontaneously moves all 4 extremities cranial 2 through 12 grossly intact no gross focal deficits appreciated PSYCHOLOGICAL: Appropriate LABORATORY DATA, MICROBIOLOGY: Please see below. IMAGING STUDIES: Chest x-ray:No acute cardiopulmonary process appreciated. Abdominal x-ray:Nonspecific bowel gas pattern. DVT prophylaxis ordered?: Heparin every 12 ASSESSMENT AND PLAN: This is a 58-year-old female with shortness of breath. PROBLEMS: 1. Shortness of breath with chronic hypercarbic respiratory failure as well as chronic hypoxic respiratory failure: It appears as though she is satting 100% on 4 L while at rest lying in bed but even just sitting up in bed she desaturates to 90% on 4 L I suspect that with even minimal activity of a few steps she would desaturate further. I did a lengthy discussion with nursing staff bedside this morning we will make her best effort to titrate her for 88-92 given her CO2 retention we certainly do not want to over oxygenate however is quite challenging given that she over oxygenates at rest and with even the slightest bit of activity she quickly desaturates. She has known COPD with FEV1/FVC ratio 43% Patient normally follows with Dr. Noe of pulmonary, in terms of her respiratory baseline she does not appear to be far from his baseline previously document in records she was most recently admitted for similar episode of shortness of breath. I do have concern for some underlying obstructive sleep apnea which may not have been diagnosed yet I think she would benefit greatly from close outpatient follow-up pulmonary clinic regarding this with a sleep study. She is actively smoking cessation counseling provided at great length once again today. Continue with IV steroids she is currently on doxycycline for antibiotics she does not appear grossly septic we'll follow-up a pro-calcitonin follow-up cultures and discontinue as appropriate. She does have some fluid retention today I will provide her with IV Lasix check a chest x-ray as well as an echocardiogram as her do not have one within the last several months 2. Tobacco abuse: Cessation counseling provided. Continue with NicoDerm 3. Morbid obesity: Complicating care 4. Peripheral neuropathy: Continue gabapentin 5. Chronic anemia: Stable. 6. Gastroesophageal reflux disease: Continue with omeprazole 7. Dyslipidemia: Continue statin 8. Anxiety: Continue with amitriptyline I would avoid benzodiazepines given her tenuous respiratory status 9. Seasonal allergies continue with Singulair 10. Dysuria: The patient tells me that prior to her hospitalization she was going to the bathroom to urinate more frequently. She also tells me that last night she had difficulty urinating, she is tachycardic I will check a UA with reflex urine culture DISPOSITION: Pending clinical improvement echocardiogram optimization of volume status as well as PTOT. VS, I&O, 24H, Fishbone Vital Signs/I&O Vital Signs Date Time Temp Pulse Resp B/P (MAP) Pulse Ox O2 Delivery O2 Flow Rate FiO2 02/04/19 06:00 98.0 107 20 135/72 (93) 99 4.0 02/04/19 02:43 Nasal Cannula I&O- Last 24 Hours up to 6 AM 02/04/19 06:00 Intake Total 1380 ml Output Total 1685 ml Balance -305 ml Laboratory Data 24H LABS Laboratory Tests 2 02/04/19 05:46: Nucleated Red Blood Cells % (auto) 0.0, Anion Gap 3L, Glomerular Filtration Rate > 60.0, Blood Urea Nitrogen 13, Creatinine 0.42L, Sodium Level 136, Potassium Level 4.0, Chloride Level 91L, Carbon Dioxide Level 42H, Calcium Level 9.2 CBC/BMP Laboratory Tests 02/04/19 05:46 Red Blood Count 3.86 L, Mean Corpuscular Volume 87.3, Mean Corpuscular Hemoglobin 25.6 L, Mean Corpuscular Hemoglobin Concent 29.4 L, Red Cell Dist ribution Width 12.6, Calcium Level 9.2 Microbiology Microbiology 02/02/19 Blood Culture - Preliminary, Resulted No growth after 24 hours . All specim... 02/02/19 Blood Culture - Preliminary, Resulted No growth after 24 hours . All specim... 02/03/19 Respiratory Virus Panel (PCR) (ERLINDA) - Final, Complete ABI BAUER MD Feb 04, 2019 09:45
[2019-02-04 09:48] LABS: ABG BASE EXCESS 16.6 (-2.0-2.0); ABG O2 SATURATION 98.1 % (95.0-99.0); ABG PARTIAL PRESSURE O2 102.5 mmHg (75.0-100.0); ABG STANDARD HCO3 40.6 MEQ/L (22.0-26.0); ABG TOTAL CO2 46.1 MEQ/L (22.0-29.0)
[2019-02-04 09:49] LABS: ABG PARTIAL PRESSURE CO2 69.4 mmHg (35.0-45.0)
--- NOTE | 2019-02-04 09:55 | REP ---
Clinical: Pulmonary edema . Comparison: 01/16/2019 . Findings: The mediastinum and cardiac silhouette are stable and cardiomegaly is again suggested. The lung wilson are clear without acute consolidation, effusion, or pneumothorax. Skeletal structures are intact. Impression: No acute cardiopulmonary process appreciated. Electronically Signed by Luis Ware MD 02/04/2019 09:46 A
[2019-02-04] MEDS: NICOTINE 14 MG/24 HR TRANSDERMAL TD SCH (09:59)
[2019-02-04] MEDS: HEPARIN SOD (PORCINE) 5000 UNITS/ML VIAL SC SCH ×2 (10:00→21:54)
[2019-02-04] MEDS: FUROSEMIDE 100 MG/10 ML VIAL (J1940) IV SCH ×2 (10:01→16:42)
[2019-02-04] MEDS: BENZONATATE 100 MG CAP PO SCH ×3 (10:01→21:55)
[2019-02-04] MEDS: ASPIRIN 81 MG ENTERIC TAB PO SCH (10:02)
[2019-02-04] MEDS: OMEPRAZOLE 20 MG CAP PO SCH (10:02)
[2019-02-04] MEDS: DOXYCYCLINE HYCLATE 100 MG TAB PO SCH ×2 (10:02→21:55)
[2019-02-04] MEDS: DOCUSATE SODIUM 100 MG CAP PO SCH ×2 (10:02→21:55)
[2019-02-04] MEDS ORDERED: hydrOXYzine 10 MG TAB PO ONE (10:45)
[2019-02-04 12:00] VITALS: BP 143/87
[2019-02-04] MEDS: ACETAMINOPHEN TAB 650MG DOSE (2X325MG) PO PRN (16:55)
[2019-02-04] MEDS: MONTELUKAST 10 MG TAB PO SCH (21:54)
[2019-02-04] MEDS: AMITRIPTYLINE 25 MG TAB PO SCH (21:55)
[2019-02-04] MEDS: ATORVASTATIN 20 MG TAB PO SCH (21:55)
[2019-02-04 22:00] VITALS: BP 159/89
[2019-02-04 23:36] VITALS: O2SAT 98
[2019-02-05 05:53] LABS: HEMATOCRIT 32.9 % (36.0-47.0); HEMOGLOBIN 9.8 g/dl (12.0-15.5); MEAN CORPUSCULAR HGB CONC 29.8 g/dl (32.0-36.5); MEAN CORPUSCULAR VOLUME 87.3 fl (80.0-96.0); PLATELET COUNT, AUTOMATED 302 10^3/uL (150-450); RED BLOOD COUNT 3.77 10^6/uL (4.00-5.40); WHITE BLOOD COUNT 10.2 10^3/uL (4.0-10.0)
[2019-02-05 06:00] VITALS: BP 139/76
[2019-02-05] MEDS: IPRATROPIUM 0.5MG/ALBUTEROL 2.5MG INH SOL UD 3ML (DUONEB)(J7620) NEB SCH ×3 (06:00→23:32)
[2019-02-05 06:30] LABS: CARBON DIOXIDE LEVEL 46 MEQ/L (21-32); CHLORIDE LEVEL 90 MEQ/L (98-107); CREATININE FOR GFR 0.57 MG/DL (0.55-1.30); GLOMERULAR FILTRATION RATE > 60.0 (>51); GLUCOSE, FASTING 176 MG/DL (70-100); POTASSIUM SERUM 3.6 MEQ/L (3.5-5.1); SODIUM LEVEL 136 MEQ/L (136-145)
[2019-02-05 06:31] LABS: BLOOD UREA NITROGEN 22 MG/DL (7-18)
[2019-02-05] MEDS: methylPREDNISolone INJ 125 MG/2 ML VIAL (J2930) IV SCH ×4 (09:39→23:48)
[2019-02-05] MEDS: FUROSEMIDE 40 MG TAB PO SCH (09:39)
[2019-02-05] MEDS: HEPARIN SOD (PORCINE) 5000 UNITS/ML VIAL SC SCH ×2 (09:39→21:05)
[2019-02-05] MEDS: DOCUSATE SODIUM 100 MG CAP PO SCH ×2 (09:40→21:04)
[2019-02-05] MEDS: NICOTINE 14 MG/24 HR TRANSDERMAL TD SCH (09:40)
[2019-02-05] MEDS: BENZONATATE 100 MG CAP PO SCH ×3 (09:41→21:04)
[2019-02-05] MEDS: ASPIRIN 81 MG ENTERIC TAB PO SCH (09:41)
[2019-02-05] MEDS: OMEPRAZOLE 20 MG CAP PO SCH (09:41)
--- NOTE | 2019-02-05 10:05 | ECHO ---
DATE OF PROCEDURE: 02/04/2019 REFERRING PHYSICIAN: Dr. Constantine Garcia INDICATION: Edema. HEIGHT 163 cm WEIGHT 100 kg DIMENSIONS: IVS: 1.4 LV: 4.8 LVPW: 1.4 LA: 3.7 Aorta: 3.4 IVC: 2.3 Mitral E wave velocity: 130 E prime septal: 14.6 E prime lateral: 14.5 Left atrium volume index: 21 mL/m2 FINDINGS: The study is of fair technical quality. The patient is in sinus tachycardia with heart rate between 110 and 120 beats per minute. Left ventricle is normal size. Mild to moderate left ventricular hypertrophy is present. I do not appreciate any distinct segmental wall motion abnormalities but overall left ventricular systolic function appears to be borderline reduced. Computer calculated LVEF was 49% which seems plausible. Right ventricle is normal size. Left atrium is normal size. Right atrium is probably normal size, even though visualization was limited. Aortic valve is mildly sclerotic but it has three cusps and only minimal restriction of mobility based on 2-D imaging. Mitral valve appears normal. Tricuspid valve also appears normal. Pulmonic valve was not well seen. There is pericardial fat pad and trivial effusion adjacent to the right atrium without any signs of cardiac compression. Inferior vena cava is dilated and there is minimal collapse with respiration indicative of likely high central venous pressure. Aortic root is normal. Aortic arch and abdominal aorta were poorly seen. Doppler interrogation of aortic valve reveals trivial stenosis (mean gradient 10 mmHg) and mild insufficiency. There is mild mitral and mild tricuspid insufficiency. Calculated pulmonary artery pressure is in mid to high 50s corresponding to moderately severe pulmonary hypertension. Evaluation of diastolic function is inconclusive due to tachycardia and resulting summation pattern on mitral inflow, but tissue Doppler velocities of mitral annulus are relatively preserved. CONCLUSIONS: 1. Study is of rather limited technical quality. 2. Normal LV size with mild to moderate left ventricular hypertrophy and mildly reduced LV systolic function, estimated EF around 50%. 3. Aortic sclerosis with trivial stenosis and mild insufficiency. 4. Mild mitral and tricuspid insufficiency. 5. Elevated central venous pressure and probably moderately severe pulmonary hypertension. 6. Trivial pericardial effusion. COMMENTS SBE prophylaxis is not recommended. MTDD
--- NOTE | 2019-02-05 10:08 | IPNPDOC ---
Date Seen The patient was seen on 02/05/19. Progress Note SUBJECTIVE: Overnight the patient's mother presented to the medical intensive care unit critically ill. The family is currently undergoing conversations to terminally extubate with critical care [employer] consultant. The patient tells me she has been much of her time with her family yesterday evening and did not sleep well secondary to this. He tells me that her breathing is otherwise unchanged and ashli t she was able to urinate without any difficulty. Otherwise patient denies chest pain, nausea, vomiting, fevers, chills or sick contacts OBJECTIVE PHYSICAL EXAMINATION: VITAL SIGNS: Please see below. GENERAL: unkept disheveled morbidly obese female sitting in a wheelchair. She is awake alert oriented speaking in complete sentences today she does not appear to be in any acute distress HEENT: Moist mucous membranes no appreciable elevation in CVP but difficult to assess secondary to body habitus CARDIOVASCULAR: S1 S2 mildly tachycardic no additional heart sounds appreciated. RESPIRATORY: Diffuse expiratory wheeze prolonged expiration phase barrel chested. No audible rales ABDOMINAL: Grossly obese with Bowel sounds present abdomen soft and nontender EXTREMITIES: No clubbing cyanosis she does have trace edema bilaterally today NEUROLOGICAL: Spontaneously moves all 4 extremities cranial 2 through 12 grossly intact no gross focal deficits appreciated PSYCHOLOGICAL: Appropriate LABORATORY DATA, MICROBIOLOGY: Please see below. IMAGING STUDIES: Chest x-ray:No acute cardiopulmonary process appreciated. Abdominal x-ray:Nonspecific bowel gas pattern. ECHOCARDIOGRAM: Ordered and pending DVT prophylaxis ordered?: Heparin every 12 ASSESSMENT AND PLAN: This is a 58-year-old female with shortness of breath. PROBLEMS: 1. Shortness of breath with combined chronic hypercarbic hypoxic respiratory f ailure: Her baseline she requires 4 L of O2. At rest she tends to saturate greater than 95% on this however simply speaking or sitting up in bed will cause her to desaturate to 88-92 on these 4 L and I suspect with minimal ambulation she desaturates even further. At her baseline she is able to take only several steps on this oxygen and become significantly winded. She uses a walker at baseline and never walks more than a few steps before becoming breathless. She continues to smoke cigarettes. She is currently been undergoing therapy for end- stage COPD with acute exacerbation IV steroids and nebulizer treatments. She's had no evidence of infection with cultures negative and unremarkable pro-c alcitonin and as such the doxycycline she was empirically started on has been discontinued. She is making slow and subtle progress. I suspect she may be approaching her baseline. I will have physical therapy work with her and see if she is able to take those minimal steps she can at her baseline, the fact that she has continued to smoke despite frequent hospitalizations for shortness of breath I did have a julissa was discussed with her this morning that this may be her new baseline and she perhaps may not improve beyond this. She normally follows with Dr. Noe of pulmonary critical care any outpatient setting. I think she would benefit greatly from an outpatient sleep study and possibly CPAP versus BiPAP at night if indicated. She did have some excess fluid yesterday and she did receive some intravenous Lasix her metabolic status is improved today her Estrace status is unchanged however. 2. Tobacco abuse: Cessation counseling provided. Continue with NicoDerlouisa. I did have a julissa discussion and inform her that her COPD appears to be approaching end-stage that if she continues to smoke she likely has not want to live 3. Morbid obesity: Complicating care 4. Peripheral neuropathy: Continue gabapentin 5. Chronic anemia: Stable. 6. Gastroesophageal reflux disease: Continue with omeprazole 7. Dyslipidemia: Continue statin 8. Anxiety: Continue with amitriptyline I would avoid benzodiazepines given her tenuous respiratory status 9. Seasonal allergies continue with Singulair 10. Dysuria: Resolved, I did order a UA with urine culture which is yet to be collected. Her pro-calcitonin is unremarkable my suspicion for urinary tract infection is lower at this time 11. Fluid overload: She did have excess fluid yesterday I did provide her with IV diuresis her volume status is improved checking an echocardiogram to assess the function of her heart. I would not be surprised at all with some diastolic dysfunction. Given that her BUN did rise today and she has a chronic compensa tory metabolic alkalosis I hesitate for any further aggressive diuresis and we'll transition her back to her home Lasix dosing DISPOSITION: Pending echocardiogram as well as PTOT. Long-term prognosis is poor VS, I&O, 24H, Fishbone Vital Signs/I&O Vital Signs Date Time Temp Pulse Resp B/P (MAP) Pulse Ox O2 Delivery O2 Flow Rate FiO2 02/05/19 06:00 97.6 102 22 139/76 (97) 94 3.0 02/04/19 23:36 Nasal Cannula I&O- Last 24 Hours up to 6 AM 02/05/19 06:00 Intake Total 2400 ml Output Total 1525 ml Balance 875 ml Laboratory Data 24H LABS Laboratory Tests 2 02/05/19 05:20: Nucleated Red Blood Cells % (auto) 0.0, Anion Gap 0L, Glomerular Filtration Rate > 60.0, Blood Urea Nitrogen 22#H, Creatinine 0.57, Sodium Level 136, Potassium Level 3.6, Chloride Level 90L, Carbon Dioxide Level 46H, Calcium Level 9.0 CBC/BMP Laboratory Tests 02/05/19 05:20 Red Blood Count 3.77 L, Mean Corpuscular Volume 87.3, Mean Corpuscular Hemoglobin 26.0 L, Mean Corpuscular Hemoglobin Concent 29.8 L, Red Cell Distribution Width 12.6, Calcium Level 9.0 Microbiology Microbiology 02/02/19 Blood Culture - Preliminary, Resulted No Growth after 48 hours. All Specime... 02/02/19 Blood Culture - Preliminary, Resulted No Growth after 48 hours. All Specime... 02/03/19 Respiratory Virus Panel (PCR) ([facility]) - Final, Complete ABI BAUER MD Feb 05, 2019 10:08
[2019-02-05] MEDS: ACETAMINOPHEN TAB 650MG DOSE (2X325MG) PO PRN ×2 (12:53→21:04)
[2019-02-05 14:00] VITALS: BP 155/92
[2019-02-05] MEDS: AMITRIPTYLINE 25 MG TAB PO SCH (21:04)
[2019-02-05] MEDS: ATORVASTATIN 20 MG TAB PO SCH (21:04)
[2019-02-05] MEDS: MONTELUKAST 10 MG TAB PO SCH (21:04)
[2019-02-05 22:00] VITALS: BP 151/94
[2019-02-06 06:00] VITALS: BP 134/68
[2019-02-06 06:24] LABS: HEMATOCRIT 32.9 % (36.0-47.0); HEMOGLOBIN 9.7 g/dl (12.0-15.5); MEAN CORPUSCULAR HEMOGLOBIN 24.9 pg (27.0-33.0); MEAN CORPUSCULAR HGB CONC 29.5 g/dl (32.0-36.5); MEAN CORPUSCULAR VOLUME 84.4 fl (80.0-96.0); PLATELET COUNT, AUTOMATED 279 10^3/uL (150-450); WHITE BLOOD COUNT 8.8 10^3/uL (4.0-10.0)
[2019-02-06 06:37] LABS: BLOOD UREA NITROGEN 15 MG/DL (7-18); CALCIUM LEVEL 8.9 MG/DL (8.5-10.1); CARBON DIOXIDE LEVEL 44 MEQ/L (21-32); CHLORIDE LEVEL 88 MEQ/L (98-107); CREATININE FOR GFR 0.62 MG/DL (0.55-1.30); GLOMERULAR FILTRATION RATE > 60.0 (>51); GLUCOSE, FASTING 254 MG/DL (70-100); POTASSIUM SERUM 3.4 MEQ/L (3.5-5.1); SODIUM LEVEL 134 MEQ/L (136-145)
[2019-02-06] MEDS: IPRATROPIUM 0.5MG/ALBUTEROL 2.5MG INH SOL UD 3ML (DUONEB)(J7620) NEB SCH ×3 (07:10→22:05)
[2019-02-06] MEDS ORDERED: POTASSIUM CHLORIDE 10 MEQ SR TABLET PO ONE (07:45)
[2019-02-06] MEDS: DOCUSATE SODIUM 100 MG CAP PO SCH ×2 (08:40→20:19)
[2019-02-06] MEDS: methylPREDNISolone INJ 125 MG/2 ML VIAL (J2930) IV SCH (08:40)
[2019-02-06] MEDS: HEPARIN SOD (PORCINE) 5000 UNITS/ML VIAL SC SCH ×2 (08:40→20:18)
[2019-02-06] MEDS: FUROSEMIDE 40 MG TAB PO SCH (08:41)
[2019-02-06] MEDS: OMEPRAZOLE 20 MG CAP PO SCH (08:41)
[2019-02-06] MEDS: BENZONATATE 100 MG CAP PO SCH ×3 (08:42→20:19)
[2019-02-06] MEDS: ASPIRIN 81 MG ENTERIC TAB PO SCH (08:42)
[2019-02-06] MEDS: NICOTINE 14 MG/24 HR TRANSDERMAL TD SCH (08:42)
[2019-02-06 14:41] VITALS: BP 135/90
--- NOTE | 2019-02-06 14:41 | IPNPDOC ---
Subjective Date Seen The patient was seen on 02/06/19. Subjective Chief Complaint/HPI Patient seen and examined at the bedside. Reports her respiratory status is slowly improving. She is continuing to progress with physical therapy. No acute overnight events noted. Objective Physical Examination General Exam: Positive: Alert, Cooperative, No Acute Distress, Other (morbidly obese) ENT Exam: Positive: Atraumatic Neck Exam: Negative: JVD Chest Exam: Positive: Diminished (severely diminished air entry globally) Heart Exam: Positive: Rate Normal, Normal S1, Normal S2 Abdomen Exam: Positive: Soft; Negative: Tenderness Extremity Exam: Negative: Tenderness, Swelling Psych Exam: Positive: Mental status NL, Mood NL, Oriented x 3 Assessment /Plan Plan/VTE VTE Prophylaxis Ordered?: Yes Plan COPD Exacerbation Patient with end-stage COPD IV Steroids down-tapered Cont Inhaler, Serial Nebs as ordered Respiratory status continues to improve slowly, and is nearing baseline Patient counseled at length about smoking cessation PT/OT on board for functional optimization Tobacco abuse Cessation counseling provided as noted above Morbid obesity Complicating care Peripheral neuropathy Continue gabapentin Chronic anemia Stable. Gastroesophageal reflux disease Continue with omeprazole Dyslipidemia Continue statin Anxiety Continue meds as ordered Seasonal allergies Singulair DISPOSITION: Anticipate discharge home in 24-48 hours pending PT clearance. VS, I&O, 24H, Fishbone Vital Signs/I&O Vital Signs Date Time Temp Pulse Resp B/P (MAP) Pulse Ox O2 Delivery O2 Flow Rate FiO2 02/06/19 08:00 4.0 02/06/19 06:00 98.8 84 20 134/68 (90) 96 02/04/19 23:36 Nasal Cannula I&O- Last 24 Hours up to 6 AM 02/06/19 06:00 Intake Total 2160 ml Output Total 0 ml Balance 2160 ml Laboratory Data 24H LABS Laboratory Tests 2 02/06/19 05:28: Nucleated Red Blood Cells % (auto) 0.0, Anion Gap 2L, Glomerular Filtration Rate > 60.0, Blood Urea Nitrogen 15, Creatinine 0.62, Sodium Level 134L, Potassium Level 3.4L, Chloride Level 88L, Carbon Dioxide Level 44H, Calcium Level 8.9 CBC/BMP Laboratory Tests 02/06/19 05:28 Red Blood Count 3.90 L, Mean Corpuscular Volume 84.4, Mean Corpuscular Hemoglobin 24.9 L, Mean Corpuscular Hemoglobin Concent 29.5 L, Red Cell Distribution Width 12.5, Calcium Level 8.9 Microbiology Microbiology 02/02/19 Blood Culture - Preliminary, Resulted No Growth after 72 hours. All specime... 02/02/19 Blood Culture - Preliminary, Resulted No Growth after 72 hours. All specime... 02/03/19 Respiratory Virus Panel (PCR) ([facility]) - Final, Complete DANYEL ABARCA MD Feb 06, 2019 14:41
[2019-02-06] MEDS: ATORVASTATIN 20 MG TAB PO SCH (20:18)
[2019-02-06] MEDS: AMITRIPTYLINE 25 MG TAB PO SCH (20:18)
[2019-02-06] MEDS: methylPREDNISolone INJ 40 MG/1 ML VIAL (J2920) IV SCH (20:19)
[2019-02-06] MEDS: MONTELUKAST 10 MG TAB PO SCH (20:19)
[2019-02-06 22:00] VITALS: BP 148/85
[2019-02-07 06:00] VITALS: BP 119/78
[2019-02-07 06:25] LABS: HEMATOCRIT 33.8 % (36.0-47.0); HEMOGLOBIN 9.8 g/dl (12.0-15.5); MEAN CORPUSCULAR HEMOGLOBIN 25.2 pg (27.0-33.0); MEAN CORPUSCULAR VOLUME 86.9 fl (80.0-96.0); PLATELET COUNT, AUTOMATED 315 10^3/uL (150-450); RED BLOOD COUNT 3.89 10^6/uL (4.00-5.40); WHITE BLOOD COUNT 11.2 10^3/uL (4.0-10.0)
[2019-02-07 07:02] LABS: BLOOD UREA NITROGEN 14 MG/DL (7-18); CHLORIDE LEVEL 91 MEQ/L (98-107); CREATININE FOR GFR 0.57 MG/DL (0.55-1.30); GLOMERULAR FILTRATION RATE > 60.0 (>51); GLUCOSE, FASTING 110 MG/DL (70-100); POTASSIUM SERUM 5.5 MEQ/L (3.5-5.1); SODIUM LEVEL 138 MEQ/L (136-145)
[2019-02-07 07:03] LABS: CARBON DIOXIDE LEVEL 47 MEQ/L (21-32)
--- NOTE | 2019-02-07 07:52 | IPNPDOC ---
Subjective Date Seen The patient was seen on 02/07/19. Subjective Chief Complaint/HPI Continues to have SOb but better than before. Has cough but unable to bring anything up. Complains of abdominal tightness and hardness like a ball. DI have 1 bowel movement yesterday after 6 days. Still may be constipated so will give bowel regimen Objective Physical Examination General Exam: Positive: Alert, Cooperative, No Acute Distress, Other (morbidly obese) ENT Exam: Positive: Atraumatic Neck Exam: Negative: JVD Chest Exam: Positive: Rhonchi, Wheezing, Diminished (severely diminished air entry globally) Heart Exam: Positive: Rate Normal, Normal S1, Normal S2 Abdomen Exam: Positive: Soft; Negative: Tenderness Extremity Exam: Negative: Tenderness, Swelling Psych Exam: Positive: Mental status NL, Mood NL, Oriented x 3 Assessment /Plan Assessment COPD Exacerbation Patient with end-stage COPD IV Steroids down-tapered restarted Advair and spiriva and azithromycin. Serial Nebs as ordered Respiratory status continues to improve slowly, and is nearing baseline Patient counseled at length about smoking cessation PT/OT on board for functional optimization Chronic respiratory failure with hypoxia and hypercarbia. continue management for copd and oxygen supplementation patient at present on 4 L Moderate to severe pulmonary hypertension with acute on chronic right heart failure continue lasix. Acute on chronic systolic CHF EF of 49% with hypertensive heart disease. will give IV lasix today. Tobacco abuse Cessation counseling provided as noted above Morbid obesity Complicating care Peripheral neuropathy Continue gabapentin Chronic anemia Stable. Gastroesophageal reflux disease Continue with omeprazole Dyslipidemia Continue statin Anxiety Continue meds as ordered Seasonal allergies Singulair DISPOSITION: Anticipate discharge home in 48 hours pending PT clearance. Plan/VTE VTE Prophylaxis Ordered?: Yes VS, I&O, 24H, Fishbone Vital Signs/I&O Vital Signs Date Time Temp Pulse Resp B/P (MAP) Pulse Ox O2 Delivery O2 Flow Rate FiO2 02/07/19 06:00 96.9 95 20 119/78 (92) 93 3.0 02/04/19 23:36 Nasal Cannula I&O- Last 24 Hours up to 6 AM 02/07/19 06:00 Intake Total 1500 ml Output Total 1100 ml Balance 400 ml Laboratory Data 24H LABS Laboratory Tests 2 02/07/19 06:02: Nucleated Red Blood Cells % (auto) 0.0, Anion Gap 0L, Glomerular Filtration Rate > 60.0, Blood Urea Nitrogen 14, Creatinine 0.57, Sodium Level 138, Potassium Level 5.5H, Chloride Level 91L, Carbon Dioxide Level 47H, Calcium Level 9.0 CBC/BMP Laboratory Tests 02/07/19 06:02 Red Blood Count 3.89 L, Mean Corpuscular Volume 86.9, Mean Corpuscular Hemoglobin 25.2 L, Mean Corpuscular Hemoglobin Concent 29.0 L, Red Cell Distribution Width 12.5, Calcium Level 9.0 Microbiology Microbiology 02/02/19 Blood Culture - Preliminary, Resulted No Growth after 72 hours. All specime... 02/02/19 Blood Culture - Preliminary, Resulted No Growth after 72 hours. All specime... 02/03/19 Respiratory Virus Panel (PCR) ([facility]) - Final, Complete HERMINIA GORDILLO MD Feb 07, 2019 07:52
[2019-02-07] MEDS: ALBUTEROL SULFATE 2.5 MG/0.5 ML INH NEB SOLN NEB SCH ×3 (08:00→20:00)
[2019-02-07] MEDS: IPRATROPIUM 0.5MG/ALBUTEROL 2.5MG INH SOL UD 3ML (DUONEB)(J7620) NEB PRN ×2 (08:02→23:26)
[2019-02-07] MEDS: ADVAIR HFA 230/21MCG INHALER INH SCH ×2 (08:02→20:53)
[2019-02-07 08:06] LABS: ABG BASE EXCESS 12.9 (-2.0-2.0); ABG HCO3 41.7 MEQ/L (22.0-26.0); ABG O2 SATURATION 98.4 % (95.0-99.0); ABG PARTIAL PRESSURE O2 123.9 mmHg (75.0-100.0); ABG STANDARD HCO3 36.7 MEQ/L (22.0-26.0); ABG TOTAL CO2 44.1 MEQ/L (22.0-29.0); ABG pH (ARTERIAL) 7.329 UNITS (7.350-7.450)
[2019-02-07] MEDS ORDERED: MOM 30ML SUSPENSION UDC PO SCH (09:00)
[2019-02-07] MEDS: HEPARIN SOD (PORCINE) 5000 UNITS/ML VIAL SC SCH ×2 (09:01→21:30)
[2019-02-07] MEDS: methylPREDNISolone INJ 40 MG/1 ML VIAL (J2920) IV SCH ×2 (09:01→15:06)
[2019-02-07] MEDS: FUROSEMIDE 40 MG/4 ML VIAL (J1940) IV SCH (09:01)
[2019-02-07] MEDS: BENZONATATE 100 MG CAP PO SCH ×3 (09:01→21:29)
[2019-02-07] MEDS: AZITHROMYCIN 250 MG TAB PO SCH (09:02)
[2019-02-07] MEDS: ASPIRIN 81 MG ENTERIC TAB PO SCH (09:02)
[2019-02-07] MEDS: SENOKOT S TAB PO SCH ×2 (09:02→21:00)
[2019-02-07] MEDS: OMEPRAZOLE 20 MG CAP PO SCH (09:02)
[2019-02-07] MEDS: NICOTINE 14 MG/24 HR TRANSDERMAL TD SCH (09:03)
[2019-02-07] MEDS: TIOTROPIUM INHALER/CAPSULE (SPIRIVA) INH SCH (11:18)
[2019-02-07] MEDS: ALPRAZolam 0.25 MG TAB PO PRN (12:23)
[2019-02-07 14:20] VITALS: BP 139/85
[2019-02-07 17:22] LABS: ABG BASE EXCESS 14.7 (-2.0-2.0); ABG HCO3 42.7 MEQ/L (22.0-26.0); ABG O2 SATURATION 94.4 % (95.0-99.0); ABG PARTIAL PRESSURE O2 73.1 mmHg (75.0-100.0); ABG STANDARD HCO3 38.5 MEQ/L (22.0-26.0); ABG TOTAL CO2 44.9 MEQ/L (22.0-29.0); ABG pH (ARTERIAL) 7.384 UNITS (7.350-7.450)
[2019-02-07 17:23] LABS: ABG PARTIAL PRESSURE CO2 73.1 mmHg (35.0-45.0)
[2019-02-07] MEDS: ACETAMINOPHEN TAB 650MG DOSE (2X325MG) PO PRN (21:29)
[2019-02-07] MEDS: ATORVASTATIN 20 MG TAB PO SCH (21:29)
[2019-02-07] MEDS: AMITRIPTYLINE 25 MG TAB PO SCH (21:29)
[2019-02-07] MEDS: MONTELUKAST 10 MG TAB PO SCH (21:29)
[2019-02-07 22:00] VITALS: BP 142/89
[2019-02-08] MEDS: ALPRAZolam 0.25 MG TAB PO PRN (00:01)
[2019-02-08] MEDS: methylPREDNISolone INJ 40 MG/1 ML VIAL (J2920) IV SCH ×3 (00:01→15:21)
[2019-02-08] MEDS: ALBUTEROL SULFATE 2.5 MG/0.5 ML INH NEB SOLN NEB SCH ×4 (01:46→19:36)
[2019-02-08 06:00] VITALS: BP 154/81
[2019-02-08 06:01] LABS: HEMATOCRIT 36.1 % (36.0-47.0); HEMOGLOBIN 10.4 g/dl (12.0-15.5); MEAN CORPUSCULAR HEMOGLOBIN 25.1 pg (27.0-33.0); MEAN CORPUSCULAR HGB CONC 28.8 g/dl (32.0-36.5); MEAN CORPUSCULAR VOLUME 87.2 fl (80.0-96.0); PLATELET COUNT, AUTOMATED 312 10^3/uL (150-450); RED BLOOD COUNT 4.14 10^6/uL (4.00-5.40); WHITE BLOOD COUNT 11.8 10^3/uL (4.0-10.0)
[2019-02-08 06:29] LABS: BLOOD UREA NITROGEN 14 MG/DL (7-18); CALCIUM LEVEL 9.4 MG/DL (8.5-10.1); CARBON DIOXIDE LEVEL 45 MEQ/L (21-32); CHLORIDE LEVEL 90 MEQ/L (98-107); GLOMERULAR FILTRATION RATE > 60.0 (>51); GLUCOSE, FASTING 174 MG/DL (70-100); POTASSIUM SERUM 5.7 MEQ/L (3.5-5.1); SODIUM LEVEL 137 MEQ/L (136-145)
[2019-02-08] MEDS: TIOTROPIUM INHALER/CAPSULE (SPIRIVA) INH SCH (07:34)
[2019-02-08] MEDS: ADVAIR HFA 230/21MCG INHALER INH SCH ×2 (07:35→19:36)
[2019-02-08 08:07] LABS: ABG BASE EXCESS 14.4 (-2.0-2.0); ABG HCO3 42.9 MEQ/L (22.0-26.0); ABG O2 SATURATION 95.9 % (95.0-99.0); ABG PARTIAL PRESSURE O2 85.3 mmHg (75.0-100.0); ABG STANDARD HCO3 38.1 MEQ/L (22.0-26.0); ABG TOTAL CO2 45.3 MEQ/L (22.0-29.0); ABG pH (ARTERIAL) 7.359 UNITS (7.350-7.450)
[2019-02-08 08:11] LABS: ABG PARTIAL PRESSURE CO2 77.8 mmHg (35.0-45.0)
[2019-02-08] MEDS: MIRALAX *UNIT DOSE* 17GM PACKET PO SCH (08:24)
[2019-02-08] MEDS: HEPARIN SOD (PORCINE) 5000 UNITS/ML VIAL SC SCH ×2 (08:24→20:50)
[2019-02-08] MEDS: NICOTINE 14 MG/24 HR TRANSDERMAL TD SCH (08:25)
[2019-02-08] MEDS: FUROSEMIDE 40 MG/4 ML VIAL (J1940) IV SCH (08:25)
[2019-02-08] MEDS: BENZONATATE 100 MG CAP PO SCH ×3 (08:25→20:51)
[2019-02-08] MEDS: SENOKOT S TAB PO SCH ×2 (08:25→20:50)
[2019-02-08] MEDS: OMEPRAZOLE 20 MG CAP PO SCH (08:26)
[2019-02-08] MEDS: ASPIRIN 81 MG ENTERIC TAB PO SCH (08:26)
[2019-02-08] MEDS: ACETAMINOPHEN TAB 650MG DOSE (2X325MG) PO PRN (14:17)
[2019-02-08 15:40] VITALS: BP 156/77
--- NOTE | 2019-02-08 16:54 | IPNPDOC ---
Subjective Date Seen The patient was seen on 02/08/19. Subjective Chief Complaint/HPI No new complaints today. Still says her SOb is not yet improved. Objective Physical Examination General Exam: Positive: Alert, Cooperative, No Acute Distress, Other (morbidly obese) ENT Exam: Positive: Atraumatic Neck Exam: Negative: JVD Chest Exam: Positive: Clear to auscultation, Diminished (severely diminished air entry globally) Heart Exam: Positive: Rate Normal, Normal S1, Normal S2 Abdomen Exam: Positive: Soft; Negative: Tenderness Extremity Exam: Negative: Tenderness, Swelling Psych Exam: Positive: Mental status NL, Mood NL, Oriented x 3 Assessment /Plan Assessment COPD Exacerbation Patient with end-stage COPD IV Steroids down-tapered restarted Advair and spiriva and azithromycin. Serial Nebs as ordered Respiratory status continues to improve slowly, and is nearing baseline Patient counseled at length about smoking cessation PT/OT on board for functional optimization Chronic respiratory failure with hypoxia and hypercarbia. continue management for copd and oxygen supplementation patient at present on 4 L Abg stable. Moderate to severe pulmonary hypertension with acute on chronic right heart failure continue lasix. Acute on chronic systolic CHF EF of 49% with hypertensive heart disease. will give IV lasix today. Tobacco abuse Cessation counseling provided as noted above Morbid obesity Complicating care Peripheral neuropathy Continue gabapentin Chronic anemia Stable. Gastroesophageal reflux disease Continue with omeprazole Dyslipidemia Continue statin Anxiety Continue meds as ordered Seasonal allergies Singulair DISPOSITION: Anticipate discharge home in 48 hours pending PT clearance. Plan/VTE VTE Prophylaxis Ordered?: Yes VS, I&O, 24H, Fishbone Vital Signs/I&O Vital Signs Date Time Temp Pulse Resp B/P (MAP) Pulse Ox O2 Delivery O2 Flow Rate FiO2 02/08/19 13:12 108 02/08/19 08:00 3.0 02/08/19 06:00 98.0 18 154/81 (105) 98 02/04/19 23:36 Nasal Cannula I&O- Last 24 Hours up to 6 AM 02/08/19 06:00 Intake Total 2520 ml Output Total 2250 ml Balance 270 ml Laboratory Data 24H LABS Laboratory Tests 2 02/07/19 17:06: Blood Gas Bicarbonate Standard 38.5H, Arterial Blood pH 7.384, Arterial Blood Partial Pressure CO2 73.1*H, Arterial Blood Partial Pressure O2 73.1L, Arterial Blood Total CO2 44.9H, Arterial Blood HCO3 42.7H, Arterial Blood Base Excess 14.7H, Arterial Blood Oxygen Saturation 94.4L 02/08/19 05:18: Nucleated Red Blood Cells % (auto) 0.0, Anion Gap 2L, Glomerular Filtration Rate > 60.0, Blood Urea Nitrogen 14, Creatinine 0.60, Sodium Level 137, Potassium Level 5.7H, Chloride Level 90L, Carbon Dioxide Level 45H, Calcium Level 9.4 02/08/19 07:47: Blood Gas Bicarbonate Standard 38.1H, Arterial Blood pH 7.359, Arterial Blood Partial Pressure CO2 77.8*H, Arterial Blood Partial Pressure O2 85.3, Arterial Blood Total CO2 45.3H, Arterial Blood HCO3 42.9H, Arterial Blood Base Excess 14.4H, Arterial Blood Oxygen Saturation 95.9 CBC/BMP Laboratory Tests 02/08/19 05:18 Red Blood Count 4.14, Mean Corpuscular Volume 87.2, Mean Corpuscular Hemoglobin 25.1 L, Mean Corpuscular Hemoglobin Concent 28.8 L, Red Cell Distribution Width 12.5, Calcium Level 9.4 Microbiology Microbiology 02/02/19 Blood Culture - Final, Complete NO GROWTH AFTER 5 DAYS 02/02/19 Blood Culture - Final, Complete NO GROWTH AFTER 5 DAYS 02/03/19 Respiratory Virus Panel (PCR) ([facility]) - Final, Complete HERMINIA GORDILLO MD Feb 08, 2019 16:54
[2019-02-08] MEDS: SODIUM CHLORIDE HYPERTONIC 3% 15ML NEB SOL INH SCH (19:36)
[2019-02-08] MEDS: ATORVASTATIN 20 MG TAB PO SCH (20:50)
[2019-02-08] MEDS: guaiFENesin ER 600 MG TAB PO SCH (20:50)
[2019-02-08] MEDS: MONTELUKAST 10 MG TAB PO SCH (20:50)
[2019-02-08] MEDS: AMITRIPTYLINE 25 MG TAB PO SCH (20:51)
[2019-02-08 22:00] VITALS: BP 137/69
[2019-02-09] MEDS ORDERED: methylPREDNISolone INJ 40 MG/1 ML VIAL (J2920) IV SCH
[2019-02-09] MEDS: SODIUM CHLORIDE HYPERTONIC 3% 15ML NEB SOL INH SCH ×4 (00:56→20:00)
[2019-02-09] MEDS: ALBUTEROL SULFATE 2.5 MG/0.5 ML INH NEB SOLN NEB SCH ×4 (00:56→20:00)
[2019-02-09 06:00] VITALS: BP 148/89
[2019-02-09 06:29] LABS: HEMATOCRIT 34.8 % (36.0-47.0); HEMOGLOBIN 10.2 g/dl (12.0-15.5); MEAN CORPUSCULAR HEMOGLOBIN 25.2 pg (27.0-33.0); MEAN CORPUSCULAR HGB CONC 29.3 g/dl (32.0-36.5); MEAN CORPUSCULAR VOLUME 85.9 fl (80.0-96.0); PLATELET COUNT, AUTOMATED 322 10^3/uL (150-450); RED BLOOD COUNT 4.05 10^6/uL (4.00-5.40); WHITE BLOOD COUNT 10.4 10^3/uL (4.0-10.0)
[2019-02-09 07:05] LABS: BLOOD UREA NITROGEN 18 MG/DL (7-18); CALCIUM LEVEL 9.7 MG/DL (8.5-10.1); CARBON DIOXIDE LEVEL 43 MEQ/L (21-32); CHLORIDE LEVEL 91 MEQ/L (98-107); CREATININE FOR GFR 0.62 MG/DL (0.55-1.30); GLOMERULAR FILTRATION RATE > 60.0 (>51); GLUCOSE, FASTING 148 MG/DL (70-100); POTASSIUM SERUM 4.5 MEQ/L (3.5-5.1); SODIUM LEVEL 136 MEQ/L (136-145)
[2019-02-09] MEDS: TIOTROPIUM INHALER/CAPSULE (SPIRIVA) INH SCH (07:10)
[2019-02-09] MEDS: ADVAIR HFA 230/21MCG INHALER INH SCH ×2 (07:11→20:20)
[2019-02-09] MEDS: predniSONE 50 MG TAB PO SCH (08:53)
[2019-02-09] MEDS: guaiFENesin ER 600 MG TAB PO SCH ×2 (08:53→21:49)
[2019-02-09] MEDS: SENOKOT S TAB PO SCH ×2 (08:53→21:48)
[2019-02-09] MEDS: AZITHROMYCIN 250 MG TAB PO SCH (08:53)
[2019-02-09] MEDS: OMEPRAZOLE 20 MG CAP PO SCH (08:53)
[2019-02-09] MEDS: BENZONATATE 100 MG CAP PO SCH ×3 (08:53→21:49)
[2019-02-09] MEDS: NICOTINE 14 MG/24 HR TRANSDERMAL TD SCH (08:53)
[2019-02-09] MEDS: ASPIRIN 81 MG ENTERIC TAB PO SCH (08:53)
[2019-02-09] MEDS: HEPARIN SOD (PORCINE) 5000 UNITS/ML VIAL SC SCH ×2 (08:53→21:49)
[2019-02-09] MEDS: MIRALAX *UNIT DOSE* 17GM PACKET PO SCH (08:54)
[2019-02-09] MEDS: FUROSEMIDE 40 MG TAB PO SCH ×2 (10:35→16:07)
--- NOTE | 2019-02-09 10:45 | IPNPDOC ---
Subjective Date Seen The patient was seen on 02/09/19. Subjective Chief Complaint/HPI No new issues overnight. Leg swelling still present. Feeling better, SoB has now improved and she feels she is close to baseline. Objective Physical Examination General Exam: Positive: Alert, Cooperative, No Acute Distress, Other (morbidly obese) ENT Exam: Positive: Atraumatic Neck Exam: Negative: JVD Chest Exam: Positive: Clear to auscultation, Diminished (severely diminished air entry globally) Heart Exam: Positive: Rate Normal, Normal S1, Normal S2 Abdomen Exam: Positive: Soft; Negative: Tenderness Extremity Exam: Positive: Edema; Negative: Tenderness Psych Exam: Positive: Mental status NL, Mood NL, Oriented x 3 Assessment /Plan Assessment COPD Exacerbation Patient with end-stage COPD IV Steroids down-tapered restarted Advair and spiriva and azithromycin. Serial Nebs as ordered Respiratory status continues to improve slowly, and is nearing baseline Patient counseled at length about smoking cessation PT/OT on board for functional optimization Chronic respiratory failure with hypoxia and hypercarbia. continue management for copd and oxygen supplementation patient at present on 4 L Abg stable. Moderate to severe pulmonary hypertension with acute on chronic right heart failure continue lasix. Acute on chronic systolic CHF EF of 49% with hypertensive heart disease. continue lasix Tobacco abuse Cessation counseling provided as noted above Morbid obesity Complicating care Peripheral neuropathy Continue gabapentin Chronic anemia Stable. Gastroesophageal reflux disease Continue with omeprazole Dyslipidemia Continue statin Anxiety Continue meds as ordered Seasonal allergies Singulair DISPOSITION: Anticipate discharge home in 48 hours pending PT clearance. Plan/VTE VTE Prophylaxis Ordered?: Yes VS, I&O, 24H, Fishbone Vital Signs/I&O Vital Signs Date Time Temp Pulse Resp B/P (MAP) Pulse Ox O2 Delivery O2 Flow Rate FiO2 02/09/19 07:49 2.5 02/09/19 06:00 97.6 98 19 148/89 (108) 99 02/04/19 23:36 Nasal Cannula I&O- Last 24 Hours up to 6 AM 02/09/19 06:00 Intake Total 900 ml Output Total 1300 ml Balance -400 ml Laboratory Data 24H LABS Laboratory Tests 2 02/09/19 05:10: Nucleated Red Blood Cells % (auto) 0.0, Anion Gap 2L, Glomerular Filtration Rate > 60.0, Blood Urea Nitrogen 18, Creatinine 0.62, Sodium Level 136, Potassium Level 4.5#, Chloride Level 91L, Carbon Dioxide Level 43H, Calcium Level 9.7 CBC/BMP Laboratory Tests 02/09/19 05:10 Red Blood Count 4.05, Mean Corpuscular Volume 85.9, Mean Corpuscular Hemoglobin 25.2 L, Mean Corpuscular Hemoglobin Concent 29.3 L, Red Cell Distribution Width 12.5, Calcium Level 9.7 Microbiology Microbiology 02/02/19 Blood Culture - Final, Complete NO GROWTH AFTER 5 DAYS 02/02/19 Blood Culture - Final, Complete NO GROWTH AFTER 5 DAYS 02/03/19 Respiratory Virus Panel (PCR) ([facility]) - Final, Complete HERMINIA GORDILLO MD Feb 09, 2019 10:45
[2019-02-09 14:00] VITALS: BP 152/80
[2019-02-09] MEDS: ATORVASTATIN 20 MG TAB PO SCH (21:49)
[2019-02-09] MEDS: MONTELUKAST 10 MG TAB PO SCH (21:49)
[2019-02-09] MEDS: AMITRIPTYLINE 25 MG TAB PO SCH (21:49)
[2019-02-09 22:00] VITALS: BP 149/85
[2019-02-10] MEDS: ALBUTEROL SULFATE 2.5 MG/0.5 ML INH NEB SOLN NEB SCH ×2 (02:11→06:03)
[2019-02-10] MEDS: SODIUM CHLORIDE HYPERTONIC 3% 15ML NEB SOL INH SCH ×2 (02:11→06:03)
[2019-02-10 06:00] VITALS: BP 151/91
[2019-02-10] MEDS: ADVAIR HFA 230/21MCG INHALER INH SCH (06:03)
[2019-02-10] MEDS: TIOTROPIUM INHALER/CAPSULE (SPIRIVA) INH SCH (06:04)
[2019-02-10 06:42] LABS: HEMATOCRIT 35.8 % (36.0-47.0); HEMOGLOBIN 10.7 g/dl (12.0-15.5); MEAN CORPUSCULAR HEMOGLOBIN 25.1 pg (27.0-33.0); MEAN CORPUSCULAR HGB CONC 29.9 g/dl (32.0-36.5); PLATELET COUNT, AUTOMATED 319 10^3/uL (150-450); RED BLOOD COUNT 4.26 10^6/uL (4.00-5.40); WHITE BLOOD COUNT 12.2 10^3/uL (4.0-10.0)
[2019-02-10] MEDS ORDERED: PRED10TA2 PO (07:02)
[2019-02-10] MEDS ORDERED: ALPR0.25 PO (07:02)
[2019-02-10] MEDS ORDERED: MUCI600T31 PO (07:02)
[2019-02-10 07:03] LABS: BLOOD UREA NITROGEN 20 MG/DL (7-18); CALCIUM LEVEL 9.1 MG/DL (8.5-10.1); CARBON DIOXIDE LEVEL 37 MEQ/L (21-32); CHLORIDE LEVEL 90 MEQ/L (98-107); CREATININE FOR GFR 0.63 MG/DL (0.55-1.30); GLOMERULAR FILTRATION RATE > 60.0 (>51); GLUCOSE, FASTING 93 MG/DL (70-100); POTASSIUM SERUM 3.7 MEQ/L (3.5-5.1); SODIUM LEVEL 134 MEQ/L (136-145)
[2019-02-10] MEDS ORDERED: LASI40TA9 PO (07:05)
[2019-02-10] MEDS: HEPARIN SOD (PORCINE) 5000 UNITS/ML VIAL SC SCH (08:29)
[2019-02-10] MEDS: NICOTINE 14 MG/24 HR TRANSDERMAL TD SCH (08:30)
[2019-02-10] MEDS: SENOKOT S TAB PO SCH (08:31)
[2019-02-10] MEDS: BENZONATATE 100 MG CAP PO SCH (08:31)
[2019-02-10] MEDS: OMEPRAZOLE 20 MG CAP PO SCH (08:31)
[2019-02-10] MEDS: predniSONE 50 MG TAB PO SCH (08:32)
[2019-02-10] MEDS: guaiFENesin ER 600 MG TAB PO SCH (08:32)
[2019-02-10] MEDS: FUROSEMIDE 40 MG TAB PO SCH (08:33)
[2019-02-10] MEDS: ASPIRIN 81 MG ENTERIC TAB PO SCH (08:33)
[2019-02-10] MEDS: MIRALAX *UNIT DOSE* 17GM PACKET PO SCH (08:40)
--- NOTE | 2019-02-10 15:54 | DS.PDOC ---
Discharge Summary General Date of Admission February 02, 2019 at 23:04 Date of Discharge 02/10/19 Discharge Summary PROCEDURES PERFORMED DURING STAY: [None]. DISCHARGE DIAGNOSES: COPD exacerbation Chronic respiratory failure with hypoxia and hypercarbia Moderate to severe pulmonary hypertension with right heart failure Acute on chronic systolic heart failure Acute on chronic right heart failure. Morbid obesity Anxiety Peripheral neuropathy Chronic anemia GERD dyslipidemia COMPLICATIONS/CHIEF COMPLAINT: Copd Exacerbation. HISTORY OF PRESENT ILLNESS: See history and physical HOSPITAL COURSE: 58 year old female admitted with COPD exacerbation. COPD Exacerbation Patient with end-stage COPD Advair and spiriva and azithromycin. Serial Nebs as ordered Respiratory status continues to improve slowly, and is nearing baseline Patient counseled at length about smoking cessation PT/OT on board for functional optimization Chronic respiratory failure with hypoxia and hypercarbia. continue management for copd and oxygen supplementation pateint doing well with 2.5 at rest and 3 to 3.5 on ambulation. Higher oxygen which she was using at home 3L and 4 l is causing increased co2 retention. ABG better after cutting down on the oxygen. Patient had to be educated again and again about not using too much oxygen. She was very adamant about cutting down on the oxygen. Was getting excessive anxious. So started her on some prn xanax which has been helping to manage her anxiety and she has been using less oxygen 2.5L and 3L Moderate to severe pulmonary hypertension with acute on chronic right heart failure continue lasix. Acute on chronic systolic CHF EF of 49% with hypertensive heart disease. continue lasix Tobacco abuse Cessation counseling provided as noted above Morbid obesity Complicating care Peripheral neuropathy Continue gabapentin Chronic anemia Stable. Gastroesophageal reflux disease Continue with omeprazole Dyslipidemia Continue statin Anxiety Continue meds as ordered Seasonal allergies Singulair DISCHARGE MEDICATIONS: Please see below. ALLERGIES: Please see below. PHYSICAL EXAMINATION ON DISCHARGE: VITAL SIGNS: Please see below. General Exam: Positive: Alert, Cooperative, No Acute Distress, Other (morbidly obese) ENT Exam: Positive: Atraumatic Neck Exam: Negative: JVD Chest Exam: Positive: Clear to auscultation, Diminished (severely diminished air entry globally) Heart Exam: Positive: Rate Normal, Normal S1, Normal S2 Abdomen Exam: Positive: Soft; Negative: Tenderness Extremity Exam: Positive: Edema; Negative: Tenderness Psych Exam: Positive: Mental status NL, Mood NL, Oriented x 3 LABORATORY DATA: Please see below. ACTIVITY: [As tolerated]. DIET: as tolerated DISPOSITION: Home Health Service. DISCHARGE INSTRUCTIONS: PMD in 1 week DISCHARGE CONDITION: [Stable]. TIME SPENT ON DISCHARGE: 40 minutes. Vital Signs/I&Os Vital Signs Date Time Temp Pulse Resp B/P (MAP) Pulse Ox O2 Delivery O2 Flow Rate FiO2 02/10/19 09:00 2.5 02/10/19 06:00 97.6 121 20 151/91 (111) 90 02/04/19 23:36 Nasal Cannula I&O- Last 24 Hours up to 6 AM 02/10/19 06:00 Intake Total 2160 ml Output Total 0 ml Balance 2160 ml Laboratory Data Labs 24H Laboratory Tests 2 02/10/19 05:22: Nucleated Red Blood Cells % (auto) 0.0, Anion Gap 7L, Glomerular Filtration Rate > 60.0, Blood Urea Nitrogen 20H, Creatinine 0.63, Sodium Level 134L, Potassium Level 3.7, Chloride Level 90L, Carbon Dioxide Level 37H, Calcium Level 9.1 CBC/BMP Laboratory Tests 02/10/19 05:22 Red Blood Count 4.26, Mean Corpuscular Volume 84.0, Mean Corpuscular Hemoglobin 25.1 L, Mean Corpuscular Hemoglobin Concent 29.9 L, Red Cell Distribution Width 12.7, Calcium Level 9.1 Microbiology Microbiology 02/02/19 Blood Culture - Final, Complete NO GROWTH AFTER 5 DAYS 02/02/19 Blood Culture - Final, Complete NO GROWTH AFTER 5 DAYS 02/03/19 Respiratory Virus Panel (PCR) ([facility]) - Final, Complete Discharge Medications Scheduled Amitriptyline HCl (Amitriptyline HCl) 75 Mg Tab, 75 MG PO QHS, (Reported) Aspirin (Aspirin EC) 81 Mg Tab, 81 MG PO DAILY, (Reported) Atorvastatin Calcium (Atorvastatin Calcium) 20 Mg Tab, 20 MG PO QHS, (Reported) Azithromycin (Azithromycin) 500 Mg Tablet, 500 MG PO Q2D, (Reported) Docusate Sodium (Docusate Sodium) 100 Mg Cap, 100 MG PO BID, (Reported) Ergocalciferol (Vitamin D2) (Drisdol) 50,000 Unit Cap, 50,000 UNIT PO QWEEK, (Reported) SATURDAYS Furosemide (Furosemide) 40 Mg Tab, 40 MG PO DAILY, (Reported) Furosemide (Lasix) 40 Mg Tablet, 1 TAB PO QPM Every other day at 4 pm Guaifenesin (Mucinex) 600 Mg Tab.er.12h, 600 MG PO BID Meloxicam (Meloxicam) 15 Mg Tab, 15 MG PO DAILY, (Reported) Montelukast Sodium (Singulair) 10 Mg Tab, 10 MG PO QHS, (Reported) Omeprazole (Omeprazole) 40 Mg Cap, 40 MG PO DAILY, (Reported) Prednisone (Prednisone) 10 Mg Tablet, 10 MG PO TAPER Take 4 tabs daily x 3 days, then 3 tabs daily x 3 days, then 2 tabs daily x 3 days, then 1 tab daily x 3 days and stop Salmeterol/Fluticasone (Advair 500-50 Diskus) 28 Puff/Inhaler Aerp, 1 PUFF INH BID, (Reported) Tiotropium Dierks (Spiriva Respimat) 2.5 Mcg/Act Spr, 2 INHALATION INH DAILY, (Reported) Scheduled PRN Albuterol Sulfate (Ventolin Hfa) 108 Mcg/Act Aer, 2 PUFFS INH Q4H PRN for SHORTNESS OF BREATH, (Reported) Alprazolam (Alprazolam) 0.25 Mg Tablet, 0.25 MG PO Q12HP PRN for ANXIETY Ipratropium/Albuterol Sulfate (Iprat-Albut 0.5-3(2.5) mg/3 ml) 1 Margo Margo, 3 ML INH QID PRN for SHORTNESS OF BREATH, (Reported) Allergies Coded Allergies: No Known Drug Allergies (Verified Allergy, Unknown, 12/28/18) acetylcysteine (Verified Adverse Reaction, Intermediate, BRONCHOSPASM, 12/28/18) HERMINIA GORDILLO MD Feb 10, 2019 15:54
== END 2019-02-10 12:00 | disposition home health service (06) | DRG 140 ==
LOC: M ED 20:21 → M ED INP 23:04 → M MS5PR 02-03 01:56
PROVIDERS: ADMIT Internal Medicine; ATTEND Internal Medicine Nephrology
DX: J44.1 Chronic obstructive pulmonary disease with (acute) exacerbation (principal); I50.23 Acute on chronic systolic (congestive) heart failure; J96.11 Chronic respiratory failure with hypoxia; I27.20 Pulmonary hypertension, unspecified; J96.12 Chronic respiratory failure with hypercapnia; E66.01 Morbid (severe) obesity due to excess calories; E78.5 Hyperlipidemia, unspecified; K21.9 Gastro-esophageal reflux disease without esophagitis; D64.9 Anemia, unspecified; F41.9 Anxiety disorder, unspecified; F17.200 Nicotine dependence, unspecified, uncomplicated; Z79.82 Long term (current) use of aspirin; Z79.899 Other long term (current) drug therapy; Z88.8 Allergy status to other drugs, medicaments and biological substances; G62.9 Polyneuropathy, unspecified

== ENCOUNTER → 2019-05-19 | Outpatient (CLI) | payer OTHER ==
[~2019-05-19] MED LIST changes: +ALPR0.25 PO; +MUCI600T31 PO; -OMEP20CA3 PO; +OMEP20CA4 PO
--- NOTE | 2019-05-23 20:56 | SLEEPCENT ---
DATE OF PROCEDURE: 05/19/2019 Ordered by: Michael Noe DO Nocturnal polysomnography was performed for evaluation of sleep physiology in this patient with a history of excessive somnolence and nonrestorative sleep. 8 hours and 46 minutes of data were reviewed. There were 438 minutes and sleep identified. Sleep latency was prolonged at 31 minutes. REM latency was prolonged at 252 minutes. Sleep architecture was fair with two REM cycles noted. Overall sleep efficiency was 84.1%. The electrocardiogram showed a sinus rhythm with an average heart rate of 98 beats per minute. Rate range 92-104. EEG showed some alpha intrusion, possibly drug effect. No focal events were identified. There were only 7 respiratory events identified of 10 seconds in duration or greater for an apnea-hypopnea index of 1. Respiratory related arousal index was 0.3. Saturations remained 90% plus and though there was activity in the limb leads noted, limb movement arousals occurred only 1.9 times per hour. Snoring was noted over the entire study. IMPRESSION Normal nocturnal polysomnography was snoring.
== END ==
LOC: M SLEEP 19:38
PROVIDERS: ATTEND Internal Medicine Pulmonary Disease
DX: R06.83 Snoring (principal)